=== PATIENT | male | born 1975 | race Caucasian/White ===

== ENCOUNTER 2021-02-16 00:12 | Emergency (ER) | payer MEDICARE, MEDICAID, SELFPAY ==
[2021-02-16 00:14] VITALS: BP 140/89; PULSE 100; RESP 22; TEMP 36.6; O2SAT 96
--- NOTE | 2021-02-16 01:19 | ED.WOUNDLAC ---
HPI - Wound/Laceration General Chief Complaint: Wound/Laceration Stated Complaint: lip sore Time Seen by Provider: 02/16/21 00:21 History of Present Illness HPI narrative: Patient is a 45-year-old male who presents ER with a sore to his left upper lip. Intraoral. Reports it began spontaneously draining pus today. Worsening over the last 2 days. No fevers or chills or sweats. Patient reports she had a near syncopal episode and one of his brothers caught him and he thinks he struck his lip on his tooth. Related Data Allergies Allergy/AdvReac Type Severity Reaction Status Date / Time alprazolam [From Xanax] AdvReac Severe Agitated Verified 02/16/21 00:26 gabapentin AdvReac Severe Agitated Verified 02/16/21 00:26 baclofen AdvReac Unknown Gastrointestinal Verified 02/16/21 00:26 Upset enoxaparin [From Lovenox] AdvReac Unknown Other Verified 02/16/21 00:26 prednisone AdvReac Unknown Other Verified 02/16/21 00:26 warfarin AdvReac Unknown Other Verified 02/16/21 00:26 Review of Systems Constitutional: Constitutional: Denies chills and Denies fever(s) ENT: Denies dysphagia, Denies nasal congestion and Denies sore throat Integumentary/Breasts: Skin/Breast: Denies erythema and Denies rash Comments: Lip swelling and intraoral abscess. [facility] Past Medical History Medical History (Updated 02/16/21 @ 01:25 by Fabiano Rucker MD) Diabetes Hypertension Spinal stenosis Surgical History Surgical History (Updated 02/16/21 @ 01:24 by Fabiano Rucker MD) History of back surgery Social History Social History (Updated 02/16/21 @ 01:24 by Fabiano Rucker MD) Smokeless tobacco user: chewing tobacco Substance use type: marijuana Exam Narrative: GENERAL: Well-appearing, morbidly obese, and in no acute distress. HEAD: Normocephalic, atraumatic. ENT: Mucous membranes moist. Swelling to left upper lip with intraoral area where drainage was noted. No fluctuance. No overt cellulitis. SKIN: Warm, dry, no rash. NEURO: Alert and oriented x3. PSYCH: Normal mood and affect. Course Course Emergency Course: bedside ultrasound used and no pocket of pus could be identified. Suspect infection related to intraoral bacteria. Will start on Augmentin. [place] for pain. We will also give topical mupirocin. Discharge home. Vital Signs Vital signs: Vital Signs Temperature 97.8 F 02/16/21 00:14 Pulse Rate 100 02/16/21 00:14 Respiratory Rate 22 H 02/16/21 00:14 Blood Pressure 140/89 02/16/21 00:14 Pulse Oximetry 96 02/16/21 00:14 Temperature 97.8 F 02/16/21 00:14 Pulse Rate 111 H 02/16/21 01:28 Respiratory Rate 18 02/16/21 01:28 Blood Pressure 135/89 02/16/21 01:28 Pulse Oximetry 97 02/16/21 01:28 Discharge Plan Discharge Clinical Impression: Abscess Patient Disposition: Home, Self-Care Condition: Stable Instructions: Antibiotic Form, Abscess (ED) Additional Instructions: Perform warm salt water rinses to encourage softening of your wound and drainage. Return to the ER if you have fever over 100.4 ?F, you have worsening pain or swelling, or you have difficulty breathing or swallowing. Prescriptions: New amoxicillin-pot clavulanate [Augmentin] 875-125 mg tablet 1 tablet PO Q12H Qty: 20 RF: 0 mupirocin 2 % ointment 1 applic topical BID Qty: 15 RF: 0 Follow-up/Referrals: PHYSICIAN NOT ON STAFF,NONSTAFF [Non-Staff] - Jw Nathan MD [Physician] - 1 Week
[2021-02-16] MEDS: AMOXICILLIN/CLAVULANATE K 875-125 MG TAB 1 TABLET PO (01:27)
[2021-02-16 01:28] VITALS: BP 135/89; PULSE 111; RESP 18; O2SAT 97
[2021-02-16] MEDS: HYDROcodone/acetaminophen (*CRX) 5-325 MG TABLET 2 TAB PO (01:28)
== END 2021-02-16 01:53 | disposition home or self-care (01) ==
PROVIDERS: Emergency Provider Emergency Medicine
DX: K13.0 Diseases of lips (principal); E11.9 Type 2 diabetes mellitus without complications; I10 Essential (primary) hypertension; F17.220 Nicotine dependence, chewing tobacco, uncomplicated
CPT/HCPCS: 99283; A9270

== ENCOUNTER 2021-04-23 14:36 | Emergency (ER) | payer MEDICARE, MEDICAID, SELFPAY ==
--- NOTE | ~2021-04-23 | XR_ITS ---
EXAMINATION: XR chest 1V portable EXAM DATE: 04/23/2021 18:19 INDICATION: Shortness of breath. TECHNIQUE: Portable AP frontal chest x-ray was obtained. There is no prior study for comparison. FINDINGS: The lungs are clear. There are no pleural effusions. The cardiomediastinal silhouette is within normal limits. There is no pneumothorax suspected. The bones and soft tissues are unremarkab le. IMPRESSION: No acute cardiopulmonary findings. Reviewed, dictated and finalized at location A. CHING MACHINE SET UP OPERATOR
[2021-04-23 15:00] VITALS: BP 159/97; PULSE 103; RESP 20; O2SAT 99
--- NOTE | 2021-04-23 15:04 | ECG_ITS ---
Measurements Intervals [facility] Rate: 92 P: 51 NM: 176 QRS: 40 QRSD: 101 T: 40 QT: 340 QTc: 421 Interpretive Statements SINUS RHYTHM INCOMPLETE RIGHT BUNDLE BRANCH BLOCK BASELINE ARTIFACT- I, II, III, AVR, AVL, AVF, V1 BORDERLINE ECG Electronically Signed On 04-23-2021 15:20:16 SUPERVISOR THROWING DEPARTMENT by Kevon Solares D.O.
[2021-04-23 17:34] VITALS: BP 123/83; PULSE 92; RESP 22; O2SAT 97
[2021-04-23 17:39] LABS: Glucose Point of Care 90 mg/dl (65-105)
[2021-04-23 17:45] VITALS: O2SAT 97
[2021-04-23] MEDS: KETOROLAC 15 MG/ML VIAL (*BKC) IV PUSH (18:04)
[2021-04-23 18:16] LABS: Basophils Percent Auto 0.3 % (0.2-1.2); Eosinophils Absolute Auto 0.1 K/mm3 (0-0.3); Eosinophils Percent Auto 1.4 % (0-4.4); Hematocrit 47.1 % (42.0-52.0); Immature Granulocyte Absolute 0.02 K/mm3 (0.00-0.031); Immature Granulocyte Percent A 0.3 % (0-0.5); Lymphocytes Absolute Auto 2.28 K/mm3 (0.9-3.2); Lymphocytes Percent Auto 34.8 % (18.3-44.2); Mean Corpuscular Hemoglobin 30.8 pg (26-34); Mean Corpuscular Volume 90.8 fl (80-100); Mean Platelet Volume 9.9 fl (7.4-10.4); Monocytes Absolute Auto 0.5 K/mm3 (0.1-0.6); Monocytes Percent Auto 7.9 % (2.6-8.5); Neutrophils Absolute Auto 3.6 K/mm3 (1.3-6.7); Neutrophils Percent Auto 55.3 % (45.5-73.1); Platelet Count Result 261 k/mm3 (150-375); Red Blood Count 5.19 M/mm3 (4.6-6.20); Red Cell Distribution Width 13.1 % (11.5-14.5); White Blood Count 6.6 K/mm3 (4.5-10.0)
[2021-04-23 18:32] LABS: Alanine Aminotransferase 39 U/L (4-50); Albumin Level 5.1 g/dL (3.5-5.1); Alkaline Phosphatase 98 U/L (38-126); Anion Gap 13 mmol/L (8-16); Aspartate Amino Transferase 40 U/L (17-59); Bilirubin,Total 0.6 mg/dL (0.2-1.3); Blood Urea Nitrogen 27 mg/dL (9-20); Calcium 9.4 mg/dL (8.4-10.2); Carbon Dioxide 26 mmol/L (22-30); Chloride 99 mmol/L (98-107); Estimated CRCL calculation 122 ml/min; Estimated Glomerular Filt Rate > 60; Glucose 82 mg/dL (65-110); Sodium 138 mmol/L (137-145)
[2021-04-23 18:40] LABS: Troponin I < 0.012 ng/mL (0.000-0.034)
[2021-04-23 19:02] LABS: D Dimer 0.29 ug/mL (<0.48)
[2021-04-23 19:03] VITALS: BP 129/81; PULSE 86; RESP 16; O2SAT 96
[2021-04-23 19:45] VITALS: BP 129/81; PULSE 88; RESP 20; O2SAT 97
--- NOTE | 2021-04-23 20:21 | ED.GENADULT ---
HPI - General Adult General Chief complaint: Upper Respiratory Infection <KIKI Valles Last Filed: 04/23/21 20:27> Stated complaint: COVID S/SX + <Satya Dawson PA-C - Last Filed: 04/23/21 20:27> Time Seen by Provider: 04/23/21 17:41 <Satya Dawson PA-C - Last Filed: 04/23/21 20:27> Source: patient <KIKI Valles Last Filed: 04/23/21 20:27> Mode of arrival: ambulatory <KIKI Valles Last Filed: 04/23/21 20:27> Limitations: no limitations <KIKI Valles Last Filed: 04/23/21 20:27> History of Present Illness HPI narrative: Patient is a 46-year-old male with chief complaint of cough that is sometimes productive, body aches, chest pain that has been occurring for the past week. Patient reports that his tested positive for Covid right after April 12 and he has been quarantining in the house with her. Patient reports that he is unvaccinated. Patient denies syncope, headache, palpitations, weakness, lethargy, fevers. <KIKI Valles Last Filed: 04/23/21 20:27> Related Data Home medications: Home Medications Medication Instructions Recorded Confirmed clonazepam 1 mg PO BID 04/23/21 04/23/21 duloxetine [Cymbalta] 60 mg PO BID 04/23/21 04/23/21 empagliflozin [Jardiance] 10 mg PO DAILY 04/23/21 04/23/21 esomeprazole magnesium 20 mg PO DAILY 04/23/21 04/23/21 glimepiride 4 mg PO BID 04/23/21 04/23/21 hydrochlorothiazide 25 mg PO DAILY 04/23/21 04/23/21 lisinopril [Prinivil] 20 mg PO DAILY 04/23/21 04/23/21 meloxicam 15 mg PO DAILY 04/23/21 04/23/21 metformin 1,000 mg PO BID 04/23/21 04/23/21 pregabalin 100 mg PO BID 04/23/21 04/23/21 tizanidine 4 mg PO TID PRN 04/23/21 04/23/21 <Satya Dawson PA-C - Last Filed: 04/23/21 20:27> Allergies/adverse reactions: Allergies Allergy/AdvReac Type Severity Reaction Status Date / Time alprazolam [From Xanax] AdvReac Severe Agitated Verified 04/23/21 19:05 gabapentin AdvReac Severe Agitated Verified 04/23/21 19:05 baclofen AdvReac Unknown Gastrointestinal Verified 04/23/21 19:05 Upset enoxaparin [From Lovenox] AdvReac Unknown Other Verified 04/23/21 19:05 prednisone AdvReac Unknown Other Verified 04/23/21 19:05 warfarin AdvReac Unknown Other Verified 04/23/21 19:05 <Satya Dawson PA-C - Last Filed: 04/23/21 20:27> Review of Systems Review of Systems: CONSTITUTIONAL: Denies fever, chills, or sweats. EYES: Denies visual changes, redness, or discharge. ENT: Denies rhinorrhea, congestion, sore throat, or otalgia. CARDIOVASCULAR: Reports pleuritic chest pain, palpitations, or edema. RESPIRATORY: Reports cough denies dyspnea. GASTROINTESTINAL: Denies abdominal pain, nausea, vomiting, or diarrhea. GENITOURINARY: Denies dysuria or hematuria. SKIN: Denies rash or itching. MUSCULOSKELETAL: Denies back pain, joint pain, or myalgia. NEUROLOGIC: Denies headache, numbness, dizziness, or weakness. PSYCHIATRIC: Denies anxiety or depression. <Satya Dawson PA-C - Last Filed: 04/23/21 20:27> [facility] Past Medical History Medical History: Medical History (Updated 04/23/21 @ 20:26 by Satya Dawson PA-C) Diabetes Hypertension Spinal stenosis <Satya Dawson PA-C - Last Filed: 04/23/21 20:27> Surgical History Surgical History: Surgical History (Updated 02/16/21 @ 01:24 by Fabiano Rucker MD) History of back surgery <Satya Dawson PA-C - Last Filed: 04/23/21 20:27> Social History Social History: Social History (Updated 02/16/21 @ 01:24 by Fabiano Rucker MD) Smokeless tobacco user: chewing tobacco Substance use type: marijuana <Satya Dawson PA-C - Last Filed: 04/23/21 20:27> Exam Narrative: GENERAL: Well-appearing, well-nourished, and in no acute distress. Not diaphoretic. Nontoxic in appearance. HEAD: Normocephalic, atraumatic. EYES: PERRLA and EOMI. CHEST: Clear to auscultation. No respiratory distress. No wheezes rales or rho
[2021-04-23 20:54] VITALS: BP 124/83; PULSE 86; RESP 18; O2SAT 98
[2021-04-24 14:36] LABS: SARS-CoV-2 RNA PCR Positive
== END 2021-04-23 20:55 | disposition home or self-care (01) ==
PROVIDERS: Physician Assistant; Emergency Provider General Practice
DX: U07.1 COVID-19 (principal); I45.10 Unspecified right bundle-branch block; E11.9 Type 2 diabetes mellitus without complications; Z79.84 Long term (current) use of oral hypoglycemic drugs; I10 Essential (primary) hypertension
CPT/HCPCS: 36415; 71045; 80053; 82948; 84484; 85025; 85380; 93005; 96374; 99284; C9803; J1885; U0003; U0005

== ENCOUNTER 2021-05-18 15:12 | Emergency (ER) | payer MEDICARE, SELFPAY ==
[2021-05-18 15:23] VITALS: BP 147/87; PULSE 100; RESP 20; TEMP 36.9; O2SAT 97
--- NOTE | 2021-05-18 15:45 | ED.GENADULT ---
HPI - General Adult General Chief complaint: Abdominal Pain Stated complaint: Abdominal Bruising Source: patient Mode of arrival: ambulatory Limitations: no limitations History of Present Illness HPI narrative: Patient is a morbidly obese 46-year-old male with history significant for be sure to check your sugars frequently, as antibiotics are known to increase glucose levels. Report any abnormal findings to your primary care provider., Hypertension, and anxiety/depression who presents to the [facility] via POV for evaluation of right upper abdominal pain that began 2 days ago. Patient reports pain began after coughing. He states his pain is constant and sharp/burning in nature. Current pain is 8 out of 10 on a pain scale. Pain is alleviated with applied pressure and worsens with sitting up. Denies taking OTC meds for symptoms. He is accompanied by his neighbor. Patient reports a history of appendectomy otherwise negative abdominal history. Related Data Home Medications Medication Instructions Recorded Confirmed clonazepam 1 mg PO BID 04/23/21 05/18/21 duloxetine [Cymbalta] 60 mg PO BID 04/23/21 05/18/21 empagliflozin [Jardiance] 10 mg PO DAILY 04/23/21 05/18/21 esomeprazole magnesium 20 mg PO DAILY 04/23/21 05/18/21 glimepiride 4 mg PO BID 04/23/21 05/18/21 hydrochlorothiazide 25 mg PO DAILY 04/23/21 05/18/21 lisinopril [Prinivil] 20 mg PO DAILY 04/23/21 05/18/21 meloxicam 15 mg PO DAILY 04/23/21 05/18/21 metformin 1,000 mg PO BID 04/23/21 05/18/21 pregabalin 100 mg PO BID 04/23/21 05/18/21 tizanidine 4 mg PO TID PRN 04/23/21 05/18/21 aspirin [Adult Low Dose Aspirin] 81 mg PO DAILY 05/18/21 05/18/21 Allergies Allergy/AdvReac Type Severity Reaction Status Date / Time alprazolam [From Xanax] AdvReac Severe Agitated Verified 05/18/21 15:35 gabapentin AdvReac Severe Agitated Verified 05/18/21 15:35 baclofen AdvReac Intermediate Gastrointestinal Verified 05/18/21 15:35 Upset enoxaparin [From Lovenox] AdvReac Intermediate Hives Verified 05/18/21 15:35 prednisone AdvReac Intermediate Hives Verified 05/18/21 15:35 warfarin AdvReac Intermediate Hives Verified 05/18/21 15:35 Review of Systems Review of Systems: Pertinent negatives fever, chills, sweats, malaise, poor p.o. intake, change in appetite, headache, dizziness, LOC, urinary sxs, back/flank pain, extremity paresthesias, blood in stool, nausea, vomiting, diarrhea, constipation, belching, bloating, dry mouth, heartburn, jaundice, vomiting blood, and testicular pain. PMFSH Past Medical History Medical History Diabetes Hypertension Spinal stenosis Surgical History Surgical History History of back surgery Social History Social History Smokeless tobacco user: chewing tobacco Substance use type: marijuana Comments I have reviewed and agree with the patient's past medical, surgical, social, and family hx as documented by the RN. There is no relevant family history pertinent to the presenting complaint. Exam Narrative: GENERAL: Well-appearing, well-nourished, and in no acute distress. HEAD: Normocephalic, atraumatic. NECK: Supple. No lymphadenopathy or nuchal rigidity. CHEST: Lung sounds are clear to auscultation in bilateral lung chen. No respiratory distress. HEART: Regular rate and rhythm. No murmur, gallop, or rub heard. ABDOMEN: Soft, obese, non-distended, diminished and distant bowel sounds in all quadrants. Guarding right upper quadrant. No rebound tenderness. Moderate pain palpated in the right upper quad. Swelling noted to right upper quadrant. No pulsatile or palpable abdominal mass(es). No CVAT : Bladder non-distended, non-tender EXTREMITIES: Normal range of motion. No edema. SKIN: Warm, dry, no rash. No skin color changes. Excellent turgor. NEURO: No focal
== END 2021-05-18 15:50 | disposition short-term general hospital (02) ==
PROVIDERS: Emergency Provider Nurse Practitioner Family
DX: R10.811 Right upper quadrant abdominal tenderness (principal); F17.220 Nicotine dependence, chewing tobacco, uncomplicated; E11.9 Type 2 diabetes mellitus without complications; I10 Essential (primary) hypertension; M48.00 Spinal stenosis, site unspecified; F12.90 Cannabis use, unspecified, uncomplicated
CPT/HCPCS: 99212; G0463

== ENCOUNTER 2021-05-18 15:59 | Emergency (ER) | payer MEDICARE, MEDICAID, SELFPAY ==
--- NOTE | ~2021-05-18 | CT_ITS ---
EXAMINATION: CT abdomen pelvis wo con DATE: 05/18/2021 17:36 INDICATION: Right upper quadrant abdominal pain and swelling TECHNIQUE: Computed tomography (CT) of the abdomen and pelvis was performed without intravenous contr ast. Automated exposure control and iterative reconstruction technique were employed. Exam dose: 161 0.32 mGy-cm total exam DLP. COMPARISON: None. FINDINGS: There is minimal bilateral lower lobe dependent atelectasis. Calcified right lower lobe pul monary granuloma and a couple of calcified splenic granulomas, consistent with old granulomatous dise ase. Normal heart size. No pericardial or pleural effusion. There is diffuse hepatic steatosis. No hepatic, splenic, pancreatic, and adrenal or renal space-occup rajan mass lesion is evident on this limited noncontrast examination. The gallbladder is present. No pericholecystic fluid or fat stranding. No bile duct or pancreatic doris t dilatation. No ureteral calculus or hydroureteronephrosis. The urinary bladder is unremarkable. Status post hyste rectomy. Minimal diverticulosis of the colon; no CT evidence of diverticulitis. No appendix is noted. Surgical clips in the right lower quadrant are likely due to appendectomy. No bowel obstruction or intraperitoneal free air. Small fat-containing umbilical hernia. There is moderately prominent right hip osteoarthritis. There is severe secondary osteoarthritis of the left hip associated with avascular necrosis of the le ft femoral head, with prominent deformity and irregularity of the left femoral head and acetabulum. 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 Reviewed, dictated and finalized at location A. VE SETTER IMPRESSION: Diffuse hepatic steatosis Minimal diverticulosis of the colon; no CT evidence of diverticulitis Probable appendectomy Avascular necrosis left femoral head and severe secondary left hip osteoarthrit is Moderately prominent right hip osteoarthritis
[2021-05-18 16:05] VITALS: BP 122/102; PULSE 101; RESP 24; O2SAT 97
[2021-05-18] MEDS: KETOROLAC 30 MG/ML VIAL (*BKC) 60 MG IM (17:48)
[2021-05-18 18:08] LABS: Basophils Absolute Auto 0.1 K/mm3 (0.0-0.1); Basophils Percent Auto 0.5 % (0.2-1.2); Eosinophils Absolute Auto 0.2 K/mm3 (0-0.3); Eosinophils Percent Auto 1.9 % (0-4.4); Hematocrit 41.7 % (42.0-52.0); Hemoglobin 14.2 g/dL (14.0-18.0); Immature Granulocyte Absolute 0.07 K/mm3 (0.00-0.031); Immature Granulocyte Percent A 0.6 % (0-0.5); Lymphocytes Absolute Auto 2.59 K/mm3 (0.9-3.2); Lymphocytes Percent Auto 23.6 % (18.3-44.2); Mean Corpuscular HGB Conc 34.1 g/dl (32-36); Mean Corpuscular Hemoglobin 30.7 pg (26-34); Mean Corpuscular Volume 90.3 fl (80-100); Mean Platelet Volume 9.5 fl (7.4-10.4); Monocytes Absolute Auto 0.8 K/mm3 (0.1-0.6); Monocytes Percent Auto 7.4 % (2.6-8.5); Neutrophils Absolute Auto 7.2 K/mm3 (1.3-6.7); Platelet Count Result 226 k/mm3 (150-375); Red Blood Count 4.62 M/mm3 (4.6-6.20); Red Cell Distribution Width 13.7 % (11.5-14.5)
[2021-05-18 18:20] LABS: Alanine Aminotransferase 39 U/L (4-50); Albumin Level 4.7 g/dL (3.5-5.1); Alkaline Phosphatase 123 U/L (38-126); Anion Gap 7 mmol/L (8-16); Aspartate Amino Transferase 34 U/L (17-59); Bilirubin,Total 0.5 mg/dL (0.2-1.3); Blood Urea Nitrogen 28 mg/dL (9-20); Calcium 9.5 mg/dL (8.4-10.2); Carbon Dioxide 31 mmol/L (22-30); Chloride 99 mmol/L (98-107); Estimated CRCL calculation 147 ml/min; Estimated Glomerular Filt Rate > 60; Glucose 99 mg/dL (65-110); Potassium 4.3 mmol/L (3.4-5.0); Sodium 137 mmol/L (137-145)
--- NOTE | 2021-05-18 18:48 | ED.ABDPAIN ---
HPI - Abdominal Pain General Chief Complaint: Abdominal Pain Stated Complaint: abd swelling after coughing Time Seen by Provider: 05/18/21 16:56 Source: patient Mode of arrival: ambulatory Limitations: no limitations History of Present Illness HPI narrative: 46-year-old male Patient says that 2 days ago he gave a hard cough with ensuing sharp pain in his right lower chest/right upper quadrant Subsequently he felt like he had a bulge in the area, which he does not seem to, and pain which is worse with movements or breathing or coughing and relieved by holding pressure on his lower chest No shortness of breath, no nausea vomiting diarrhea Related Data Home Medications Medication Instructions Recorded Confirmed clonazepam 1 mg PO BID 04/23/21 05/18/21 duloxetine [Cymbalta] 60 mg PO BID 04/23/21 05/18/21 empagliflozin [Jardiance] 10 mg PO DAILY 04/23/21 05/18/21 esomeprazole magnesium 20 mg PO DAILY 04/23/21 05/18/21 glimepiride 4 mg PO BID 04/23/21 05/18/21 hydrochlorothiazide 25 mg PO DAILY 04/23/21 05/18/21 lisinopril [Prinivil] 20 mg PO DAILY 04/23/21 05/18/21 meloxicam 15 mg PO DAILY 04/23/21 05/18/21 metformin 1,000 mg PO BID 04/23/21 05/18/21 pregabalin 100 mg PO BID 04/23/21 05/18/21 tizanidine 4 mg PO TID PRN 04/23/21 05/18/21 aspirin [Adult Low Dose Aspirin] 81 mg PO DAILY 05/18/21 05/18/21 Allergies Allergy/AdvReac Type Severity Reaction Status Date / Time alprazolam [From Xanax] AdvReac Severe Agitated Verified 05/18/21 16:10 gabapentin AdvReac Severe Agitated Verified 05/18/21 16:10 baclofen AdvReac Intermediate Gastrointestinal Verified 05/18/21 16:10 Upset enoxaparin [From Lovenox] AdvReac Intermediate Hives Verified 05/18/21 16:10 prednisone AdvReac Intermediate Hives Verified 05/18/21 16:10 warfarin AdvReac Intermediate Hives Verified 05/18/21 16:10 Review of Systems Review of Systems: All systems reviewed & are unremarkable except as noted in HPI and below Constitutional: Constitutional: Reports no additional constitutional complaints, Denies chills, Denies fever(s) and Denies headache(s) Eyes: Eyes: Reports no additional eye complaints and Denies change in vision ENT: Denies headache(s) and Denies sore throat Cardiovascular: Cardiovascular: Reports chest pain, Denies radiating jaw, neck or arm pain and Denies dyspnea Respiratory: Respiratory: Reports cough and Denies dyspnea Gastrointestinal: Gastrointestinal: Reports abdominal pain, Denies diarrhea and Denies vomiting Genitourinary: Genitourinary: Denies dysuria and Denies urinary frequency Musculoskeletal: Musculoskeletal: Denies deformity, Denies arthralgias, Denies joint swelling and Denies numbness Integumentary/Breasts: Skin/Breast: Denies rash and Denies wounds Neurologic: Denies headache(s), Denies focal weakness and Denies numbness Psychiatric: Psychiatric: Reports no additional psychiatric complaints Endocrine: Endocrine: Reports no additional endocrine complaints Hematologic/Lymphatic: Hematologic/Lymphatic: Reports no additional hematologic/lymphatic complaints Allergic/Immunologic: Allergic/Immunologic: Reports no additional allergic/immunologic complaints [facility] Past Medical History Medical History Diabetes Hypertension Spinal stenosis Surgical History Surgical History History of back surgery Social History Social History Smokeless tobacco user: chewing tobacco Substance use type: marijuana Exam Const: General: cooperative, no acute distress and alert Nutritional Appearance: obese Orientation/consciousness: patient oriented x3 (alert) HENMT: Head: normal to inspection, normocephalic and atraumatic Ears: external ears normal General nose exam: no epistaxis Eyes: Conjunctivae: conjunctivae normal EOM: EOMs intact bilaterally Neck: Neck: normal
== END 2021-05-18 19:15 | disposition home or self-care (01) ==
PROVIDERS: Emergency Provider Emergency Medicine
DX: S29.011A Strain of muscle and tendon of front wall of thorax, initial encounter (principal); E11.9 Type 2 diabetes mellitus without complications; I10 Essential (primary) hypertension; F17.220 Nicotine dependence, chewing tobacco, uncomplicated; K57.90 Diverticulosis of intestine, part unspecified, without perforation or abscess without bleeding; M87.9 Osteonecrosis, unspecified; M16.0 Bilateral primary osteoarthritis of hip; Z79.82 Long term (current) use of aspirin; Z79.84 Long term (current) use of oral hypoglycemic drugs; X50.9XXA Other and unspecified overexertion or strenuous movements or postures, initial encounter
CPT/HCPCS: 36415; 74176; 80053; 85025; 96372; 99284; J1885

== ENCOUNTER 2023-03-07 10:35 | Emergency (ER) | payer MEDICARE, MEDICAID, SELFPAY ==
--- NOTE | ~2023-03-07 | CT_ITS ---
EXAMINATION: CT brain wo con DATE: 03/07/2023 11:54 INDICATION: Hallucinations, new onset. TECHNIQUE: Computed tomography (CT) of the head was performed without intravenous contrast. The mA wa s adjusted according to patient size. Iterative reconstruction technique was employed. The dose-lengt h product was 681.00 mGy-cm. COMPARISON: None FINDINGS: There is no intracranial hemorrhage, acute infarction, or abnormal intracranial mass lesion . The ventricles are normal in size. There is mucosal thickening in the paranasal sinuses. There are old blowout fractures of the medial wall and floor of right orbit. The mastoid air cells are normal. IMPRESSION: 1. Normal brain. Reviewed, dictated and finalized at location A. KER OPERATOR IMPRESSION: 1. Normal brain.
[2023-03-07 10:38] VITALS: BP 131/93; PULSE 100; RESP 20; TEMP 36.6; O2SAT 95
--- NOTE | 2023-03-07 11:01 | ECG_ITS ---
Measurements Intervals [facility] Rate: 91 P: 0 MN: 182 QRS: 61 QRSD: 102 T: 47 QT: 340 QTc: 420 Interpretive Statements SINUS RHYTHM INCOMPLETE RIGHT BUNDLE BRANCH BLOCK BASELINE ARTIFACT- I, III ABNORMAL ECG COMPARED TO ECG 04/23/2021 15:07:45 NO SIGNIFICANT CHANGES Electronically Signed On 03-07-2023 14:29:00 CENTRIFUGAL OPERATOR by Kevon Solares D.O.
--- NOTE | 2023-03-07 11:10 | ED.GENADULT ---
HPI - General Adult General Chief complaint: Psychiatric Symptoms Stated complaint: invol psych Time Seen by Provider: 03/07/23 11:08 History of Present Illness HPI narrative: Patient is a 47-year-old male who presents to the emergency department this morning via EMS due to suicidal behavior. EMS states that they were called by the patient's as the patient tried to take a large number of his tizanidine pills. states that he stated that he was going to take a large number of pills and went into the bathroom but when he came out he had all the pills in his pocket. is unsure how many pills he went into the bathroom with, patient initially stated that he took 20 pills, however, he then changed his story and states that he took 10 or less pills. states that ever since he was started on testosterone injections the beginning of January, 3-4 weeks in 2 his treatments he started to experience what she describes as a sundowning. Every night, he would become a very altered and informed her that he is having some auditory and visual hallucinations. states that he will tell her that he can see things and then when she tries to see where he is pointing at event he states that whatever he saw is no longer there. states that he is diagnosed with depression but denies any additional psychiatric illness including bipolar or schizophrenia. She does admit that in the past he has had a history of a suicidal attempt which he ended up admitted to a hospital on a mechanical ventilator. Other than this incident and another incident that occurred before they were when he was young, she denies any suicidal or homicidal ideations or attempt. believes that is the hallucinations that she attributes to his testosterone that is causing his symptoms rather than suicidal ideations. She does not believe that this was suicide attempt to end his life. Patient is currently A&Ox4 and is denying any homicidal ideations but does admit to having suicidal thoughts recently and admits that he has attempted to hurt himself in the past which is what caused him to end up in the hospital on a ventilator in the past. Patient denies any chest pain, shortness of breath, nausea, vomiting, abdominal pain, dysuria, hematuria, constipation, diarrhea, melena, hematochezia, fevers or chills. Patient also denies any headaches, dizziness, lightheadedness, blurry visions, focal weakness, numbness and or tingling. There are no other modifying, alleviating, or precipitating factors at this time. Related Data Home Medications Medication Instructions Recorded Confirmed clonazepam 1 mg tablet 1 mg PO BID 04/23/21 05/18/21 duloxetine 60 mg capsule,delayed 60 mg PO BID 04/23/21 05/18/21 release (Cymbalta) empagliflozin 10 mg tablet 10 mg PO DAILY 04/23/21 05/18/21 (Jardiance) esomeprazole magnesium 20 mg 20 mg PO DAILY 04/23/21 05/18/21 granules delayed release for susp glimepiride 4 mg tablet 4 mg PO BID 04/23/21 05/18/21 hydrochlorothiazide 25 mg tablet 25 mg PO DAILY 04/23/21 05/18/21 lisinopril 20 mg tablet 20 mg PO DAILY 04/23/21 05/18/21 meloxicam 15 mg tablet 15 mg PO DAILY 04/23/21 05/18/21 metformin 500 mg tablet 1,000 mg PO BID 04/23/21 05/18/21 pregabalin 100 mg capsule 100 mg PO BID 04/23/21 05/18/21 tizanidine 4 mg tablet 4 mg PO TID PRN Pain 04/23/21 05/18/21 aspirin 81 mg tablet 81 mg PO DAILY 05/18/21 05/18/21 Allergies Allergy/AdvReac Type Severity Reaction Status Date / Time alprazolam [From Xanax] AdvReac Severe Agitated Verified 05/18/21 16:10 gabapentin AdvReac Severe Agitated Verified 05/18/21 16:10 baclofen AdvReac Intermediate Gastrointestinal Verified 05/18/21 16:10 Upset enoxaparin [From Lovenox] AdvReac Intermediate Hives Verified 05/18/21 16:10 prednisone AdvReac Intermediate Hives Verified 05/18/21 16:10 warfarin AdvReac Intermediate Hives Verified 05/18/21 16:10 Review of Systems Review of Systems: All systems are r
[2023-03-07 11:13] LABS: Glucose Point of Care 105 mg/dl (65-105)
[2023-03-07 11:15] VITALS: BP 124/71; PULSE 97; RESP 16; O2SAT 98
[2023-03-07 11:16] VITALS: PULSE 94; RESP 15
[2023-03-07 11:17] VITALS: BP 111/78; PULSE 90; RESP 19; O2SAT 99
[2023-03-07 11:30] VITALS: PULSE 99; RESP 20
[2023-03-07 11:32] VITALS: BP 100/71; PULSE 100; RESP 20; O2SAT 100
--- NOTE | 2023-03-07 11:39 | PC.NURSE ---
Pt is very sleepy and drowsy, not able to obtain much information from the pt at this time. Pt's here at bedside, she said that he has hx of Meth use, overdose, and psych hospitalizations in the past, last hospitalized 3 years ago with same thing psychosis. Today Pt said he took about 10 4mg Tizanidine tills in intention to kill himself. Pt is also having hallucinations that started after he started testosterone shots last month. Pt also said I can not take this anymore this, these things are bad .
[2023-03-07 11:53] LABS: Basophils Absolute Auto 0.1 K/mm3 (0.0-0.1); Basophils Percent Auto 0.6 % (0.2-1.2); Eosinophils Absolute Auto 0.2 K/mm3 (0-0.3); Eosinophils Percent Auto 1.5 % (0-4.4); Hemoglobin 16.6 g/dL (14.0-18.0); Immature Granulocyte Absolute 0.03 K/mm3 (0.00-0.031); Immature Granulocyte Percent A 0.3 % (0-0.5); Lymphocytes Absolute Auto 2.09 K/mm3 (0.9-3.2); Lymphocytes Percent Auto 19.6 % (18.3-44.2); Mean Corpuscular HGB Conc 31.9 g/dl (32-36); Mean Corpuscular Hemoglobin 29.6 pg (26-34); Mean Corpuscular Volume 92.9 fl (80-100); Mean Platelet Volume 9.9 fl (7.4-10.4); Monocytes Absolute Auto 0.8 K/mm3 (0.1-0.6); Monocytes Percent Auto 7.2 % (2.6-8.5); Neutrophils Absolute Auto 7.6 K/mm3 (1.3-6.7); Neutrophils Percent Auto 70.8 % (45.5-73.1); Platelet Count Result 291 k/mm3 (150-375); Red Cell Distribution Width 14.3 % (11.5-14.5); White Blood Count 10.7 K/mm3 (4.5-10.0)
[2023-03-07 11:54] LABS: Appearance Urine Clear (Clear); Bilirubin Urine Negative (Negative); Blood Urine Negative (Negative); Color Urine Yellow (Yellow); Glucose Urine UA 3+ mg/dL (Negative); Ketones Urine 1+ mg/dL (Negative); Leukocyte Esterase Ur Negative LEU/UL (Negative); Nitrate Urine Negative (Negative); Protein Urine Negative (Negative); Specific Grav Ur 1.016 (1.001-1.035); pH Urine 5.5 (5.0-9.0)
[2023-03-07 11:57] LABS: Add Urine Microscopic? NO
[2023-03-07 12:05] LABS: Acetaminophen < 10 ug/mL (10-30); Salicylate < 1.0 mg/dL (2-20)
[2023-03-07 12:10] LABS: Alanine Aminotransferase 46 U/L (6-50); Albumin Level 4.5 g/dL (3.5-5.1); Alkaline Phosphatase 79 U/L (38-126); Anion Gap 10 mmol/L (8-16); Aspartate Amino Transferase 54 U/L (17-59); Bilirubin,Total 1.1 mg/dL (0.2-1.3); Blood Urea Nitrogen 22 mg/dL (9-20); Calcium 9.1 mg/dL (8.4-10.2); Carbon Dioxide 26 mmol/L (22-30); Chloride 102 mmol/L (98-107); Estimated CRCL calculation 127 ml/min; Estimated Glomerular Filt Rate > 60; Glucose 92 mg/dL (65-110); Potassium 4.6 mmol/L (3.4-5.0); Sodium 138 mmol/L (137-145)
[2023-03-07 12:12] LABS: Barbiturate Screen Urine Negative (Negative); Benzodiazepines Screen Urine Negative (Negative)
[2023-03-07 12:16] LABS: Ethanol < 10 mg/dL (<10)
[2023-03-07] MEDS: SODIUM CHLORIDE 0.9% IV 1,000 ML 999 ML IV CONT (12:17)
[2023-03-07 12:27] LABS: Cannabinoid Screen Urine Positive (Negative); Cocaine Screen Urine Negative (Negative); Methadone Screen Urine Negative (Negative); Opiate Screen Urine Negative (Negative); Phencyclidine Screen Urine Negative (Negative)
[2023-03-07 12:30] LABS: Influenza A QL RT-PCR Negative (Negative); Influenza B QL RT-PCR Negative (Negative); SARS-CoV-2 RNA PCR Negative (Negative)
[2023-03-07 12:43] LABS: Amphetamine Screen Urine Positive (Negative)
--- NOTE | 2023-03-07 15:34 | PC.NURSE ---
Crisis here to Eval pt. Pt started to yell out and ask to go smoke. Pt walked out through EMS doors, pull his IV out, security called and pt taken back to the room. Pt is very impulsive and aggressive.
[2023-03-07] MEDS: LORazepam INJ (*CRX) 2 MG/ML VIAL (15:35)
[2023-03-07] MEDS: HALOPERIDOL LACTATE 5 MG/ML VIAL 10 MG (15:35)
[2023-03-07] MEDS: NICOTINE (*PBKC) 21 MG PATCH 1 PATCH TRANSDERM (15:35)
--- NOTE | 2023-03-07 15:35 | PC.NURSE ---
pt agitated, asked if he would take medication to help remain calm. pt agreeable VORB Haldol 10 mg and Ativan 2 mg IM x1 from Dr Mendez pt received IM, without issue. pt educted on meds given pt also offered food and drink
--- NOTE | 2023-03-07 15:58 | PC.NURSE ---
pt walked out back exit door. pt wanting to smoke. educated on policy. Security are watching pt, Minoo MUNOZ called to assist. pt asked for more medication, tried to help pt understand safety, and inability to jut give medications without MD orders.
--- NOTE | 2023-03-07 20:49 | PC.NURSE ---
1944 patient accepted to [facility] 5533. [facility] states to wait for transport set up until the RN calls for report.
== END 2023-03-07 21:58 ==
PROVIDERS: Emergency Provider Emergency Medicine; PCP Family Medicine Sports Medicine
DX: T42.8X2A Poisoning by antiparkinsonism drugs and other central muscle-tone depressants, intentional self-harm, initial encounter (principal); Z11.52 Encounter for screening for COVID-19; F32.A Depression, unspecified; E11.9 Type 2 diabetes mellitus without complications; I10 Essential (primary) hypertension; F17.220 Nicotine dependence, chewing tobacco, uncomplicated; Z79.82 Long term (current) use of aspirin; Z79.84 Long term (current) use of oral hypoglycemic drugs; Z79.899 Other long term (current) drug therapy; I45.10 Unspecified right bundle-branch block
CPT/HCPCS: 36415; 70450; 80053; 80307; 81003; 82948; 85025; 87636; 93005; 96361; 96372; 96374; 99285; A9270; J1630; J2060; J7030

== ENCOUNTER 2025-01-18 13:00 | Outpatient (CLI) | payer MEDICARE, SELFPAY ==
--- OUTSIDE RECORDS SUMMARY | 2021-08-28 10:30 | XMS_ITS | Continuity of Care Document ---
[facility] Organization [facility] Address [address] [place] [address] Phone Care Team Providers Care Dental Internship Name Role Phone Bud Degroot MD Unavailable Unavailable Procedures Procedure Date LOWER EXTREM CAT W/O CONTRAST Advance Directives Directive Yes / No Effective Date File Name No Information Encounters Encounter Description Practice Location Reason(s) For Visit Diagnoses Date Provider Providers Copied on Encounter [facility], [address], [place], [place], [id number], [place] tel:[phone] [facility] No Information Mikayla Farrell. [address] , [place], [place], [id number], [place]. tel:[phone] Referring Provider: Adalid Thompson, [address], [place], [address]. tel:[phone] Family History Family Member Type Diagnosis Age At Onset No Information Payers Payer name Insurance type Covered constitution party ID Authoriza tion(s) MEDICARE [id number] [place] MEDICAID [facility] [id number] Social History Type Description Quantity Date Captured Comments Sex Male Smoking Status No Information Chief Complaint And Reason For Visit No Information Reason For Referral Reason For Referral No Information History Of Present Illness Encounter Date Complaint History Of Prese nt Illness No Information Functional Status Date Functional Assessmen t No Information Instructions Date Instruction Additional Infor mation No Information Assessments Type Assessment Date No Information Patient Care Teams Name Effective Dates (start - stop) Status Members No Information
--- OUTSIDE RECORDS SUMMARY | 2025-01-18 13:08 | XMS_ITS | Patient Health Record ---
Author Organization [facility] Address [address] [place] [address] [place] [address] Care Team Providers Care Enamel Finisher Name Role Phone Linden iGbbs Unavailable [phone] ALLERGIES Allergen (clinical drug ingredient) Drug/Non Drug Allergy documented on EMR Reaction Allergy Type Onset Date Status alprazolam Alprazolam Unknown Drug Allergy Activ e gabapentin Gabapentin nausea and vomiting Drug Allergy Active Tape Unknown Allergy Active warfarin Warfarin Unknown Drug Allergy Active REASON FOR REFERRAL No Information MEDICATIONS Medication SIG (Take, Route, Frequency, Duration) Notes Start Date End Date Status Atorvastatin Calcium 20 MG 1 tablet Oral ly Once a day for 30 day(s) Active metFORMIN HCl ER 500 MG 1 tablet with ev ening meal Orally 2x/day Active Meloxicam 15 MG 1 tablet Orally Once a day for 30 day(s) Active Lisinopril 20 MG 1 tablet Orally Once a day for 30 day(s) Active clonazePAM 1 MG 1 tablet Orally Once a day Active Omeprazole 20 MG 1 capsule 30 minutes before morning meal Orally Once a day for 30 day(s) Active Pregabalin 100 MG 1 capsule Orally Onc e a day Active Jardiance 25 MG 1 tablet Orally Once a day for 30 day(s) Active Glimepiride 4 MG 1 tablet with breakf ast or the first main meal of the day Orally 2x/day Active hydroCHLOROthiazide 25 MG 1 tablet in th e morning Orally Once a day for 30 day(s) Active DULoxetine HCl 60 MG 1 capsule Orally Tw ice a day Active Aspirin 81 MG 1 tablet Orally Once a day for 30 day(s) Active PROBLEMS Problem Type ICD Code Onset Dates Problem Status W/U Status Risk SNOMED Code Notes Problem Morbid (severe) obesity due to excess calories (E66.01) Active confirmed Morbid obesity (disorder) (987348251) Problem Fear of injections and transfusions (F40.231) Active confirmed Fear of medical treatment (566220791) Problem Bilateral primary osteoarthritis of hip (M16.0) Active confirmed Localized, primary osteoarthritis of the pelvic region and thigh (421412567) Problem Unilateral primary osteoarthritis, right hip (M16.11) Active confirmed Localized , primary osteoarthritis of the pelvic region and thigh (102338947) Problem Pain in unspecified hip (M25.559) Active confirmed Arthralgia of t he pelvic region and thigh (120636898) Problem Sacroiliitis, not elsewhere classified (M46.1) Active confirmed Solitary sacroiliitis (640534727) Problem Spondylosis without myelopathy or radiculopathy, lumbar region (M47.816) Active confirmed Lumbosacral spondylosis without myelopathy (67668563) Problem Spondylosis without myelopathy or radiculopathy, lumbosacral region (M47.817) Active confirmed Lumbosacral spondylosis without myelopathy (disorder) (93307349) Problem Intervertebral disc disorders with radiculopathy, lumbar region (M51.16) Active confirmed Radiculopathy d ue to lumbar intervertebral disc disorder (882028431738387) Problem Other intervertebral disc degeneration, lumbar region (M51.36) Active confirmed Degeneration of lumbar intervertebral disc (15591511) Problem Radiculopathy, lumbar region (M54.16) Active confirmed Lumbar radiculopathy (120436966) Problem Radiculopathy, lumbosacral region (M54.17) Active confirmed Lumbosacral radiculopathy (5481544) Problem Postlaminectomy syndrome, not elsewhere classified (M96.1) Active confirmed Post-lami nectomy syndrome (84421726) Problem Osseous stenosis of neural canal of lumbar region (M99.33) Active confirmed Spinal stenosis of lumbar region (17600417) Problem 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) Active confirmed High risk drug monitoring status (633951834) PLAN OF TREATMENT Pending Test Test Name Order Date MRI : Lumbar Spine with and without Cont rast (60840) 09/11/2021 Insurance Providers Payer Name Payer Address Payer Phone Subscriber Number Group Number Insured Name Patient Relationship to Insured Coverage Start Date Coverage End Date Medicare [place] [address] [address] [place] [address] [id number] BENJY BRENNER Self - patient is the insured Medicaid [place] [address] [address] [place] [address] [id number] BENJY BRENNER Self - patient is the insured MEDICAL (GENERAL) HISTORY Medical History History ICD Code Acid reflux Asthma Depression Diabetes Hypertension Osteoarthritis Sleep apnea Drug abuse Surgical History Surgery Date(Month/Year) Lumbar laminectomy/discectomy L3-L5 2018
--- OUTSIDE RECORDS SUMMARY | 2025-01-18 13:08 | XMS_ITS | Clinical Summary ---
Author Organization [facility] Address [address] [place] [address] Phone Care Team Providers Care Drama Professor Name Role Phone Jim Dykes MD Primary Care Provider [phone] Allergies Active Allergy Reactions Criticality Noted Date Comments Alprazolam Unknown High 03/11/2018 Baclofen Unknown 03/17/2018 Enoxaparin Unknown 03/17/2018 Patient states he had a reaction to lovenox, (redness and swelling in leg, may not be a true allergy) But that he has used heparin since then without any problems Gabapentin (Bulk) Other (See Comments) Medium 07/20/19 19 Makes him very angry Prednisone Unknown High 03/11/2018 Warfarin Unknown 03/17/2018 Medications lisinopriL (PRINIVIL) 10 mg tablet Take 1 Tablet (10 mg) by mouth daily. 30 Tablet 1 9 Active Additional Information Patient taking differently: 20 mgOral DAILY, Reported on 11/21/2020 TURMERIC ORAL Take 1 Capsule by mouth daily inspector and hand packager. 9 Active KRILL OIL ORAL Take 1 Tablet by mouth 3 times daily. 9 Active albuterol HFA 90 mcg inhaler Take 2 Puffs by inhalation every 6 hours as needed for Shortness of Breath. 9 Active cholecalciferol, Vitamin D3, 125 mcg (5,000 unit) Capsule Take 5,000 Units by mouth daily at bedtime. 9 Active vit calc,iron,folic ( VITAMIN ORAL) Take 1 Each by mouth 2 times daily Gummies . 9 Active glimepiride (AMARYL) 4 mg tablet 3 9 Active hydroCHLOROthiazi de 25 mg tablet Take 1 Tablet by mouth daily. 1 9 Active orphenadrine (NORFLEX) 100 mg Extended Release tablet TAKE 1 TABLET BY MOUTH TWICE DAILY NEEDED SPASM 180 Tablet 0 0 Active pregabalin (LYRICA) 100 mg Capsule 0 Active DULoxetine (CYMBALTA) 60 mg Capsule, Delayed Release(E.C.) Take 60 mg by mouth 2 times daily. Active metFORMIN (GLUCOPHAGE) 500 mg tablet Take 500 mg by mouth 2 times daily with meals. Active meloxicam (MOBIC) 15 mg tablet Take 15 mg by mouth daily. Active esomeprazole (NexIUM) 20 mg Capsule, Delayed Release(E.C.) Take 20 mg by mouth daily before breakfast. Active loratadine (CLARITIN) 10 mg tablet Take 10 mg by mouth daily. Active medical marijuana, for documentation purposes, Take by inhalation. Active DULoxetine (CYMBALTA) 60 mg Capsule, Delayed Release(E.C.) Take 60 mg by mouth 2 times daily. 8 Active metFORMIN (GLUCOPHAGE) 500 mg tablet Take 500 mg by mouth 2 times daily with meals. 8 Active ipratropium-albut Pat (DUONEB) 0.5 mg-3 mg(2.5 mg base)/3 mL Solution for Nebulization Take 3 mL by inhalation every 4 hours as needed for Shortness of Breath or Wheezing. 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 04/24/2020 R/O PTSD (post-traumatic stress disorder) 2020 Post-traumatic osteoarthritis of multiple joints 04/24/2020 Type 2 diabetes mellitus wit h hyperglycemia, without long-term current use of insulin 04/24/2020 Lumbar post-laminectomy syndrome 01/18/2019 Chronic, continuous use of opioids 01/18/2019 Encounter for long-term (current) use of medicat ions 01/18/2019 Chronic pain syndrome 12/20/2018 Primary osteoarthritis of left hip 12/20/2018 History of lumbar surgery 12/20/2018 S/P lumbar laminectomy 12/20/2018 DDD (degenerative disc disease), lumbar 08/31/19 Neurogenic claudication due to lumbar spinal beti nosis 08/09/2018 Personal history of DVT (deep vein thrombosis) - LLE 06/201708/03/2018 Hyperkalemia 08/03/2018 Preoperative general physical examination 2018 Epidural lipomatosis 07/27/2018 History of drug overdose 07/27/2018 Mild intermittent asthma 06/29/2018 HARJINDER (obstructive sleep apnea) 04/05/2018 Personal history of tobacco use, presenting hazards to health 04/05/2018 Morbid obesity with body mass index of 40.0-49.9 04/05/2018 Depressive disorder 03/18/2018 Substance induced mood disorder Anxiety Psychosis Diabetes mellitus Resolved Problems Problem Noted Date Diagnosed Date Resolved Date Elevated serum creatinine 04/24/2020 Intentional drug overdose 03/11/2018 Aspiration pneumonia 03/11/2018 019 Acute respiratory failure 03/11/2018 Shock circulatory 03/15/2018 Drug overdose, intentional s elf-harm, initial encounter 07/27/2018 Immunizations Immunization Administration Dates Next Due Influenza Seasonal Unspecified Formulation IM PREVNAR (PCV13) pneumococcal 13-valent conjugate Vaccine 03/08/2018 Family History Medical History Relation Name Comments Unknown Brother Healthy Daughter 1 Healthy Daughter 2 Cancer Father Alfredo Hypertension Father Alfredo Broken Bones Mother Tasia Cancer Mother Tasia Hypertension Mother Tasia Healthy Son Relation Name Status Comments Brother Alive Daughter 1 Alive Daughter 2 Alive Father Alfredo Mother Tasia Alive Son Alive Social History Tobacco Use Types Packs/Day Years Used Date Smoking Tobacco: Every Day Cigarettes 1 30 Smokeless Tobacco: Current Alcohol Use Standard Drinks/Week Comments Yes 27 (1 standard drink = 0.6 oz pu re alcohol) Sex and Gender Information Value Date Recorded Sex Assigned at Not on file Legal Sex Male 6:09 AM EQUALIZER OPERATOR Gender Identity Not on file Sexual Orientation Not on file Last Filed Vital Signs Vital Sign Reading Time Taken Comments Blood Pressure 126/78 11/21/2020 2:36 PM CDT Pulse 91 11/21/2020 2:36 PM CDT Temperature 36.8 C (98.3 F) 04/26/2020 7:20 PM EQUALIZER OPERATOR Respiratory Rate 18 11/21/2020 2:36 PM CDT Oxygen Saturation 93% 11/21/2020 2:36 PM CDT Inhaled Oxygen Concentration - - Weight 154.2 kg (340 lb) 11/21/2020 2:36 PM CDT Height 188 cm (6' 2) 11/21/2020 2:36 PM CDT Body Mass Index 43.65 11/21/2020 2:36 PM CDT Plan of Treatment Health Maintenance Due Date Last Done Comments DIABETES ANNUAL FOOT EXAM 1994 DIABETES MICROALBUMIN ANNUAL SCREEN 1994 LDL CHOLESTEROL ANNUAL 1994 DTAP/TDAP/TD VACCINES (1 - Tdap) 1995 HEPATITIS B VACCINES (1 of 3 - 19+ 3-dose series) 1995 DIABETES ANNUAL RETINAL EXAM 02/15/2020 02/14/2019 COLORECTAL SCREENING 2021 Colorectal Cancer Screening 2021 FIT-DNA Q 3 years 2021 FIT/FOBT Q 1 year 2021 Flex Sig/CT Colonography Q 5 years 2021 DIABETES HBA1C Q 6 MONTHS 08/19/20222021, 09/11/2021, 07/30/2021, Additional history exists INFLUENZA VACCINE (#1) 2024 02/22/2018 Medical Devices Implanted Type Area Night Clerk Auditor Device Identifier Shelf Expiration Date Model / Serial / Lot Hemostatic Surgiflo 8ml W/Thrombin 2994 - [id number] Implanted:Qty: 1 on 08/08/2018 by Alka Leong MD Hemostatic N/A: Spine Lumbar [employer] 09/17/2019 2994 / / [id number] Hemostatic Surgifoam Sz12-7 1971 - [id number] Implanted:Qty: 1 on 08/08/2018 by Alka Leong MD Hemostatic N/A: Spine Lumbar [employer]- [employer] 05/12/20221971 / / [id number] Hemostatic Surgiflo 8ml W/Thrombin 2994 - Sna Implanted:Qty: 1 on 08/29/2018 by Alka Leong MD Hemostatic N/A: Spine Lumbar [employer] 10/17/2019 2994 / NA / [id number] Hemostatic Surgiflo 8ml W/Thrombin 2994 - Sna Implanted:Qty: 1 on 08/29/2018 by Alka Leong MD Hemostatic N/A: Spine Lumbar [employer] 10/17/2019 2994 / NA / [id number] Hemostatic Surgifoam Sz12-7 1971 - Sna Implanted:Qty: 1 on 08/29/2018 by Alka Leong MD Hemostatic N/A: Spine Lumbar [employer]- [employer] 06/29/20221971 / NA / [id number] Duragen Plus [id number]-[id number] - Sna Implanted:Qty: 1 on 08/29/2018 by Alka Leong MD Tissue N/A: Spine Lumbar [employer] 12/17/2020 [id number] / NA / [id number] Procedures Procedure Name Priority Date/Time Associated Diagnosis Comments HEMOGLOBIN A1C Routine 07/27/2018 2:17 PM CDT from Last 3 Months or Most Recently Relevant to Health Maintenance Results * (ABNORMAL) HEMOGLOBIN A1C (07/27/2018 2:17 PM CDT) HEMOGLOBIN A1C 7.8(H) 4.0 - 6.0 % 07/27/2018 2:36 PM CDT [facility] EST. AVG GLUCOSE, A1C 177 mg/dL 07/27/2018 2:36 PM CDT [facility] Blood Venipuncture / Unknown 07/27/2018 2:17 PM CDT 07/27/2018 2:22 PM CDT Narrative [facility] - 07/27/2018 2:36 PM CDT HGB A1C INTERPRETATION NORMAL: <5.7% PRE-DIABETES: 5.7 - 6.4% DIABETES: 6.5% OR GREATER Rhett Green MD CHEMISTRY ORDERABLES Final Resu lt [facility] #[id number] [address] [place] [address] [facility] CLIA #[id number] [address] [place] [address] from Last 3 Months or Most Recently Relevant to Health Maintenance Insurance MEDICAID [place] MEDICARE PART A AND B [place]ICAID [place] Care Teams Drama Professor Relationship Specialty Start Date End Date Jim Dykes MD [address] [facility] [address] [place] [address] PCP - General 07/31/20
--- OUTSIDE RECORDS SUMMARY | 2025-01-18 13:08 | XMS_ITS | Clinical Summary ---
Author Organization [facility] Address [address] [place] [address] Care Team Providers Care Manager Combination Name Role Phone Avtar Castillo MD Primary Care Provider [phone] Allergies Active Allergy Reactions Criticality Noted Date Comments Gabapentin Other (see comment) 04/20/2023 violence Enoxaparin Rash Low 04/20/2023 Tape Rash Low 04/20/2023 Warfarin Rash Low 04/20/2023 Alprazolam Other (see comment) 04/20/2023 Violence Medications VENTOLIN HFA 108 (90 Base) MCG/ACT inhaler Inhale 2 puffs into the lungs 3 (three) times daily as needed for Wheezing or Shortness of breath. 3 Active DULoxetine (CYMBALTA) 60 MG capsule Take 1 capsule (60 mg total) by mouth 2 (two) times a day. 3 Active JARDIANCE 25 MG tablet Take 1 tablet (25 mg total) by mouth daily. 3 Active TRULICITY 1.5 MG/0.5ML injection Inject 1.5 mg into the skin once a week. 3 Active metFORMIN ER (GLUCOPHAGE-XR ) 500 MG 24 hr tablet Take 2 tablets (1,000 mg total) by mouth 2 (two) times a day. 3 Active lisinopril (PRINIVIL) 20 MG tablet Take 1 tablet (20 mg total) by mouth daily. 3 Active meloxicam (MOBIC) 15 MG tablet Take 1 tablet (15 mg total) by mouth daily. 3 Active hydroCHLOROthi azide (HYDRODIURIL) 25 MG tablet Take 1 tablet (25 mg total) by mouth daily. 3 Active tiZANidine (ZANAFLEX) 4 MG tablet Take 1 tablet (4 mg total) by mouth 2 (two) times a day. 3 Active pregabalin (LYRICA) 100 MG capsule Take 1 capsule (100 mg total) by mouth 2 (two) times daily. 3 Active Testosterone Cypionate Powder Inject 0.75 mLs into the muscle once a week. Unsure of concentration 3 Active atorvastatin (LIPITOR) 40 MG tablet Take 1 tablet (40 mg total) by mouth nightly at bedtime. 30 tablet 4 Active naLOXone (NARCAN) 0.4 MG/ML injection Inject 1 mL (0.4 mg total) into the vein as needed. 1 mL 4 Active Active Problems Problem Noted Date Diagnosed Date Perirectal abscess 04/22/2023 Sepsis ([facility]) 04/20/2023 Family History Relation Status Comments Father Mother Social History Tobacco Use Types Packs/Day Years Used Date Smoking Tobacco: Every Day Cigarettes 1 30 Smokeless Tobacco: Never Alcohol Use Standard Drinks/Week Comments Yes 0 (1 standard drink = 0.6 oz pur e alcohol) 6 pack a week [facility] Utilities Answer Date Recorded In the past 12 months has e [employer], gas, oil, or water [email or web address] threatened to shut off services in your home? No 04/21/2023 Humiliation, Afraid, Rape, and Kick questionnair e Answer Date Recorded Within the last year, have y ou been afraid of your partner or ex-partner? No 04/21/2023 Within the last year, have y ou been humiliated or emotionally abused in other ways by your partner or ex-partner? No Within the last year, have y ou been kicked, hit, slapped, or otherwise physically hurt by your partner or ex-partner? No 04/21/2023 Within the last year, have y ou been raped or forced to have any kind of sexual activity by your partner or ex-partner? No 04/21/2023 Overall Financial Resource Strain (CARDIA) Answe r Date Recorded How hard is it for you to pa y for the very basics like food, housing, medical care, and heating? Not hard at all 04/21/2023 [facility] - Occupational Stress Questionnaire Answer Date Recorded Do you feel stress - tense, restless, nervous, or anxious, or unable to sleep at night because your mind is troubled all the time - these days? Not at all 04/21/2023 Exercise Vital Sign Answer Date Recorde d On average, how many days pe r week do you engage in moderate to strenuous exercise (like a brisk walk)? 0 days 04/21/2023 On average, how many minutes do you engage in exercise at this level? 0 min 04/21/2023 Hunger Vital Sign Answer Date Recorded Within the past 12 months, y ou worried that your food would run out before you got the money to buy more. Never true 04/21/19 24 Within the past 12 months, t he food you bought just didn't last and you didn't have money to get more. Never true 04/21/2023 PRAPARE - Transportation Answer Date Re corded In the past 12 months, has l ack of transportation kept you from medical appointments or from getting medications? No 06/2023 In the past 12 months, has l ack of transportation kept you from meetings, work, or from getting things needed for daily living? No 04/21/2023 Housing Stability Vital Sign Answer Harshad e Recorded In the last 12 months, was t here a time when you were not able to pay the mortgage or rent on time? No 04/21/2023 In the last 12 months, how many places have you lived? 1 04/21/2023 In the last 12 months, was t here a time when you did not have a steady place to sleep or slept in a detention (including now)? No 04/21/2023 Sex and Gender Information Value Date Recorded Sex Assigned at Not on file Legal Sex Male 2:55 PM SCREWDOWN OPERATOR Gender Identity Not on file Sexual Orientation Not on file Last Filed Vital Signs Vital Sign Reading Time Taken Comments Blood Pressure 130/59 04/24/2023 7:48 AM SCREWDOWN OPERATOR Pulse 62 04/24/2023 7:48 AM SCREWDOWN OPERATOR Temperature 36.5 C (97.7 F) 04/24/2023 7:48 AM SCREWDOWN OPERATOR Respiratory Rate 17 04/24/2023 7:48 AM SCREWDOWN OPERATOR Oxygen Saturation 97% 04/24/2023 7:48 AM SCREWDOWN OPERATOR Inhaled Oxygen Concentration - - Weight 150.1 kg (330 lb 14.6 oz) 04/23/2023 4:20 AM SCREWDOWN OPERATOR Height 188 cm (6' 2) 04/20/2023 3:28 PM SCREWDOWN OPERATOR Body Mass Index 42.49 04/20/2023 3:28 PM SCREWDOWN OPERATOR Plan of Treatment Health Maintenance Due Date Last Done Comments Colorectal Cancer Screening Colonoscopy (10 Years) 1976 Annual Physical 1979 Hepatitis C 1994 DTaP, Tdap and Td Vaccines ( 1 - Tdap) 1995 Hepatitis B Vaccines (1 of 3 - 19+ 3-dose series) 1995 Pneumococcal Vaccine: Pediatrics (0 to 5 Years) and At-Risk Patients (6 to 49 Years) (2 of 2 - PPSV23) 05/03/2018 03/08/2018 COVID-19 Vaccine ( - 2023-2 5 season) 2024 Influenza Adult (#1) 2025 02/19/2022, 02/22/2018 Meningococcal B Vaccine Aged Out No l onger eligible based on patient's age to complete this topic Meningococcal Vaccine Aged Out No tova kim eligible based on patient's age to complete this topic RSV Immunizations Under 20 Months Aged Out No longer eligible b ased on patient's age to complete this topic Insurance MEDICARE [facility] Advance Directives * Full Code (Latest Code Status on File) Date Activated Date Inactivated Comments 04/20/2023 8:34 PM 04/24/2023 4:42 PM Care Teams Manager Combination Relationship Specialty Start Date End Date Avtar Castillo MD [address] [place] [address] PCP - General FAMILY PRACTICE 04/21/23
--- OUTSIDE RECORDS SUMMARY | 2025-01-18 13:08 | XMS_ITS | Clinical Summary ---
Author Organization [facility] [employer] Address [address] [facility] [place] [address] Care Team Providers Care Needle Loom Tender Name Role Phone Mann Viramontes MD Primary Care Provider Source Comments [facility]- [facility] and Associated Physician Practices is amultiple site organization consisting of ambulatory clinics and hospital sitesin [place], [place], [place] and [place]. This disclosure is being madepursuant to the Care Everywhere program and may not contain all information available regarding this patient. Last updated 18.[facility] [employer] Allergies Active Allergy Reactions Criticality Noted Date Comments Warfarin Swelling 09/08/2021 Gabapentin Other 09/08/2021 voilent Lovenox Bleeding 09/08/2021 Bleeding thru legs Prednisone Other 09/08/2021 Hot feeling/ flushed Alprazolam Vomiting 09/08/2021 Medications * Be aware that medications may not be up to date on this document. Alwaysverify current medications with the patient. DULoxetine (CYMBALTA) 60 MG capsule Take 60 mg by mouth 2 times daily Active glimepiride (AMARYL) 4 MG tablet Take 4 mg by mouth 2 times daily 2 Active metFORMIN (GLUCOPHAGE) 500 MG tablet Take 1,000 mg by mouth 2 times daily with morning and evening meal Active atorvastatin (LIPITOR) 20 MG tablet Take 20 mg by mouth once daily 2 Active hydroCHLOROthi azide (HYDRODIURIL) 25 MG tablet Take 25 mg by mouth once daily Active lisinopril (PRINIVIL; ZESTRIL) 20 MG tablet Take 20 mg by mouth once daily Active meloxicam (MOBIC) 15 MG tablet Take 15 mg by mouth once daily Active empagliflozin (JARDIANCE) 25 MG tablet Take 25 mg by mouth once daily Active pregabalin (LYRICA) 100 MG capsule Take 100 mg by mouth 2 times daily Active omeprazole (PRILOSEC) 20 MG capsule Take 20 mg by mouth daily before breakfast Active loratadine (CLARITIN) 10 MG tablet Take 10 mg by mouth once daily Active aspirin (ASPIRIN) 81 MG chew tablet Take 81 mg by mouth once daily Active rivaroxaban (XARELTO) 10 MG tabletIndicati ons:Arthritis of left hip Take 1 (one) tablet by mouth once daily 35 tablet 2 Active oxyCODONE-acet aminophen (PERCOCET) 10-325 MG tabletIndicati ons:Arthritis of left hip Take 1 (one) tablet by mouth every 4 hours as needed 20 tablet 2 Active acetaminophen (TYLENOL) 325 MG tabletIndicati ons:Arthritis of left hip Take 2 (two) tablets by mouth every 4 hours as needed for Fever (For temperature GREATER than 101 ) Maximum allowable Acetaminophen amount = 4 Grams (4000 mg) / 24 hours. 2 Active Active Problems Problem Noted Date Diagnosed Date Arthritis of left hip 09/30/2021 Family History Medical History Relation Name Comments Hypertension Father Cancer Mother Hypertension Mother Relation Name Status Comments Father Mother Social History Tobacco Use Types Packs/Day Years Used Date Smoking Tobacco: Some Days Cigarettes Smokeless Tobacco: Current Chew Tobacco Cessation:Ready to Q uit: No Comments:30 years smoked 1 2020 smokes an occasional cigarette every now and then Alcohol Use Standard Drinks/Week Comments Yes 7 (1 standard drink = 0.6 oz pur e alcohol) Hunger Vital Sign Answer Date Recorded Within the past 12 months, y ou worried that your food would run out before you got the money to buy more. Never true 10/01/19 22 Within the past 12 months, t he food you bought just didn't last and you didn't have money to get more. Never true 09/30/2021 Sex and Gender Information Value Date Recorded Sex Assigned at Not on file Legal Sex Male 2:53 PM CDT Gender Identity Not on file Sexual Orientation Not on file Last Filed Vital Signs Vital Sign Reading Time Taken Comments Blood Pressure 141/93 10/02/2021 7:40 AM CDT Pulse 95 10/02/2021 7:40 AM CDT Temperature 36.8 C (98.3 F) 10/02/2021 7:40 AM CDT Respiratory Rate 16 10/02/2021 7:40 AM CDT Oxygen Saturation 99% 10/02/2021 7:40 AM CDT Inhaled Oxygen Concentration 40% 09/30/2021 1 1:26 AM CDT Weight 174.2 kg (384 lb) 09/30/2021 6:50 AM CDT Height 188 cm (6' 2) 09/30/2021 6:50 AM CDT Body Mass Index 49.3 09/30/2021 6:50 AM CDT Plan of Treatment Health Maintenance Due Date Last Done Comments COLOGUARD (AGES 45-75) - COL ON CA SCREENING 1976 COLON MONITORING 1976 COLONOSCOPY - COLON CA SCREENING 1976 CT COLONOGRAPHY - COLON CA SCREENING 1976 Colorectal Cancer Screening 1976 FIT - COLON CA SCREENING 1976 FLEX SIG - COLON CA SCREENING 1976 HIV SCREENING 1991 HEPATITIS C SCREENING 04/11/1994 DTAP/TDAP/TD VACCINES (1 - Tdap) 1995 HEPATITIS B VACCINE (1 of 3 - 19+ 3-dose series) 1995 DEPRESSION SCREENING 04/19/2024 COVID-19 VACCINE (1 - 2023-2 5 season) 2024 INFLUENZA VACCINE (#1) 2024 02/22/2018 ZOSTER VACCINE (1 of 2) 2026 HIB VACCINE Aged Out No longer eligi ble based on patient's age to complete this topic HPV VACCINE Aged Out No longer eligi ble based on patient's age to complete this topic MENINGOCOCCAL (Group B) VACC INE SHARED DECISION-MAKING Aged Out No longer eligibl e based on patient's age to complete this topic MENINGOCOCCAL GROUPS A/C/Y/W VACCINE Aged Out No longer eligible b ased on patient's age to complete this topic PNEUMOCOCCAL VACCINE Aged Out No long er eligible based on patient's age to complete this topic Medical Devices Implanted Type Area Pickle Solution Maker Device Identifier Shelf Expiration Date Model / Serial / Lot Shell Actb 62mm Hip 5 Screw Hl Clstr Implanted:Qty: 1 on 09/30/2021 by Adalid Thompson MD at [facility] Left: Hip [employer] 01/29/2026 702-04- 62G / / [id number] Liner Actb Mdm G 48mm Cocr Hip 28mm Fem Implanted:Qty: 1 on 09/30/2021 by Adalid Thompson MD at [facility] Left: Hip [employer] 12/17/2025 626-00- 48G / / [id number] Stem Fem 111mm Hip 132d 6 41mm Std Ofst Implanted:Qty: 1 on 09/30/2021 by Adalid Thompson MD at [facility] Left: Hip [employer] 06/29/2026 6720-06 35 / / [id number] Ins Actb 54mm Hip Rstr X3 Adm Mdm Mbl Br Implanted:Qty: 1 on 09/30/2021 by Adalid Thompson MD at [facility] Left: Hip [employer] 09/07/2025 1236-2- 854 / / [id number] [employer] Delta Ceramic V40 Femoral Head Implanted:Qty: 1 on 09/30/2021 by Adalid Thompson MD at [facility] Left: Hip [employer] 06/18/2026 6570-0-32 8 / / [id number] Insurance MEDICARE MEDICAID [facility] Advance Directives * Full Code (Latest Code Status on File) Date Activated Date Inactivated Comments 09/30/2021 12:59 PM 10/02/2021 12:23 PM Care Teams Needle Loom Tender Relationship Specialty Start Date End Date Mann Viramontes MD [address] [place] [address] PCP - General Family Medicine 09/08/21
--- OUTSIDE RECORDS SUMMARY | 2025-01-18 13:08 | XMS_ITS | Clinical Summary ---
Author Organization [facility] Address [address] [place] [id number] Care Team Providers Care Child Support Case Officer Name Role Phone Mann Viramontes MD Primary Care Provider [phone] Allergies Active Allergy Reactions Criticality Noted Date Comments Baclofen Other (See comments) Low 05/26/2021 Rectal bleeding Enoxaparin Other (See comments) Low 05/26/2021 Petichiae Gabapentin Agitation Low 05/26/2021 Prednisone Flushing (skin) Low 05/26/2021 Warfarin Other (See comments) Low 05/26/2021 patichiea Alprazolam Agitation Low 05/26/2021 Social History Tobacco Use Types Packs/Day Years Used Date Smoking Tobacco: Never Assessed Personal Safety Answer Date Recorded Getting School Help Needed Not on file 06/19 Sex and Gender Information Value Date Recorded Sex Assigned at Not on file Legal Sex Male 7:07 PM STALLION KEEPER Gender Identity Not on file Sexual Orientation Not on file Last Filed Vital Signs Vital Sign Reading Time Taken Comments Blood Pressure 128/78 05/26/2021 7:29 PM STALLION KEEPER Pulse 108 05/26/2021 7:29 PM STALLION KEEPER Temperature 37.2 C (99 F) 05/26/2021 7:29 PM STALLION KEEPER Respiratory Rate 16 05/26/2021 7:29 PM STALLION KEEPER Oxygen Saturation 94% 05/26/2021 7:29 PM STALLION KEEPER Inhaled Oxygen Concentration - - Weight 176.8 kg (389 lb 12.4 oz) 05/26/2021 7:29 PM STALLION KEEPER Height 188 cm (6' 2) 05/26/2021 7:29 PM STALLION KEEPER Body Mass Index 50.04 05/26/2021 7:29 PM STALLION KEEPER Plan of Treatment Not on file Insurance [place]ARE [place] [facility] [place] [place] [facility] Care Teams Child Support Case Officer Relationship Specialty Start Date End Date Mann Viramontes MD [address] [place] [address] PCP - General Family Medicine 02/19/22
--- NOTE | 2025-01-18 13:11 | ECG_ITS ---
Test Date: 2025-01-18 13:29:02 Measurements Intervals [place] Rate: 76 P: -9 CA: 180 QRS: 56 QRSD: 97 T: 32 QT: 349 QTc: 395 Interpretive Statements SINUS RHYTHM INCOMPLETE RIGHT BUNDLE BRANCH BLOCK BASELINE ARTIFACT- III BORDERLINE ECG No previous ECG available for comparison Electronically Signed On 01-18-2025 13:39:14 CDT by Kevon Solares D.O.
== END 2025-01-18 13:01 | disposition home or self-care (01) ==
LOC: ANHLAB 13:04 → ANHCARD 13:06
PROVIDERS: PCP Family Medicine; Visit Provider Nurse Practitioner
DX: R94.31 Abnormal electrocardiogram [ECG] [EKG] (principal); M25.552 Pain in left hip; I10 Essential (primary) hypertension
CPT/HCPCS: 93005

== ENCOUNTER 2025-02-25 09:52 | Observation (INO) | payer MEDICARE, SELFPAY ==
--- OUTSIDE RECORDS SUMMARY | 2025-02-23 23:59 | XMS_ITS | Continuity of Care Document ---
Author Organization [facility] Address [address] [place] [id number] Care Team Providers Care Financing Analyst Name Role Phone DL TAYLOR Primary Care Physician Encounter [facility] Financial Number [id number] Date(s): 02/23/25 - 02/23/[address] [id number] Discharge Disposition: Home or Self Care Attending Physician: Lele Ball MD Admitting Physician: Lele Ball MD Referring Physician: Lele Ball MD Encounter Type: Outpatient Allergies, Adverse Reactions, Alerts Substance Criticality Severity Reaction Reaction Severity Status baclofen Active enoxaparin Active gabapentin Active Xanax Active Coumadin Active predniSONE Active Adhesive Tape Active Assessment and Plan Future Appointments Appointment Date:08/21/2025 03:30:00 PM Scheduled Provider:Lele Ball MD Location:[facility] Appointment Type:[facility] Established Patient Immunizations Given and Recorded Vaccine Date Status Refusal Reason influenza virus vaccine, inactivated 02/19/22 Give n Medications atorvastatin 20 mg oral tablet TAKE 1 TABLET BY MOUTH EVERY DAY Start Date: 08/21/21 Status: Ordered Repeat number: 1 DULoxetine 60 mg oral delayed release capsule 60 mg, 1 capsule(s), Oral, bid, 90 capsule(s), Capsule(s), 0 Start Date: 08/21/21 Status: Ordered Quantity: 90.0 Unit: Repeat number: 1 folic acid 1 mg oral tablet 1 mg, 1 tablet(s), Oral, daily, 30 tablet(s), Tablet(s), 0, 0, Route to Pharmacy Electronically, [id number], [id number], 188, cm, 02/18/2022 0201, Height, 170, kg, 02/18/2022 1254, Weight Start Date: 02/19/22 Status: Ordered Quantity: 30.0 Unit: Repeat number: 1 glimepiride 4 mg oral tablet TAKE 1 TABLET BY MOUTH EVERY DAY Start Date: 08/21/21 Status: Ordered Repeat number: 1 Jardiance 25 mg oral tablet 25 mg, 1 tablet(s), Oral, daily, 90 tablet(s), Tablet(s), 0 Start Date: 08/21/21 Status: Ordered Quantity: 90.0 Unit: Repeat number: 1 Lidoderm 5% topical film 1 patch(es), TransDermal, daily, Patch, PRN, 30 patch(es), 0, 0, pain, Place on right upper quadrant of abdomen; remove patches after 12 hours Start Date: 08/21/21 Stop Date: 09/20/21 Status: Ordered Quantity: 30.0 Unit: Repeat number: 1 lisinopril 20 mg oral tablet 20 mg, 1 tablet(s), Oral, daily, 90 tablet(s), Tablet(s), 0 Start Date: 08/21/21 Status: Ordered Quantity: 90.0 Unit: Repeat number: 1 loratadine 10 mg oral tablet 10 mg, 1 tablet(s), Oral, daily, 30 tablet(s), Tablet(s), 0 Start Date: 09/10/21 Status: Ordered Quantity: 30.0 Unit: Repeat number: 1 meloxicam 15 mg oral tablet Oral, daily, 0 Start Date: 08/21/21 Status: Ordered Repeat number: 1 MetFORMIN (Eqv-Glucophage XR) 500 mg oral tablet, extended release TAKE 2 TABLETS BY MOUTH TWICE DAILY Start Date: 08/21/21 Status: Ordered Repeat number: 1 Mounjaro 0 Start Date: 02/19/25 Status: Ordered Repeat number: 1 omeprazole 20 mg oral delayed release capsule 20 mg, 1 capsule(s), Oral, daily before breakfast, 30 capsule(s), Capsule(s), 0 Start Date: 09/10/21 Status: Ordered Quantity: 30.0 Unit: Repeat number: 1 oxyCODONE 5 mg oral tablet 5 mg, 1 tablet(s), Oral, o9nceag, PRN, 60 tablet(s), Tablet(s), 0, 0, pain Start Date: 02/19/25 Status: Ordered Quantity: 60.0 Unit: Repeat number: 1 pregabalin 100 mg oral capsule 100 mg, 1 capsule(s), bid, 0 Start Date: 08/21/21 Status: Ordered Repeat number: 1 testosterone 0 Start Date: 02/19/25 Status: Ordered Repeat number: 1 tiZANidine 4 mg oral tablet 8 mg, 2 tablet(s), Oral, bid, 0 Start Date: 09/10/21 Status: Ordered Repeat number: 1 Problem List Condition Confirmation Course Effective Dates Status H ealth Status Informant Asthma Confirmed Active Chest pain Confirmed Active Polysubstance dependence, non-opioid, in remission Confirmed Active Depression Confirmed Active GERD (gastroesophageal reflux disease) Confirmed Active History of DVT of lower extremity Confirmed Active History of syncope Confirmed Active HLD (hyperlipidemia) Confirmed Active HTN (hypertension) Confirmed Active Marijuana use Confirmed Active Obesity Confirmed Active Obstructive sleep apnea Confirmed Active HARJINDER (obstructive sleep apnea) Confirmed Active Preoperative cardiovascular examination Confirmed Active Hospital discharge follow-up Confirmed Active Tobacco use Confirmed Active Type 2 diabetes mellitus Confirmed Active Procedures Procedure Date Related Diagnosis Body Site Status Appendectomy Completed Discectomy Completed Hip replacement Completed Laminectomy Completed Results Radiology Reports * Exam Date Time Procedure Performing Provider Status 02/23/25 3:[address] NON-CARDIAC CTA C ORONARY FINDINGS Auth (Verified) Notes: (CT NON-CARDIAC CTA CORONARY FINDINGS) Reason For Exam: chest pain, CT NON-CARDIAC CTA CORONARY FINDINGS EXAM: CT CARDIAC CORONARY CT ANGIOGRAPHY- RADIOLOGY INTERPRETATION OF NON-CARDIAC PORTION HISTORY: Chest pain. TECHNIQUE / FINDINGS: Limited postcontrast axial CT imaging was performed through the chest for the purposes of evaluation of the coronary arteries. This is the radiology dictation non-cardiac portion of the exam. The cardiac CT will be dictated by cardiology separately. In the limited views of the chest, there is no acute cardiopulmonary process. No suspicious pulmonary nodules or focal infiltrates are identified. There is no evidence of pleural or pericardial effusion. There is mild right base atelectasis. Healed rib fracture seen on the right as well. Please refer to the cardiology report for full details of the coronary CTA. The radiation exposure as measured by the dose length product (DLP) is 2193 mGy-cm. CT dose lowering technique was utilized. (CPT:04549) . Dictating Provider: Darcie Buckley MD Releasing Physician: Darcie Buckley MD Signature Electronically Authorized Authorized Date/Time: 23-FEB-2025 04:14 pm Vital Signs Most recent to oldest [Reference Range]: 1 2 3 Peripheral Pulse Rate [60-100 bpm] 70 bpm (02/23/25 2:10 PM) 68 bpm (02/23/25 2:00 PM) 75 bpm (02/23/25 1:55 PM) Respiratory Rate [14-22 br/min] 16 br/min (02/23/25 2:10 PM) 14 br/min (02/23/25 2:00 PM) 14 br/min (02/23/25 1:55 PM) Blood Pressure [90-139/60-90 mm Hg] 121/97mm Hg (02/23/25 2:10 PM) 120/73mm Hg (02/23/25 2:00 PM) 131/87mm Hg (02/23/25 1:55 PM) Social History Social History Type Response Alcohol Current some day alc ohol user Employment/School Disabled Home/Environment Lives with Children, Spouse. Substance Abuse Current every day dr ug user, Marijuana Smoking Status Current some day smo ker;Smokeless tobacco user within last 30 days; Tobacco Cessation Counseling Requested No; Type: Cigarettes; Type: Oral entered on: 07/16/23 Sex Sex Representation Male (finding) Note * Rachel Cordova Patient Security Operations Center Analyst: PERFORM Event Display: Authorization to Treat Authored Date: [id number] * Rachel Cordova Patient Security Operations Center Analyst: PERFORM Event Display: Authorization to Treat Authored Date: [id number] * Trev Al[facility] Stenographic Court Reporter: PERFORM Event Display: ROI_Correspondence Authored Date: [id number] Patient Care team information Care Team Personnel Name: DL TAYLOR KASSANDRA [facility] Position: AGUSTÍN FAX ONLY - MD NOT ON STAFF Member Role: Primary Care Physician Address: [address] [place] [phone] Telecom: Name: Lele Ball MD Position: Physician - Cardiology Med Service: Taxation Accountant Financing Analyst Role: Referring Physician Address: [facility] [address] [place] [address] [place] Telecom: Care Team Related Persons Name: JULEE BRENNER Insurance Providers Guarantor name: BENJY BRENNER Health Plan Information #: 1 Payer: Medicare Payer Identifier: [id number] Member Number: [id number] Group Number: [id number] Subscriber Identifier: [id number] Relationship to Subscriber: self Coverage Type: MEDICARE Coverage Verification Date: NA Telecom: NA Address: [facility] [address] [place], [place] [id number]
[2025-02-25] VITALS (18 sets, daily range): BP systolic 117–150; BP diastolic 73–100; PULSE 86–111; RESP 12–24; TEMP 35.9–37.6; O2SAT 94–100; BMI 39.5
--- NOTE | ~2025-02-25 | US_ITS ---
EXAMINATION: US venous doppler [facility] DATE: 02/26/2025 11:18 INDICATION: Pain and swelling TECHNIQUE: Grayscale ultrasound images without and with compression and Doppler ultrasound images of the bilateral lower extremity veins were obtained. COMPARISON: None. FINDINGS: The visualized portions of right common femoral vein, profunda (deep) femoral vein, femoral vein, popliteal vein, peroneal veins, posterior tibial veins, and greater saphenous vein outflow are patent. The visualized portions of left common femoral vein, profunda femoral vein, femoral vein, popliteal vein, peroneal veins, posterior tibial veins, and greater saphenous vein outflow are patent. The soleus veins are not seen on either left or right. Lesser saphenous veins are not seen. Greater saphenous veins are not seen. IMPRESSION: 1. No deep venous thrombosis identified. 2. Limited visualization of several of the venous structures as above. Reviewed, dictated and finalized at location A. 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
--- NOTE | ~2025-02-25 | XR_ITS ---
Examination: XR chest 1V portable Clinical History: chest pain Comparison: 04/23/2021 Technique: Portable AP Findings: Heart size normal. Right midlung lateral opacity not excluded. No acute bony abnormality. IMPRESSION: 1. Recommend CT chest. Right midlung lateral opacity not excluded. 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 OR LVN
--- NOTE | ~2025-02-25 | CT_ITS ---
CTA CHEST CLINICAL HISTORY: dyspnea . COMPARISON: Chest x-ray today TECHNIQUE: Helical CTA performed from thoracic inlet to upper abdomen IV contrast information not listed in PACS Coronal, sagittal reformats. Multiplanar MIPS CT images acquired with automatic exposure control for dose reduction DLP: 1158 mGy-cm FINDINGS: Significant respiratory motion artifact could obscure PE. Pulmonary arteries: No PE identified. Thoracic Aorta: No dissection or aneurysm. Heart/pericardium: Unremarkable. RV/LV ratio: Normal. Lungs/Pleura: Clear. Tracheobronchial tree: Patent. Nodes: No enlarged nodes. Bones: No acute bony abnormality. 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 Soft tissues: Unremarkable. Visualized upper abdomen: Hepatomegaly, with steatosis. IMPRESSION: 1. No PE identified, nor other acute cardiopulmonary findings. 2. X-ray finding right lung due to chronic rib fracture. 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
--- NOTE | 2025-02-25 09:53 | ECG_ITS ---
Test Date: 2025-02-25 09:59:14 Measurements Intervals [place] Rate: 100 P: 44 IN: 164 QRS: 43 QRSD: 104 T: 46 QT: 327 QTc: 423 Interpretive Statements SINUS TACHYCARDIA POSSIBLE LEFT ATRIAL ENLARGEMENT [-0.1mV P-WAVE IN V1/V2] INCOMPLETE RIGHT BUNDLE BRANCH BLOCK [90+ ms QRS DURATION, TERMINAL R IN V1/V2, 40+ ms S IN I/aVL/V4/V5/V6] BASELINE ARTIFACT LIMITS INTERPRETATION ABNORMAL ECG Compared to ECG 01/18/2025 13:29:02 Sinus rhythm no longer present Electronically Signed On 02-25-2025 13:08:31 DERRICK BOAT LEVERMAN by Adalid Schwab M.D.
--- OUTSIDE RECORDS SUMMARY | 2025-02-25 09:54 | XMS_ITS | Encounter Summary ---
Author Organization [employer] Address [address] [place] [address] Care Team Providers Care Frontend Engineer Name Role Phone Jim Dykes MD Primary Care Provider [phone] Encounter Details Date Type Department Care Team (Latest Contact Info) Description 10/03/1998 Outpatient Historical [facility] Paul Blum M [address] [place] [address] Other specified aftercare following surgery (Primary Dx) Social History Tobacco Use Types Packs/Day Years Used Date Smoking Tobacco: Never Assessed Sex and Gender Information Value Date Recorded Sex Assigned at Not on file 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
--- OUTSIDE RECORDS SUMMARY | 2025-02-25 09:54 | XMS_ITS | Encounter Summary ---
Author Organization [facility] Address [address] [place] [address] Care Team Providers Care Coagulation Operator Name Role Phone Jim Dykes MD Primary Care Provider [phone] Encounter Details Date Type Department Care Team (Latest Contact Info) Description 11/14/1998 Outpatient Historical HIS [facility] Paul Blum M [address] [place] [address] Other specified aftercare following surgery (Primary Dx) Social History Tobacco Use Types Packs/Day Years Used Date Smoking Tobacco: Never Assessed Sex and Gender Information Value Date Recorded Sex Assigned at Not on file Legal Sex Male 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
--- OUTSIDE RECORDS SUMMARY | 2025-02-25 09:54 | XMS_ITS | Encounter Summary ---
Author Organization [facility] Address [address] [place] [address] Care Team Providers Care Thinner Sprayer Name Role Phone Jim Dykes MD Primary Care Provider [phone] Reason for Referral * Radiology Services (Routine) - Closed Specialty Diagnoses / Procedures Referred By Contac t Referred To Contact Diagnoses Pain Procedures US GUIDE NEEDLE PLACEMENT Abel Steel MD Phone: tel: fax: Referral ID Status Reason Start Date Expiration Date Visits Re quested Visits Authorized [id number] Closed 12/22/2018 01/22/2020 1 1 Encounter Details Date Type Department Care Team (Late st Contact Info) Description 12/22/2018 Ancillary Orders [facility] - [facility] [address] [place] [address] Abel Steel MD [address] [place] [phone] Pain Social History Tobacco Use Types Packs/Day Years Used Date Smoking Tobacco: Former Cigarettes 0.5 27 0 12/19/1991 - 12/18/2018 Smokeless Tobacco: Current Snuff, Chew Alcohol Use Standard Drinks/Week Comments Yes 0 (1 standard drink = 0.6 oz pur e alcohol) seldom Sex and Gender Information Value Date Recorded Sex Assigned at Not on file Legal Sex Male 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 The area was then cleaned with Betadine in a sterile fashion and a 3.5 inch, 20-gauge needle was then inserted and 5 cc of lidocaine was injected as the needle was advanced under ultrasound guidance to the femoral neck/head. The syringe was then switched out and 0.5 mL of Depo-Medrol 80 mg and 6 cc of 1% lidocaine was injected into the space with good distention of the joint capsule visualized. The needle was withdrawn and an adhesive bandage was placed. The patient tolerated the procedure well and hemostasis was achieved. us Abel Steel MD ORDERABLES Final Result documented in this encounter Visit Diagnoses Diagnosis Pain Generalized pain Pain Generalized pain documented in this encounter Care Teams Thinner Sprayer Relationship Specialty Start Date End Date Jim Dykes MD [address] [place] [id number] PCP - General Family Practice 04/14/18 documented as of this encounter
--- OUTSIDE RECORDS SUMMARY | 2025-02-25 09:54 | XMS_ITS | Encounter Summary ---
Author Organization [facility] Address [address] [place] [address] Care Team Providers Care Slip Cover Seamstress Name Role Phone Jim Dykes MD Primary Care Provider [phone] Encounter Details Date Type Department Care Team (Latest Contact Info) Description 01/23/2000 Outpatient Historical [facility] Psychiatry- [place] [address] [facility] [address] [place] [address] Robert Eastman Jr., MD [address] [place] [address] Major depressive disorder, single episode, mild (Primary Dx) Social History Tobacco Use Types Packs/Day Years Used Date Smoking Tobacco: Never Assessed Sex and Gender Information Value Date Recorded Sex Assigned at Not on file 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
--- OUTSIDE RECORDS SUMMARY | 2025-02-25 09:54 | XMS_ITS | Encounter Summary ---
Author Organization [facility] Address [address] [place] [address] Care Team Providers Care Rollway Man Name Role Phone Jim Dykes MD Primary Care Provider [phone] Encounter Details Date Type Department Care Team (Latest Contact Info) Description 04/03/1999 Outpatient Historical [facility] Medicine-[facility] [address] [place] [address] Abel Dye MD [address] [place] [address] Acute upper respiratory infections of unspecified site (Primary Dx) Social History Tobacco Use Types Packs/Day Years Used Date Smoking Tobacco: Never Assessed Sex and Gender Information Value Date Recorded Sex Assigned at Not on file 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
--- OUTSIDE RECORDS SUMMARY | 2025-02-25 09:54 | XMS_ITS | Encounter Summary ---
Author Organization [facility] Address [address] [place] [address] Care Team Providers Care Assistant Infant Toddler Teacher Name Role Phone Jim Dykes MD Primary Care Provider [phone] Encounter Details Date Type Department Care Team (Latest Contact Info) Description 06/04/1999 Outpatient Historical [facility] Medicine-[facility] [address] [place] [address] Abel Dye MD [address] [place] [address] Unspecified acute reaction to stress (Primary Dx) Social History Tobacco Use Types Packs/Day Years Used Date Smoking Tobacco: Never Assessed Sex and Gender Information Value Date Recorded Sex Assigned at Not on file 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 [place] [phone] PCP - General Family Practice 04/14/18 documented as of this encounter
--- OUTSIDE RECORDS SUMMARY | 2025-02-25 09:54 | XMS_ITS | Encounter Summary ---
Author Organization [facility] Address [address] [place] [address] Care Team Providers Care Casting Trucker Name Role Phone Jim Dykes MD Primary Care Provider [phone] Encounter Details Date Type Department Care Team (Latest Contact Info) Description 12/08/[address] 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 [facility] [place] [facility] [place] [address] PCP - General Family Practice 04/14/18 documented as of this encounter
--- OUTSIDE RECORDS SUMMARY | 2025-02-25 09:54 | XMS_ITS | Encounter Summary ---
Author Organization [facility] Address [address] [place] [address] Care Team Providers Care Older Adult Social Work Specialist Name Role Phone Jim Dykes MD Primary Care Provider [phone] Encounter Details Date Type Department Care Team (Latest Contact Info) Description 07/10/1999 Outpatient Historical [facility] Medicine-[facility] [address] [place] [address] Abel Dye MD [address] [place] [address] Anxiety state, unspecified (Primary Dx) Social History Tobacco Use Types Packs/Day Years Used Date Smoking Tobacco: Never Assessed Sex and Gender Information Value Date Recorded Sex Assigned at Not on file 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
--- OUTSIDE RECORDS SUMMARY | 2025-02-25 09:54 | XMS_ITS | Encounter Summary ---
Author Organization [facility] Address [address] [place] [address] Care Team Providers Care Senior Software Development Manager Name Role Phone Jim Dykes MD Primary Care Provider [phone] Encounter Details Date Type Department Care Team (Latest Contact Info) Description 07/28/1999 Outpatient Historical [facility] Imaging Services-Alejandra [place] [address] [place] [address] Varinder Cuadra, DO [address] [place] [phone] Pain in limb (Primary Dx); Other and unspecified accidental fall Social History Tobacco Use Types Packs/Day Years Used Date Smoking Tobacco: Never Assessed Sex and Gender Information Value Date Recorded Sex Assigned at Not on file 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
--- OUTSIDE RECORDS SUMMARY | 2025-02-25 09:54 | XMS_ITS | Encounter Summary ---
Author Organization [facility] Address [address] [place] [address] Care Team Providers Care Tool Machine Setup Operator Name Role Phone iJm Dykes MD Primary Care Provider [phone] Encounter Details Date Type Department Care Team (Late st Contact Info) Description 09/24/1997 Outpatient [facility] [address] [place] [address] Social History Tobacco Use Types Packs/Day Years Used Date Smoking Tobacco: Never Assessed Sex and Gender Information Value Date Recorded Sex Assigned at Not on file 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
--- OUTSIDE RECORDS SUMMARY | 2025-02-25 09:54 | XMS_ITS | Encounter Summary ---
Author Organization [facility] Address [address] [place] [address] Care Team Providers Care Patient Safety Coordinator Name Role Phone Jim Dykes MD Primary Care Provider [phone] Encounter Details Date Type Department Care Team (Latest Contact Info) Description 05/05/1999 Outpatient [facility] Dermatology- [facility] [place] [address] [place] [address] Jesse Barnes MD NO ADDRESS ON FILE Condyloma acuminatum (Primary Dx) Social History Tobacco Use Types Packs/Day Years Used Date Smoking Tobacco: Never Assessed Sex and Gender Information Value Date Recorded Sex Assigned at Not on file Legal Sex Male 5:[address] Gender Identity Not on file Sexual Orientation Not on file documented as of this encounter Plan of Treatment Not on file documented as of this encounter Visit Diagnoses Diagnosis Condyloma acuminatum- Primary documented in this encounter Care Teams Patient Safety Coordinator Relationship Specialty Start Date End Date Jim Dykes MD [address] [facility] & [place] [address] PCP - General Family Practice 04/14/18 documented as of this encounter
--- OUTSIDE RECORDS SUMMARY | 2025-02-25 09:54 | XMS_ITS | Encounter Summary ---
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
--- OUTSIDE RECORDS SUMMARY | 2025-02-25 09:54 | XMS_ITS | Encounter Summary ---
Author Organization [facility] Address [address] [place] [address] Care Team Providers Care Deputy Director Of Finance Name Role Phone Jim Dykes MD Primary Care Provider [phone] Encounter Details Date Type Department Care Team (Late st Contact Info) Description 12/10/1998 Outpatient [facility] [address] [place] [address] Social History Tobacco Use Types Packs/Day Years Used Date Smoking Tobacco: Never Assessed Sex and Gender Information Value Date Recorded Sex Assigned at Not on file 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
--- OUTSIDE RECORDS SUMMARY | 2025-02-25 09:54 | XMS_ITS | Encounter Summary ---
Author Organization [facility] Address [address] [place] [address] Care Team Providers Care Amusement Machine Mechanic Name Role Phone Jim Dykes MD Primary Care Provider [phone] Encounter Details Date Type Department Care Team (Late st Contact Info) Description 12/12/[address] [facility] Orthopedics - Orthopedic [facility] [address] [place] [address] [facility], External Provider [address] [place], [place] [id number] Pain Social History Tobacco Use Types Packs/Day Years Used Date Smoking Tobacco: Every Day Cigarettes 0.5 27 Smokeless Tobacco: Current Snuff, Chew Alcohol Use Standard Drinks/Week Comments Yes 14 (1 standard drink = 0.6 oz pu re alcohol) 2 beers nightly Sex and Gender Information Value Date Recorded Sex Assigned at Not on file Legal Sex Male 5:24 AM ALLERGY AND IMMUNOLOGY SPECIALIST Gender Identity Not on file Sexual Orientation Not on file documented as of this encounter Plan of Treatment Not on file documented as of this encounter Results * MRI PRIOR STUDY (01/09/2015 12:00 PM CDT) Narrative 12/12/2018 3:39 PM CDT This exam was auto finalized to allow images to be scanned to PACS. us External Provider [facility] MR ORDERABLES Final Resu lt * XR PRIOR STUDY (12/26/2014 12:00 PM CDT) Narrative 12/12/2018 3:39 PM CDT This exam was auto finalized to allow images to be scanned to PACS. us External Provider [facility] DIAGNOSTIC IMAGING ORDERAB LES Final Result * MRI PRIOR STUDY (05/02/2014 12:00 PM ALLERGY AND IMMUNOLOGY SPECIALIST) Narrative 12/12/2018 3:40 PM CDT This exam was auto finalized to allow images to be scanned to PACS. us External Provider [facility] MR ORDERABLES Final Resu lt * XR PRIOR STUDY (03/25/2014 12:00 PM ALLERGY AND IMMUNOLOGY SPECIALIST) Narrative 12/12/2018 3:40 PM CDT This exam was auto finalized to allow images to be scanned to PACS. us External Provider [facility] DIAGNOSTIC IMAGING ORDERAB LES Final Result documented in this encounter Visit Diagnoses Diagnosis Pain Generalized pain Pain Generalized pain Pain Generalized pain Pain Generalized pain Pain Generalized pain documented in this encounter Care Teams Amusement Machine Mechanic Relationship Specialty Start Date End Date Jim Dykes MD [address] [place] [address] PCP - General Family Practice 04/14/18 documented as of this encounter
--- OUTSIDE RECORDS SUMMARY | 2025-02-25 09:54 | XMS_ITS | Encounter Summary ---
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
--- OUTSIDE RECORDS SUMMARY | 2025-02-25 09:54 | XMS_ITS | Encounter Summary ---
Author Organization [facility] Address [address] [place] [address] Care Team Providers Care Welding Equipment Repairer Name Role Phone Jim Dykes MD Primary Care Provider [phone] Encounter Details Date Type Department Care Team (Latest Contact Info) Description 11/07/1998 Outpatient Historical [facility] Paul Blum M [address] [place] [address] Other specified aftercare following surgery (Primary Dx) Social History Tobacco Use Types Packs/Day Years Used Date Smoking Tobacco: Never Assessed Sex and Gender Information Value Date Recorded Sex Assigned at Not on file 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 [facility] [place] [facility] [place] [address] PCP - General Family Practice 04/14/18 documented as of this encounter
--- OUTSIDE RECORDS SUMMARY | 2025-02-25 09:54 | XMS_ITS | Encounter Summary ---
Author Organization [facility] Address [address] [place] [address] Care Team Providers Care Protective Signal Operations Supervisor Name Role Phone Jim Dykes MD Primary Care Provider [phone] Encounter Details Date Type Department Care Team (Late st Contact Info) Description 09/17/1997 Outpatient 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
--- OUTSIDE RECORDS SUMMARY | 2025-02-25 09:54 | XMS_ITS | Encounter Summary ---
Author Organization [facility] Address [address] [place] [address] Care Team Providers Care Manager Advanced Name Role Phone Jim Dykes MD Primary Care Provider [phone] Encounter Details Date Type Department Care Team (Latest Contact Info) Description 09/19/1998 Outpatient Historical [facility] Paul Blum M [address] [place] [address] Other specified aftercare following surgery (Primary Dx) Social History Tobacco Use Types Packs/Day Years Used Date Smoking Tobacco: Never Assessed Sex and Gender Information Value Date Recorded Sex Assigned at Not on file 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
--- OUTSIDE RECORDS SUMMARY | 2025-02-25 09:54 | XMS_ITS | Encounter Summary ---
Author Organization [facility] Address [address] [place] [address] Care Team Providers Care Catalytic Case Operator Name Role Phone Jim Dykes MD Primary Care Provider [phone] Encounter Details Date Type Department Care Team (Latest Contact Info) Description 02/27/1999 Outpatient [facility] Dermatology- [facility] [address] [place] [address] Jesse Barnes MD NO ADDRESS ON FILE Condyloma acuminatum (Primary Dx) Social History Tobacco Use Types Packs/Day Years Used Date Smoking Tobacco: Never Assessed Sex and Gender Information Value Date Recorded Sex Assigned at Not on file 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 [place] & [place] [address] PCP - General Family Practice 04/14/18 documented as of this encounter
--- OUTSIDE RECORDS SUMMARY | 2025-02-25 09:54 | XMS_ITS | Encounter Summary ---
Author Organization [facility] Address [address] [place] [address] Care Team Providers Care Broadcast Traffic Coordinator Name Role Phone Jim Dykes MD Primary Care Provider [phone] Encounter Details Date Type Department Care Team (Latest Contact Info) Description 10/31/[address] 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
--- OUTSIDE RECORDS SUMMARY | 2025-02-25 09:54 | XMS_ITS | Encounter Summary ---
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
--- OUTSIDE RECORDS SUMMARY | 2025-02-25 09:54 | XMS_ITS | Encounter Summary ---
Author Organization [facility] Address [address] [place] [address] Care Team Providers Care Spanish Speaking Nanny Name Role Phone Jim Dykes MD Primary Care Provider [phone] Encounter Details Date Type Department Care Team (Latest Contact Info) Description 01/28/1999 Outpatient Historical [facility] [address] [place] [address] Abel Dye MD [address] [place] [address] Secondary syph skin (Primary Dx) Social History Tobacco Use Types Packs/Day Years Used Date Smoking Tobacco: Never Assessed Sex and Gender Information Value Date Recorded Sex Assigned at Not on file 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
--- OUTSIDE RECORDS SUMMARY | 2025-02-25 09:54 | XMS_ITS | Encounter Summary ---
Author Organization [facility] Address [address] [place] [address] Care Team Providers Care Steel Pickler Name Role Phone Jim Dykes MD Primary Care Provider [phone] Encounter Details Date Type Department Care Team (Latest Contact Info) Description 10/10/1998 Outpatient Historical HIS [facility] Paul Blum M [address] [place] [address] Other specified aftercare following surgery (Primary Dx) Social History Tobacco Use Types Packs/Day Years Used Date Smoking Tobacco: Never Assessed Sex and Gender Information Value Date Recorded Sex Assigned at Not on file 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
--- OUTSIDE RECORDS SUMMARY | 2025-02-25 09:54 | XMS_ITS | Encounter Summary ---
Author Organization [facility] Address [address] [place] [address] Care Team Providers Care Automobile Body Worker Name Role Phone Jim Dykes MD Primary Care Provider [phone] Encounter Details Date Type Department Care Team (Latest Contact Info) Description 12/09/1998 Outpatient Historical HIS [facility] Paul Blum M [address] [place] [address] Other specified aftercare following surgery (Primary Dx) Social History Tobacco Use Types Packs/Day Years Used Date Smoking Tobacco: Never Assessed Sex and Gender Information Value Date Recorded Sex Assigned at Not on file 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
--- OUTSIDE RECORDS SUMMARY | 2025-02-25 09:54 | XMS_ITS | Encounter Summary ---
Author Organization [facility] Address [address] [place] [address] Care Team Providers Care Materials Planner Name Role Phone Jim Dykes MD Primary Care Provider [phone] Encounter Details Date Type Department Care Team (Latest Contact Info) Description 02/05/1999 Outpatient Historical [facility] [address] [place] [address] Abel Dye MD [address] [place] [address] Sprain lumbar region (Primary Dx) Social History Tobacco Use Types Packs/Day Years Used Date Smoking Tobacco: Never Assessed Sex and Gender Information Value Date Recorded Sex Assigned at Not on file 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
--- OUTSIDE RECORDS SUMMARY | 2025-02-25 09:54 | XMS_ITS | Encounter Summary ---
Author Organization [facility] Address [address] [place] [address] Care Team Providers Care Correctional Security Officer Name Role Phone Jim Dykes MD Primary Care Provider [phone] Encounter Details Date Type Department Care Team (Late st Contact Info) Description 10/03/1997 Outpatient Historical [facility] Elizabeth [address] [place] [address] Lucie Prince, DO NO ADDRESS ON FILE Acute conjunctivitis, unspecified (Primary Dx); Headache(784.0) Social History Tobacco Use Types Packs/Day Years Used Date Smoking Tobacco: Never Assessed Sex and Gender Information Value Date Recorded Sex Assigned at Not on file 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
--- OUTSIDE RECORDS SUMMARY | 2025-02-25 09:54 | XMS_ITS | Encounter Summary ---
Author Organization [facility] Address [address] [place] [address] Care Team Providers Care Geospatial Systems Integrator Name Role Phone Jim Dykes MD Primary Care Provider [phone] Encounter Details Date Type Department Care Team (Latest Contact Info) Description 06/25/1999 Outpatient Historical [facility] [address] [place] [address] Abel Dye MD [address] [place] [address] Anxiety state, unspecified (Primary Dx); Dysthymic disorder; Insomnia, unspecified Social History Tobacco Use Types Packs/Day Years Used Date Smoking Tobacco: Never Assessed Sex and Gender Information Value Date Recorded Sex Assigned at Not on file 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
--- OUTSIDE RECORDS SUMMARY | 2025-02-25 09:54 | XMS_ITS | Encounter Summary ---
Author Organization [facility] Address [address] [place] [address] Care Team Providers Care Design And Sales Consultant Name Role Phone Jim Dykes MD Primary Care Provider [phone] Encounter Details Date Type Department Care Team (Latest Contact Info) Description 08/01/1999 Outpatient Historical [facility] Med Services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
--- OUTSIDE RECORDS SUMMARY | 2025-02-25 09:54 | XMS_ITS | Encounter Summary ---
Author Organization [facility] Address [address] 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
--- OUTSIDE RECORDS SUMMARY | 2025-02-25 09:54 | XMS_ITS | Encounter Summary ---
Author Organization [facility] Address [address] [place] [address] Care Team Providers Care Inspector Exhaust Emissions Name Role Phone Jim Dykes MD Primary Care Provider [phone] Encounter Details Date Type Department Care Team (Latest Contact Info) Description 05/21/1998 Outpatient Historical [facility] Paul Blum M [address] [place] [address] Condyloma acuminatum (Primary Dx) Social History Tobacco Use Types Packs/Day Years Used Date Smoking Tobacco: Never Assessed Sex and Gender Information Value Date Recorded Sex Assigned at Not on file 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
--- OUTSIDE RECORDS SUMMARY | 2025-02-25 09:54 | XMS_ITS | Encounter Summary ---
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
--- OUTSIDE RECORDS SUMMARY | 2025-02-25 09:54 | XMS_ITS | Encounter Summary ---
Author Organization [facility] Address [address] [place] [address] Care Team Providers Care Cane Burner Name Role Phone Jim Dykes MD Primary Care Provider [phone] Encounter Details Date Type Department Care Team (Latest Contact Info) Description 12/02/1998 Outpatient Historical HIS [facility] Paul Blum M [address] [place] [address] Other specified aftercare following surgery (Primary Dx) Social History Tobacco Use Types Packs/Day Years Used Date Smoking Tobacco: Never Assessed Sex and Gender Information Value Date Recorded Sex Assigned at Not on file 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
--- OUTSIDE RECORDS SUMMARY | 2025-02-25 09:54 | XMS_ITS | Encounter Summary ---
Author Organization [facility] Address [address] [place] [address] Care Team Providers Care Lead Python Developer Name Role Phone Jim Dykes MD Primary Care Provider [phone] Encounter Details Date Type Department Care Team (Latest Contact Info) Description 11/21/1998 Outpatient Historical HIS [facility] Paul Blum M [address] [place] [address] Other specified aftercare following surgery (Primary Dx) Social History Tobacco Use Types Packs/Day Years Used Date Smoking Tobacco: Never Assessed Sex and Gender Information Value Date Recorded Sex Assigned at Not on file 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 [place] [facility] [place] [address] PCP - General Family Practice 04/14/18 documented as of this encounter
--- OUTSIDE RECORDS SUMMARY | 2025-02-25 09:55 | XMS_ITS | Encounter Summary ---
Author Organization [facility] Address [address] [place] [address] Care Team Providers Care Pipe Washer Name Role Phone Jim Dykes MD Primary Care Provider [phone] Encounter Details Date Type Department Care Team (Latest Contact Info) Description 11/11/2000 Outpatient Historical [facility] 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
--- OUTSIDE RECORDS SUMMARY | 2025-02-25 09:55 | XMS_ITS | Encounter Summary ---
Author Organization [facility] Address [address] [place] [address] Care Team Providers Care Web Mobile Designer Name Role Phone Jim Dykes MD Primary Care Provider [phone] Encounter Details Date Type Department Care Team (Late st Contact Info) Description 08/12/2020 Ancillary Orders [facility] [place] [address] [place] [address] Dr YAÑEZ [address] [place] [address] Irma Romero, IMPROVEMENT ADVISOR NO ADDRESS ON FILE Pain Social History Tobacco Use Types Packs/Day Years Used Date Smoking Tobacco: Former Cigarettes 2 27 0 12/19/1991 - 12/18/2018 Smokeless Tobacco: Current Snuff, Chew Alcohol Use Standard Drinks/Week Comments Yes 27 (1 standard drink = 0.6 oz pu re alcohol) seldom Sex and Gender Information Value Date Recorded Sex Assigned at Not on file 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 No / Unsure 08/13/2020 12:42 PM CDT documented as of this encounter Plan of Treatment Not on file documented as of this encounter Results * XR FLUORO NEEDLE PLACEMENT (08/13/2020 1:22 PM CDT) Narrative [facility] [place] [facility] [place] - 08/13/2020 1:23 PM CDT Order information only. Exam was auto-finalized. us Irma Romero IMPROVEMENT ADVISOR DIAGNOSTIC IMAGING ORDERABLES Final Result [facility] [place] JAMIAL #[id number] [address] [place] [address] [place] [address] documented in this encounter Visit Diagnoses Diagnosis Pain Generalized pain Pain Generalized pain documented in this encounter Care Teams Web Mobile Designer Relationship Specialty Start Date End Date Jim Dykes MD [address] [place] [phone] PCP - General Family Practice 04/14/18 documented as of this encounter
--- OUTSIDE RECORDS SUMMARY | 2025-02-25 09:55 | XMS_ITS | Encounter Summary ---
Author Organization [facility] Address [address] [place] [address] Care Team Providers Care Roving Hauler Name Role Phone Jim Dykes MD Primary Care Provider [phone] Encounter Details Date Type Department Care Team (Latest Contact Info) Description 10/28/1999 Outpatient Historical HIS [facility] Paul Blum M [address] [place] [address] Other specified aftercare following surgery (Primary Dx) Social History Tobacco Use Types Packs/Day Years Used Date Smoking Tobacco: Never Assessed Sex and Gender Information Value Date Recorded Sex Assigned at Not on file 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
--- OUTSIDE RECORDS SUMMARY | 2025-02-25 09:55 | XMS_ITS | Encounter Summary ---
Author Organization [facility] Address [address] [place] [address] Care Team Providers Care Bursar Name Role Phone Jim Dykes MD Primary Care Provider [phone] Encounter Details Date Type Department Care Team (Latest Contact Info) Description 09/04/1999 Outpatient Historical HIS [facility] Paul Blum M [address] [place] [address] Condyloma acuminatum (Primary Dx) Social History Tobacco Use Types Packs/Day Years Used Date Smoking Tobacco: Never Assessed Sex and Gender Information Value Date Recorded Sex Assigned at Not on file 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
--- OUTSIDE RECORDS SUMMARY | 2025-02-25 09:55 | XMS_ITS | Clinical Summary ---
Author Organization [facility] Address [address] [place] [id number] Care Team Providers Care Rn Oncology Clinical Name Role Phone Avtar Castillo MD Primary Care Provider [phone] Allergies Active Allergy Reactions Criticality Noted Date Comments Baclofen Other (See comments) Low 05/26/2021 Rectal bleeding Enoxaparin Other (See comments) Low 05/26/2021 Petichiae Gabapentin Agitation Low 05/26/2021 Prednisone Flushing (skin) Low 05/26/2021 Warfarin Other (See comments) Low 05/26/2021 patichiea Alprazolam Agitation Low 05/26/2021 Encounters Date Type Department Care Team Description 02/05/2025 [facility] Post Discharge Follow up phone call [facility] Emergency Department [id number] [place] [id number] Morenita Cifuentes RN 02/01/2025 2:05 PM CDT - 02/01/2025 10:37 PM CDT Emergency [facility] Emergency Department [address] [place] [phone] Lumbar strain, initial encounter (Primary Dx) Discharge Disposition: Discharge to home or self care from Last 3 Months Medical History Medical History Date Comments Diabetes mellitus Hypertension Social History Tobacco Use Types Packs/Day Years Used Date Smoking Tobacco: Never Assessed Personal Safety Answer Date Recorded Have you ever been in or are you currently in a harmful physical or emotional relationship or is someone making you feel afraid or unsafe? 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 Height 188 cm (6' 2) 05/26/2021 7:29 PM [employer]S SALES MANAGER Body Mass Index 50.04 05/26/2021 7:29 PM [employer]S SALES MANAGER Plan of Treatment Health Maintenance Due Date Last Done Comments Albumin Creatinine Ratio, Urine 1976 Colon Cancer Screening-Colonoscopy 1976 Depression Screening 1976 Hemoglobin A1C 1976 Hepatitis C Screening 1976 Dilated Eye Exam 1976 Foot Exam 1976 Lipid Panel 1976 DTaP/Tdap/Td Vaccine (1 - Tdap) 1987 Hepatitis B Screening 1994 Regular Well Visit/Exam 18-64 1994 Pneumococcal vaccine <65 (2 of 2 - PPSV23, PCV20, or PCV21) 05/03/2018 03/08/2018 Influenza Vaccine (#1) 2024 02/19/2022, 2017 eGFR 02/01/2026 02/01/2025 Procedures Procedure Name Priority Date/Time Associated Diagnosis Comments DRUGS OF ABUSE SCREEN, URINE WITHOUT CONFIRMATION STAT 02/01/2025 8:27 PM CDT URINALYSIS AND REFLEX TO MICROSCOPIC AND CULTURE STAT 02/01/2025 8:27 PM CDT TROPONIN T HIGH-SENSITIVITY 2-HOUR Timed 02/01/2025 7:[address] LUMBAR SPINE WO CONTRAST ED 02/01/2025 6:36 PM CDT ECG 12-LEAD STAT 02/01/2025 6:12 PM CDT CREATINE KINASE (CK), TOTAL Add-On 02/01/2025 5:50 PM CDT EGFR STAT 02/01/2025 5:50 PM CDT DIFFERENTIAL AUTO STAT 02/01/2025 5:5 0 PM CDT ERYTHROCYTE SEDIMENTATION RATE Add-On 02/01/2025 5:50 PM CDT CRP (ACUTE PHASE) STAT 02/01/2025 5:5 0 PM CDT TROPONIN T HIGH-SENSITIVITY SERIES (BASELINE, 2HR, 4HR, 6HR) STAT 02/01/2025 5:50 PM CDT COMPREHENSIVE METABOLIC PANEL STAT 02/01/2025 5:50 PM CDT CBC WITH AUTO DIFFERENTIAL STAT 02/01/2025 5:50 PM CDT from Last 3 Months Results * (ABNORMAL) Urinalysis reflex to microscopic and culture Urine (02/01/2025 8:27 PM CDT) Color, ur Yellow Yellow Clarity, ur Clear Clear [facility] Specific gravity, ur 1.026 1.003 - 1.030 [facility] pH, urine 5.5 [facility] Comment: Interpretive Data U rine pH is affected by diet, medications, systemic acid-base disturbances, and renal tubular function. pH may affect urinary stone formation. For example, urine pH below 6.0 may help reduce the tendency for calcium phosphate stones and pH greater than 6.0 may reduce the tendency for uric acid stone formation. Source: Incentive Targeting Current Interpretive Data was last revised on 2017 Protein, ur ql Negative Negative [facility] Glucose, ur ql 4+(A) Negative [facility] Ketones, ur Negative Negative [facility] Bilirubin, ur Negative Negative [facility] Blood, ur Negative Negative [facility] Urobilinogen, ur <2.0 <2.0 mg/dL [facility] Nitrite, ur Negative Negative [facility] Leukocyte esterase, ur Negative Negative [facility] UA reflex comment Reflex conditions for microscopic UA and culture not met. [facility] Urine 02/01/2025 8:27 PM CDT 02/01/2025 8:33 PM CDT Kamla Goode Claudette [facility] - [facility] ORDERABLES Final Result [facility] [id number] Department [place] [address] * (ABNORMAL) Drugs of Abuse Screen, Urine without Confirmation (02/01/2025 8:27 PM CDT) Amphetamine, ur Not Detected CutOff 500ng/mL Comment: Interpretive Data - Amphetamines: Samples containing greater than 500 ng/mL d-methamphetamine or other cross-reacting amphetamine compounds are reported as positive. Amphetamine immunoassays are subject to significant false positive rates due to cross-reactivity of non-amphetamine drugs. Confirmatory testing required for definitive results. Current Interpretive Data was last reviewed 2022. Barbiturates, ur Not Detected CutOff 200ng/mL [facility] Comment: Interpretive Data - Barbiturates: Samples containing greater than 200 ng/mL secobarbital or other cross-reacting barbiturate compounds are reported as positive. False positive and false negative results are possible. Confirmatory testing required for definitive results. Current Interpretive Data was last reviewed 2022. Benzodiazepines, ur Not Detected CutOff 100ng/mL [facility] Comment: Interpretive Data - Benzodiazepines: Samples containing greater than 100 ng/mL nordiazepam or other cross-reacting compounds are reported as positive. False positive and false negative results are possible. Confirmatory testing required for definitive results. Current Interpretive Data was last reviewed 2022. Cannabinoids, ur Screen Positive, presumptive (A) CutOff 50 ng/mL [facility] Comment: Interpretive Data - Cannabinoids: Samples containing greater than 50 ng/mL delta-9 THC -COOH or other cross- reacting compounds are reported as positive. False positive and false negative results are possible. Confirmatory testing required for definitive results. Current Interpretive Data was last reviewed 2022. Cocaine, ur Not Detected CutOff 150ng/mL [facility] Comment: Interpretive Data - Cocaine: Samples containing greater than 150 ng/mL benzoylecgonine or other cross- reacting compounds are reported as positive. False positive and false negative results are possible. Confirmatory testing required for definitive results. Current Interpretive Data was last reviewed 2022. Fentanyl, Ur Not Detected CutOff 5 ng/mL [facility] Comment: Interpretive Data - Fentanyl: Samples containing greater than 5 ng/mL norfentanyl, fentanyl, or other cross-reacting fentanyl compounds are reported as positive. False positive and false negative results are possible. Confirmatory testing required for definitive results. Current Interpretive Data was last reviewed 2023. Methadone, ur Not Detected CutOff 300ng/mL [facility] Comment: Interpretive Data - Methadone: Samples containing greater than 300 ng/mL d,l-methadone or other cross-reacting compounds are reported as positive. False positive and false negative results are possible. Confirmatory testing required for definitive results. Current Interpretive Data was last reviewed 2022. Opiates, ur Not Detected CutOff 300ng/mL [facility] Comment: Interpretive Data - Opiates: Samples containing greater than 300 ng/mL morphine or other cross-reacting compounds are reported as positive. False positive and false negative results are possible. Confirmatory testing required for definitive results. Current Interpretive Data was last reviewed 2022. Oxycodone, ur Not Detected CutOff 100ng/mL [facility] Comment: Interpretive Data - Oxycodone: Samples containing greater than 100 ng/mL oxycodone or other cross-reacting compounds are reported as positive. False positive and false negative results are possible. Confirmatory testing required for definitive results. Current Interpretive Data was last reviewed 2022. Phencyclidine, ur Not Detected CutOff 25 ng/mL [facility] Comment: Interpretive Data - Phencyclidine: Samples containing greater than 25 ng/mL phencyclidine or other cross-reacting compounds are reported as positive. False positive and false negative results are possible. Confirmatory testing required for definitive results. Current Interpretive Data was last reviewed 2022. Urine Creatinine 86 mg/dL [facility] Comment: Interpretive Data Urine Creatinine: < 10 mg/dL is extremely dilute = or > 10 but < 20 mg/dL is dilute = or > 20 mg/dL is normal Current Interpretive Data was last revised on 2017. Urine 02/01/2025 8:27 PM CDT 02/01/2025 8:33 PM CDT Narrative [facility] - 02/01/2025 9:25 PM CDT Drug of Abuse screening is performed by immunoassay for medical purposes only. This is not to be used for Pain Management purposes. Kamla Wilkins PLUG ASSEMBLER LAB URINE ORDERABLES Final Result Performing Organization Address City/[facility] Co de Phone Number [facility] [address] [address] [place] [address] * Troponin T high-sensitivity 2-hour (02/01/2025 7:40 PM CDT) Trop T hs <6 <=22 ng/L Comment: Interpretive Data For further hscTnT resources including the diagnostic algorithm and an aid in interpretation, copy and paste this link: https://nrl.testcatalog.org/show/hsTrop Current Interpretive Data last revised 2020. Trop T hs delta 0 ng/L [facility] Trop T hs interp Insignificant [facility] Blood 02/01/2025 7:40 PM CDT 02/01/2025 7:43 PM CDT Coral Ramos PLUG ASSEMBLER LAB BLOOD ORDERABLES Final Result Performing Organization Address [facility] Co de Phone Number [facility] [id number] [address] Department [place] [address] * CT Lumbar Spine WO Contrast (02/01/2025 6:36 PM CDT) Anatomical Region Laterality Modality Spine N/A Computed Tomogra phy 02/01/2025 7:04 PM CDT Impressions 02/01/2025 7:04 PM CDT L2-3 and L3-4 disc bulging, facet arthropathy, and mild central stenosis. L4-5 disc bulge, facet arthropathy and laminectomy with mild central and lateral recess stenosis. Electronically signed by: Grace Archuleta M.D. Narrative 02/01/2025 7:04 PM CDT EXAM: CT LUMBAR SPINE WO CONTRAST: DATE: 02/01/2025 6:30 PM CLINICAL HISTORY: pain TECHNIQUE: Computed tomographic images of the lumbar spine were obtained in the axial plane in both bone and soft tissue windows. Coronal and sagittal reformatted images were performed. COMPARISON: None FINDINGS: There are 5 nxs-gxh-kjfgzgd lumbar vertebral bodies. Bony alignment is normal. The vertebral body heights are normal without evidence of fracture. The intervertebral disc spaces are well-maintained. L1-L2: Bulging disc and mild facets arthropathy is seen.. There is no central, lateral recess or foraminal stenosis. L2-L3: Bulging disc, moderate facet arthropathy and epidural lipomatosis is seen with mild central stenosis. L3-L4: Bulging disc, short pedicles, moderate facet arthropathy, and laminectomy defect is seen with mild central and lateral recess stenosis. L4-L5: Disc bulge and, short pedicles, moderate facet arthropathy and laminectomy is seen. There is mild foraminal stenosis bilateral central and lateral recess stenosis. L5-S1: Disc bulging and fpgm-bb-dnlocjqx facet arthropathy is seen. There is mild right foraminal stenosis but no central or recess stenosis. Dorsal midline lower lumbar surgical scar is seen. Procedure Note Grace Archuleta MD - 02/01/2025 EXAM: CT LUMBAR SPINE WO CONTRAST: DATE: 02/01/2025 6:30 PM CLINICAL HISTORY: pain TECHNIQUE: Computed tomographic images of the lumbar spine were obtained in the axial plane in both bone and soft tissue windows. Coronal and sagittal reformatted images were performed. COMPARISON: None FINDINGS: There are 5 cas-fbq-nznyubu lumbar vertebral bodies. Bony alignment is normal. The vertebral body heights are normal without evidence of fracture. The intervertebral disc spaces are well-maintained. L1-L2: Bulging disc and mild facets arthropathy is seen.. There is no central, lateral recess or foraminal stenosis. L2-L3: Bulging disc, moderate facet arthropathy and epidural lipomatosis is seen with mild central stenosis. L3-L4: Bulging disc, short pedicles, moderate facet arthropathy, and laminectomy defect is seen with mild central and lateral recess stenosis. L4-L5: Disc bulge and, short pedicles, moderate facet arthropathy and laminectomy is seen. There is mild foraminal stenosis bilateral central and lateral recess stenosis. L5-S1: Disc bulging and exin-tf-ubgdrymr facet arthropathy is seen. There is mild right foraminal stenosis but no central or recess stenosis. Dorsal midline lower lumbar surgical scar is seen. IMPRESSION: L2-3 and L3-4 disc bulging, facet arthropathy, and mild central stenosis. L4-5 disc bulge, facet arthropathy and laminectomy with mild central and lateral recess stenosis. Electronically signed by: Grace Archuleta M.D. Coral Ramos NP IMG CT PROCEDURES Fi nal Result * ECG 12 lead (02/01/2025 6:12 PM CDT) 02/01/2025 6:12 PM CDT Narrative [facility] - 02/01/2025 9:13 PM CDT Vent Rate: 79 bpm RR Interval: 758 msec AK Interval: 175 msec QRS Duration: 100 msec QT Interval: 366 msec QTC Interval: 400 msec P-R-T [place]: 66 - 53 - 69 degrees IMPRESSION: SINUS RHYTHM RIGHT VENTRICULAR CONDUCTION DELAY EARLY REPOLARIZATION Electronically Signed By: Luis F Maravilla MD, [facility] Coral Ramos NP ECG ORDERABLES Ina l Result [facility] * Troponin T high-sensitivity series (baseline, 2hr, 4hr, 6hr) (02/01/2025 5:50 PM CDT) Trop T hs <6 <=22 ng/L Comment: Interpretive Data For further hscTnT resources including the diagnostic algorithm and an aid in interpretation, copy and paste this link: https://nrl.testcatalog.org/show/hsTrop Current Interpretive Data last revised 2020. Blood 02/01/2025 5:50 PM CDT 02/01/2025 5:53 PM CDT us Coral Ramos PLUG ASSEMBLER LAB BLOOD ORDERABLES Final Result Performing Organization Address City/[facility] Co de Phone Number [facility] MARQUEZ [address] [address] Department [place] [address] * eGFR (02/01/2025 5:50 PM CDT) eGFR 87 >=60 mL/min/1. 73 m2 Comment: Interpretive Data Reference Interval Normal >/= 90 mL/min/1.73m2 Mildly decreased* 60 - 89 mL/min/1.73m2 Mildly to moderately decreased 45 - 59 mL/min/1.73m2 Moderately to severely decreased 30 - 44 mL/min/1.73m2 Severely decreased 15 - 29 mL/min/1.73m2 Kidney Failure < 15 mL/min/1.73m2 *Relative to young adult level Estimated glomerular filtration rate is determined by the 2020 CKD-EPI equation recommended by the National Kidney Foundation (A Unifying Approach to GFR Estimation: Recommendations of the NKF-ASK Task Force on Reassessing the Inclusion of Race in Diagnosing Kidney Disease, JASN 2020). The CKD-EPI equation should not be used for patients with unstable renal function and has not been validated in children and those over 70. Current interpretive data was last reviewed 2021. Blood 02/01/2025 5:50 PM CDT 02/01/2025 5:53 PM CDT us Coral Ramos PLUG ASSEMBLER LAB BLOOD ORDERABLES Final Result Performing Organization Address City/[facility]/ZIP Co de Phone Number ARNULFO MARQUEZ [address] Department of Laboratories [place], [place] [id number] * (ABNORMAL) Differential, auto (02/01/2025 5:50 PM CDT) Neutrophil abs 9.14(H) 1.50 - 6.50 K/cumm Imm gran abs 0.07 0.00 - 0.10 K/cumm [facility] Lymphocyte abs 2.12 0.80 - 3.30 K/cumm [facility] Monocyte abs 0.82(H) 0.20 - 0.80 K/cumm [facility] Eosinophil abs 0.23 0.00 - 0.50 K/cumm [facility] Basophil abs 0.10 0.00 - 0.10 K/cumm [facility] Neutrophil pct 73.2 % [facility] Comment: Interpretive Data Percent cell count reference ranges are not reported, since discordance with absolute values may lead to misinterpretation of CBC data. Current Interpretive Data was last revised on 2017. Imm gran pct 0.6 % [facility] Comment: Interpretive Data Percent cell count reference ranges are not reported, since discordance with absolute values may lead to misinterpretation of CBC data. Current Interpretive Data was last revised on 2017. Lymphocyte pct 17.0 % [facility] Comment: Interpretive Data Percent cell count reference ranges are not reported, since discordance with absolute values may lead to misinterpretation of CBC data. Current Interpretive Data was last revised on 2017. Monocyte pct 6.6 % [facility] Comment: Interpretive Data Percent cell count reference ranges are not reported, since discordance with absolute values may lead to misinterpretation of CBC data. Current Interpretive Data was last revised on 2017. Eosinophil pct 1.8 % [facility] Comment: Interpretive Data Percent cell count reference ranges are not reported, since discordance with absolute values may lead to misinterpretation of CBC data. Current Interpretive Data was last revised on 2017. Basophil pct 0.8 % [facility] Comment: Interpretive Data Percent cell count reference ranges are not reported, since discordance with absolute values may lead to misinterpretation of CBC data. Current Interpretive Data was last revised on 2017. Blood 02/01/2025 5:50 PM CDT 02/01/2025 5:53 PM CDT us Coral Ramos NP LAB BLOOD ORDERABLES Final Result [facility] [address] Department [place] [address] * (ABNORMAL) CBC with auto differential (02/01/2025 5:50 PM CDT) WBC 12.48(H) 3.80 - 9.90 K/cumm Hgb 21.6(C) 13.0 - 17.5 g/dL [facility] Comment:This result has been called to Foster Douglass by [id number] on 02/01/2025 18:23:53, and has been read back. Hct 62.9(H) 38.9 - 50.3 % [facility] Plt 188 150 - 400 K/cumm [facility] MPV 9.9 9.1 - 12.3 fL [facility] RBC 6.87(H) 4.30 - 5.80 M/cumm [facility] MCV 91.6 81.3 - 96.4 fL [facility] MCH 31.7 27.1 - 33.3 pg [facility] MCHC 34.7 32.3 - 35.7 g/dL [facility] RDW CV 15.1(H) 11.1 - 14.9 % [facility] RDW SD 46.4 35.7 - 48.1 fL [facility] NRBC abs 0.00 0.00 - 0.01 K/cumm [facility] CH Blood 02/01/2025 5:50 PM CDT 02/01/2025 5:53 PM CDT Coral Ramos NP LAB BLOOD ORDERABLES Final Result Performing Organization Address [facility] Co de Phone Number [facility] [address] [address] [facility] [place] [address] * Erythrocyte sedimentation rate (02/01/2025 5:50 PM CDT) Pathologist [facility] Erythrocyte sedimentation rate 10 1 - 15 mm/hr Blood 02/01/2025 5:50 PM CDT 02/01/2025 5:53 PM CDT Coral Ramos NP LAB BLOOD ORDERABLES Final Result Performing Organization Address City/[facility] Co de Phone Number [facility] [address] [address] Department [place] [employer] [address] * CRP (acute phase) (02/01/2025 5:50 PM CDT) [facility] CRP <3.0 <=10.0 mg/L Blood 02/01/2025 5:50 PM CDT 02/01/2025 5:53 PM CDT Coral Ramos PLUG ASSEMBLER LAB BLOOD ORDERABLES Final Result [facility] [address] [address] [place] [address] * (ABNORMAL) Creatine kinase (CK), total (02/01/2025 5:50 PM CDT) [facility] CK 330(H) 40 - 300 Units/L Blood 02/01/2025 5:50 PM CDT 02/01/2025 7:29 PM CDT Kamla Wilkins PLUG ASSEMBLER LAB BLOOD ORDERABLES Final Result Performing Organization Address City/[facility] Co de Phone Number [facility] [address] [address] Department [place] [address] * (ABNORMAL) Comprehensive metabolic panel (02/01/2025 5:50 PM CDT) [facility] Sodium 137 135 - 145 mmol/L Potassium, pl 4.3 3.3 - 4.9 mmol/L [facility] Chloride 99 97 - 110 mmol/L [facility] CO2 19(L) 22 - 32 mmol/L [facility] Anion gap 19(H) 2 - 15 mmol/L [facility] BUN 31(H) 6 - 25 mg/dL [facility] Creatinine 1.06 0.80 - 1.30 mg/dL [facility] Comment:Icteric sample, test results may be affected. Glucose 121 70 - 199 mg/dL [facility] Comment: Interpretive Data Fasting glucose >/= 126 mg/dl is diagnostic for diabetes. Fasting is defined as no caloric intake for at least 8 hours. Fasting glucose between 100 mg/dl to 125 mg/dl is diagnostic of prediabetes. In a patient with classic symptoms of hyperglycemia or hyperglycemic crisis, a random glucose >/= 200 mg/dl is diagnostic for diabetes. In the absence of unequivocal hyperglycemia, results should be confirmed by repeat testing. The classification and Diagnosis of Diabetes Diabetes Care 202; 46: S19-S40. Current interpretive data was last revised 2022. Calcium 9.7 8.5 - 10.3 mg/dL [facility] Bilirubin, total 1.4(H) 0.1 - 1.2 mg/dL [facility] Protein, pl 7.3 6.5 - 8.5 g/dL [facility] Albumin 4.6 3.5 - 5.0 g/dL [facility] Alk phos 87 40 - 130 Units/L [facility] ALT 47 7 - 55 Units/L [facility] AST 34 10 - 50 Units/L [facility] Blood 02/01/2025 5:50 PM CDT 02/01/2025 5:53 PM CDT Coral Ramos NP LAB BLOOD ORDERABLES Final Result [address] [address] [address] [place] [address] from Last 3 Months Insurance MEDICARE MEDICARE [facility] MEDICARE Care Teams Rn Oncology Clinical Relationship Specialty Start Date End Date Avtar Castillo MD [facility] [place] [address] PCP - General Family Medicine 02/01/25
--- OUTSIDE RECORDS SUMMARY | 2025-02-25 09:55 | XMS_ITS | Encounter Summary ---
Author Organization [facility] Address [address] [place] [address] Care Team Providers Care Certified Welder Name Role Phone Jim Dykes MD Primary Care Provider [phone] Encounter Details Date Type Department Care Team (Latest Contact Info) Description 10/26/2000 Outpatient Historical [facility] Th[facility] 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 Gender Identity Not on file Sexual Orientation Not on file documented as of this encounter Plan of Treatment Not on file documented as of this encounter Visit Diagnoses Diagnosis Unspecified sleep apnea- Primary Deviated nasal septum Hypertrophy tonsils Hypertrophy of tonsils alone Hypertrph nasal turbinat Hypertrophy of nasal turbinates documented in this encounter Care Teams Certified Welder Relationship Specialty Start Date End Date Jim Dykes MD [address] [facility] [place] [address] PCP - General Family Practice 04/14/18 documented as of this encounter
--- OUTSIDE RECORDS SUMMARY | 2025-02-25 09:55 | XMS_ITS | Encounter Summary ---
Author Organization [facility] Address [address] [place] [address] Care Team Providers Care Sfdc Technical Architect Name Role Phone Jim Dykes MD Primary Care Provider [phone] Encounter Details Date Type Department Care Team (Latest Contact Info) Description 09/01/1999 Outpatient [facility] Dermatology- [facility] Elizabeth [address] [place] [address] Jesse Barnes MD NO ADDRESS ON FILE Condyloma acuminatum (Primary Dx); Impetigo Social History Tobacco Use Types Packs/Day Years Used Date Smoking Tobacco: Never Assessed Sex and Gender Information Value Date Recorded Sex Assigned at Not on file 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
--- OUTSIDE RECORDS SUMMARY | 2025-02-25 09:55 | XMS_ITS | Encounter Summary ---
Author Organization [facility] Address 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
--- OUTSIDE RECORDS SUMMARY | 2025-02-25 09:55 | XMS_ITS | Encounter Summary ---
Author Organization [facility] Address [address] [place] [address] Care Team Providers Care Navy Fighter Pilot Name Role Phone Jim Dykes MD Primary Care Provider [phone] Encounter Details Date Type Department Care Team (Latest Contact Info) Description 12/18/1999 Outpatient Historical [facility] Psychiatry- [place] [address] [facility] [address] [place] [address] Robert Eastman Jr., MD [address] [facility] [place] [address] Major depressive disorder, single episode, mild (Primary Dx) Social History Tobacco Use Types Packs/Day Years Used Date Smoking Tobacco: Never Assessed Sex and Gender Information Value Date Recorded Sex Assigned at Not on file 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 [place] [address] PCP - General Family Practice 04/14/18 documented as of this encounter
--- OUTSIDE RECORDS SUMMARY | 2025-02-25 09:55 | XMS_ITS | Encounter Summary ---
Author Organization [facility] Address [address] [place] [address] Care Team Providers Care Solar Design Engineer Name Role Phone Jim Dykes MD Primary Care Provider [phone] Encounter Details Date Type Department Care Team (Latest Contact Info) Description 10/09/1999 Outpatient Historical [facility] Medicine-[facility] [address] [place] [address] Abel Dye MD [address] [place] [address] Anxiety state, unspecified (Primary Dx) Social History Tobacco Use Types Packs/Day Years Used Date Smoking Tobacco: Never Assessed Sex and Gender Information Value Date Recorded Sex Assigned at Not on file 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
--- OUTSIDE RECORDS SUMMARY | 2025-02-25 09:55 | XMS_ITS | Encounter Summary ---
Author Organization [facility] Address [address] [place] [address] Care Team Providers Care Polishing Wheel Repairer Name Role Phone Jim Dykes MD Primary Care Provider [phone] Encounter Details Date Type Department Care Team (Latest Contact Info) Description 08/14/1998 Outpatient Historical [facility] Paul Blum M [address] [place] [address] Other specified aftercare following surgery (Primary Dx) Social History Tobacco Use Types Packs/Day Years Used Date Smoking Tobacco: Never Assessed Sex and Gender Information Value Date Recorded Sex Assigned at Not on file 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
--- OUTSIDE RECORDS SUMMARY | 2025-02-25 09:55 | XMS_ITS | Encounter Summary ---
Author Organization [facility] Address [address] [place] [address] Care Team Providers Care Technical Internship Name Role Phone Jim Dykes MD Primary Care Provider [phone] Encounter Details Date Type Department Care Team (Latest Contact Info) Description 07/02/1998 Outpatient Historical [facility] Paul Blum M [address] [place] [address] Other specified aftercare following surgery (Primary Dx) Social History Tobacco Use Types Packs/Day Years Used Date Smoking Tobacco: Never Assessed Sex and Gender Information Value Date Recorded Sex Assigned at Not on file 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
--- OUTSIDE RECORDS SUMMARY | 2025-02-25 09:55 | XMS_ITS | Encounter Summary ---
Author Organization [facility] Address [address] [place] [address] Care Team Providers Care Critical Care Specialist Name Role Phone Jim Dykes MD Primary Care Provider [phone] Encounter Details Date Type Department Care Team (Latest Contact Info) Description 08/21/1998 Outpatient Historical [facility] [place] [facility] Paul Blum M [address] [place] [address] Other specified aftercare following surgery (Primary Dx) Social History Tobacco Use Types Packs/Day Years Used Date Smoking Tobacco: Never Assessed Sex and Gender Information Value Date Recorded Sex Assigned at Not on file 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
--- OUTSIDE RECORDS SUMMARY | 2025-02-25 09:55 | XMS_ITS | Encounter Summary ---
Author Organization [facility] Address 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
--- OUTSIDE RECORDS SUMMARY | 2025-02-25 09:55 | XMS_ITS | Clinical Summary ---
Author Organization [facility] Address [address] [place] [address] Phone Care Team Providers Care Transport Engineer Name Role Phone Jim Dykes MD Primary Care Provider [phone] Allergies Active Allergy Reactions Criticality Noted Date [...] ORAL Take 1 Capsule by mouth daily grape cutter. 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 [...] on file Legal Sex Male 6:09 AM GLAZING DEPARTMENT SUPERVISOR Gender Identity Not on file Sexual Orientation Not on file Last Filed Vital Signs Vital Sign Reading Time Taken Comments Blood Pressure 126/78 11/21/2020 2:36 PM CDT Pulse 91 11/21/2020 2:36 PM CDT Temperature 36.8 C (98.3 F) 04/26/2020 7:20 PM GLAZING DEPARTMENT SUPERVISOR Respiratory Rate 18 11/21/2020 2:36 PM CDT [...] 2024 02/22/2018 Medical Devices Implanted Type Area Delivery And Installation Subcontractor Device Identifier Shelf Expiration Date Model / Serial / Lot Hemostatic Surgiflo 8ml W/Thrombin 2994 - [id number] Implanted:Qty: 1 on 08/08/2018 by Alka Leong MD Hemostatic N/A: Spine Lumbar [employer] 09/17/2019 2994 / / [id number] Hemostatic Surgifoam Sz12-7 1971 - [id number] Implanted:Qty: 1 on 08/08/2018 by Alka Leong MD Hemostatic N/A: Spine Lumbar [employer] 05/12/20221971 / / [id number] Hemostatic Surgiflo 8ml W/Thrombin 2994 - Sna Implanted:Qty: 1 on 08/29/2018 by Alka Leong MD Hemostatic N/A: Spine Lumbar [employer] 10/17/2019 2994 / NA / [id number] Hemostatic Surgiflo 8ml W/Thrombin 2994 - Sna Implanted:Qty: 1 on 08/29/2018 by Alka Leong MD Hemostatic N/A: Spine Lumbar [employer] 10/17/2019 2994 / NA / [id number] Hemostatic Surgifoam Sz12-7 1971 - Sna Implanted:Qty: 1 on 08/29/2018 by Alka Leong MD Hemostatic N/A: Spine Lumbar [employer]- [employer] 06/29/20221971 / NA / [id number] Duragen Plus [id number] Dp-[id number] - Sna Implanted:Qty: 1 on 08/29/2018 by Alka Leong MD Tissue N/A: Spine Lumbar [employer] 12/17/2020 [id number] / NA / [id number] Procedures Procedure Name Priority Date/Time Associated Diagnosis Comments HEMOGLOBIN A1C Routine 07/27/2018 2:17 PM CDT from Last 3 Months or Most Recently Relevant to Health Maintenance Results * (ABNORMAL) HEMOGLOBIN A1C (07/27/2018 2:17 PM CDT) HEMOGLOBIN A1C 7.8(H) 4.0 - 6.0 % 07/27/2018 2:36 PM CDT [facility] EST. AVG GLUCOSE, A1C 177 mg/dL 07/27/2018 2:36 PM CDT [facility] Blood Venipuncture / Unknown 07/27/2018 2:17 PM CDT 07/27/2018 2:22 PM CDT Narrative [facility] - 07/27/2018 2:36 PM CDT HGB A1C INTERPRETATION NORMAL: <5.7% PRE-DIABETES: 5.7 - 6.4% DIABETES: 6.5% OR GREATER Rhett Green MD CHEMISTRY ORDERABLES Final Resu lt [facility] #[id number] [address] [place] [address] [facility] CLIA #[id number] [address] [place] [address] from Last 3 Months or Most Recently Relevant to Health Maintenance Insurance MEDICAID [place] MEDICARE PART A AND B [place]ICA[place] Care Teams Transport Engineer Relationship Specialty Start Date End Date Jim Dykes MD [address] [facility] [place] & [place] [address] PCP - General 07/31/20
--- OUTSIDE RECORDS SUMMARY | 2025-02-25 09:55 | XMS_ITS | Encounter Summary ---
Author Organization [facility] Address [address] [place] [address] Care Team Providers Care Plywood Patcher Name Role Phone Jim Dykes MD Primary Care Provider [phone] Encounter Details Date Type Department Care Team (Late st Contact Info) Description 05/14/2020 Ancillary Orders [facility] [place] [address] [place] [address] Dr YAÑEZ [address] [place] [address] Irma Romero, PHARMACY CLINICAL SPECIALIST NO ADDRESS ON FILE Pain Social History [...] on file Legal Sex Male 5:24 AM MALTED MILK SUPERVISOR Gender Identity Not on file Sexual Orientation Not on file COVID-19 Exposure Response Date Recorded In the last month, have you been in contact with someone who was confirmed or suspected to have Coronavirus / COVID-19? Unable to assess 05/14/2020 8:55 AM MALTED MILK SUPERVISOR documented as of this encounter Plan of Treatment Not on file documented as of this encounter Results * XR FLUORO NEEDLE PLACEMENT (05/14/2020 9:10 AM MALTED MILK SUPERVISOR) Narrative [facility] - 05/14/2020 9:10 AM MALTED MILK SUPERVISOR Order information only. Exam was auto-finalized. Irma Romero PHARMACY CLINICAL SPECIALIST DIAGNOSTIC IMAGING ORDERABLES Final Result [facility] #[id number] [address] [place] [address] [place] [address] documented in this encounter Visit Diagnoses Diagnosis Pain Generalized pain Pain Generalized pain documented in this encounter Care Teams Plywood Patcher Relationship Specialty Start Date End Date Jim Dykes MD [address] [place] [address] PCP - General Family Practice 04/14/18 documented as of this encounter
--- OUTSIDE RECORDS SUMMARY | 2025-02-25 09:55 | XMS_ITS | Encounter Summary ---
Author Organization [facility] Address [address] [place] [address] Care Team Providers Care Bull Riveter Name Role Phone Jim Dykes MD Primary Care Provider [phone] Encounter Details Date Type Department Care Team (Latest Contact Info) Description 09/17/1999 Outpatient Historical [facility] Paul Blum M [address] [place] [address] Other specified aftercare following surgery (Primary Dx) Social History Tobacco Use Types Packs/Day Years Used Date Smoking Tobacco: Never Assessed Sex and Gender Information Value Date Recorded Sex Assigned at Not on file 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
--- OUTSIDE RECORDS SUMMARY | 2025-02-25 09:55 | XMS_ITS | Encounter Summary ---
Author Organization [facility] Address [address] [place] [address] Care Team Providers Care Channel Marketing Specialist Name Role Phone Jim Dykes MD Primary Care Provider [phone] Encounter Details Date Type Department Care Team (Latest Contact Info) Description 03/23/2000 Outpatient Historical [facility]- [place] [address] [facility] [address] [place] [address] Robert Eastman Jr., MD [address] [facility] [place] [address] Major depressive disorder, single episode, mild (Primary Dx) Social History Tobacco Use Types Packs/Day Years Used Date Smoking Tobacco: Never Assessed Sex and Gender Information Value Date Recorded Sex Assigned at Not on file 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
--- OUTSIDE RECORDS SUMMARY | 2025-02-25 09:55 | XMS_ITS | Encounter Summary ---
Author Organization [facility] Address [address] [place] [address] Care Team Providers Care Rush Seater Name Role Phone Jim Dykes MD Primary Care Provider [phone] Encounter Details Date Type Department Care Team (Latest Contact Info) Description 07/22/[address] 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
--- OUTSIDE RECORDS SUMMARY | 2025-02-25 09:55 | XMS_ITS | Encounter Summary ---
Author Organization [facility] Address 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
--- OUTSIDE RECORDS SUMMARY | 2025-02-25 09:55 | XMS_ITS | Encounter Summary ---
Author Organization [facility] Address [address] [place] [address] Care Team Providers Care Clod Puller Name Role Phone Jim Dykes MD Primary Care Provider [phone] Reason for Referral * Radiology Services (Routine) - Closed Specialty Diagnoses / Procedures Referred By Contac t Referred To Contact Orthopedic Surgery Diagnoses Pain Procedures US GUIDE NEEDLE PLACEMENT Abel Steel MD Phone: tel: fax: [facility] [place] [place] [address] Phone: tel: fax: Referral ID Status Reason Start Date Expiration Date Visits Requested Visits Authorized [id number] Closed Ordering Department To Schedule 06/23/2019 07/23/2020 1 1 S SMOOTHER Encounter Details Date Type Department Care Team (Late st Contact Info) Description 06/23/2019 Ancillary Orders [place] [address] [place] [address] Abel Steel MD [address] [place] [phone] Pain Social History Tobacco Use Types Packs/Day Years Used Date Smoking Tobacco: Former Cigarettes 0.5 27 0 12/19/1991 - 12/18/2018 Smokeless Tobacco: Current Snuff, Chew Alcohol Use Standard Drinks/Week Comments Yes 0 (1 standard drink = 0.6 oz pur e alcohol) seldom Sex and Gender Information Value Date Recorded Sex Assigned at Not on file Legal Sex Male 5:24 AM GLASS SMOOTHER Gender Identity Not on file Sexual Orientation Not on file documented as of this encounter Plan of Treatment Not on file documented as of this encounter Results * US GUIDE NEEDLE PLACEMENT (09/20/2019 2:54 PM CDT) Anatomical Region Laterality Modality Ultrasound Narrative 09/25/2019 12:12 PM CDT The anatomy was visualized under ultrasound. [...] hemostasis was achieved. us Abel Steel MD US ORDERABLES Final Result documented in this encounter Visit Diagnoses Diagnosis Pain Generalized pain Pain Generalized pain documented in this encounter Care Teams Clod Puller Relationship Specialty Start Date End Date Jim Dkyes MD [address] [place] [address] PCP - General Family Practice 04/14/18 documented as of this encounter
--- OUTSIDE RECORDS SUMMARY | 2025-02-25 09:55 | XMS_ITS | Encounter Summary ---
Author Organization [facility] Address [address] [place] [address] Care Team Providers Care Group Worker Name Role Phone Jim Dykes MD Primary Care Provider [phone] Encounter Details Date Type Department Care Team (Latest Contact Info) Description 06/03/1998 Outpatient Historical [facility] Paul Blum M [address] [place] [address] Condyloma acuminatum (Primary Dx) Social History Tobacco Use Types Packs/Day Years Used Date Smoking Tobacco: Never Assessed Sex and Gender Information Value Date Recorded Sex Assigned at Not on file 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
--- OUTSIDE RECORDS SUMMARY | 2025-02-25 09:55 | XMS_ITS | Encounter Summary ---
Author Organization [facility] Address [address] 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 & [place] [address] PCP - General Family Practice 04/14/18 documented as of this encounter
--- OUTSIDE RECORDS SUMMARY | 2025-02-25 09:55 | XMS_ITS | Encounter Summary ---
Author Organization [facility] Address [address] 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
--- OUTSIDE RECORDS SUMMARY | 2025-02-25 09:55 | XMS_ITS | Encounter Summary ---
Author Organization [facility] Address [address] [place] [address] Care Team Providers Care Emergency Planner Name Role Phone Jim Dykes MD Primary Care Provider [phone] Encounter Details Date Type Department Care Team (Latest Contact Info) Description 06/12/1998 Outpatient Historical [facility] Paul Blum M [address] [place] [address] Other specified aftercare following surgery (Primary Dx) Social History Tobacco Use Types Packs/Day Years Used Date Smoking Tobacco: Never Assessed Sex and Gender Information Value Date Recorded Sex Assigned at Not on file 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
--- OUTSIDE RECORDS SUMMARY | 2025-02-25 09:55 | XMS_ITS | Encounter Summary ---
Author Organization [facility] Address [address] 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
--- OUTSIDE RECORDS SUMMARY | 2025-02-25 09:55 | XMS_ITS | Encounter Summary ---
Author Organization [facility] Address [address] 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
--- OUTSIDE RECORDS SUMMARY | 2025-02-25 09:55 | XMS_ITS | Encounter Summary ---
Author Organization [facility] Address [address] [place] [address] Care Team Providers Care Turn Operator Name Role Phone Jim Dykes MD Primary Care Provider [phone] Encounter Details Date Type Department Care Team (Latest Contact Info) Description 08/01/1998 Outpatient Historical [facility] Paul Blum M [address] [place] [address] Other specified aftercare following surgery (Primary Dx) Social History Tobacco Use Types Packs/Day Years Used Date Smoking Tobacco: Never Assessed Sex and Gender Information Value Date Recorded Sex Assigned at Not on file 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
--- OUTSIDE RECORDS SUMMARY | 2025-02-25 09:55 | XMS_ITS | Encounter Summary ---
Author Organization [facility] Address [address] Wheeler: [place] [address] Care Team Providers Care Page Technician Name Role Phone Jim Dykes MD Primary Care Provider [phone] Encounter Details Date Type Department Care Team (Late st Contact Info) Description 09/04/1999 Outpatient Historical Paul Blum [address] [place] [address] Social History Tobacco Use Types Packs/Day Years Used Date Smoking Tobacco: Never Assessed Sex and Gender Information Value Date Recorded Sex Assigned at Not on file Legal Sex Male 5:24 AM SUPPORT SERVICES SPECIALIST Gender Identity Not on file Sexual Orientation Not on file documented as of this encounter Plan of Treatment Not on file documented as of this encounter Visit Diagnoses Not on filedocumented in this encounter Care Teams Page Technician Relationship Specialty Start Date End Date Jim Dykes MD [address] [facility] & [place] [address] PCP - General Family Practice 04/14/18 documented as of this encounter
--- OUTSIDE RECORDS SUMMARY | 2025-02-25 09:55 | XMS_ITS | Encounter Summary ---
Author Organization [facility] Address [address] [place] [address] Care Team Providers Care Fishing Vessel Mate Name Role Phone Jim Dykes MD Primary Care Provider [phone] Encounter Details Date Type Department Care Team (Latest Contact Info) Description 09/24/1999 Outpatient Historical [facility] Paul Blum M [address] [place] [address] Other specified aftercare following surgery (Primary Dx) Social History Tobacco Use Types Packs/Day Years Used Date Smoking Tobacco: Never Assessed Sex and Gender Information Value Date Recorded Sex Assigned at Not on file 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
--- OUTSIDE RECORDS SUMMARY | 2025-02-25 09:55 | XMS_ITS | Encounter Summary ---
Author Organization [facility] Address [address] [place] [address] Care Team Providers Care Stitching Department Supervisor Name Role Phone Jim Dykes MD Primary Care Provider [phone] Reason for Referral * Radiology Services (Routine) - Closed Specialty Diagnoses / Procedures Referred By Contac t Referred To Contact Orthopedic Surgery Diagnoses Pain Procedures US GUIDE NEEDLE PLACEMENT Abel Steel MD Phone: tel: fax: [facility] [address] [place] [address] Phone: tel: fax: Referral ID Status Reason Start Date Expiration Date Visits Requested Visits Authorized [id number] Closed Ordering Department To Schedule 03/24/2019 04/23/2020 1 1 NOL OPERATOR Encounter Details Date Type Department Care Team (Late st Contact Info) Description 03/24/2019 Ancillary Orders [place] [place] [address] Abel Steel MD [address] [place] [phone] Pain Social History Tobacco Use Types Packs/Day Years Used Date Smoking Tobacco: Former Cigarettes 0.5 27 0 12/19/1991 - 12/18/2018 Smokeless Tobacco: Current Snuff, Chew Alcohol Use Standard Drinks/Week Comments Yes 0 (1 standard drink = 0.6 oz pur e alcohol) seldom Sex and Gender Information Value Date Recorded Sex Assigned at Not on file Legal Sex Male 5:24 AM ETHANOL OPERATOR Gender Identity Not on file Sexual Orientation Not on file documented as of this encounter Plan of Treatment Not on file documented as of this encounter Results * US GUIDE NEEDLE PLACEMENT (03/27/2019 1:58 PM ETHANOL OPERATOR) Anatomical Region Laterality Modality Ultrasound Narrative 03/27/2019 4:09 PM ETHANOL OPERATOR The anatomy was visualized under ultrasound. The [...] pain documented in this encounter Care Teams Stitching Department Supervisor Relationship Specialty Start Date End Date Jim Dykes MD [address] [place] [address] PCP - General Family Practice 04/14/18 documented as of this encounter
--- OUTSIDE RECORDS SUMMARY | 2025-02-25 09:55 | XMS_ITS | Encounter Summary ---
Author Organization [facility] Address [address] [place] [address] Care Team Providers Care Wrapper Cashier Name Role Phone Jim Dykes MD Primary Care Provider [phone] Encounter Details Date Type Department Care Team (Latest Contact Info) Description 01/15/2000 Outpatient Historical [facility] [address] [place] [address] Valdez Ochoa NO ADDRESS ON FILE Meralgia paresthetica (Primary Dx); Postconcussion syndrome; Migraine without aura, without mention of intractable migraine without mention of status migrainosus Social History Tobacco Use Types Packs/Day Years Used Date Smoking Tobacco: Never Assessed Sex and Gender Information Value Date Recorded Sex Assigned at Not on file 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
--- OUTSIDE RECORDS SUMMARY | 2025-02-25 09:55 | XMS_ITS | Encounter Summary ---
Author Organization [facility] Address [address] [place] [address] Care Team Providers Care Box Spinner Name Role Phone Jim Dykes MD Primary Care Provider [phone] Encounter Details Date Type Department Care Team (Latest Contact Info) Description 09/05/1998 Outpatient Historical [facility] Paul Blum M [address] [place] [address] Other specified aftercare following surgery (Primary Dx) Social History Tobacco Use Types Packs/Day Years Used Date Smoking Tobacco: Never Assessed Sex and Gender Information Value Date Recorded Sex Assigned at Not on file Legal Sex Male 5:24 AM PREFABRICATOR Gender Identity Not on file Sexual Orientation Not on file documented as of this encounter Plan of Treatment Not on file documented as of this encounter Visit Diagnoses Diagnosis Other specified aftercare following surgery- Primary documented in this encounter Care Teams Box Spinner Relationship Specialty Start Date End Date Jim Dykes MD [address] [facility] [place] [facility] [place] [address] PCP - General Family Practice 04/14/18 documented as of this encounter
--- OUTSIDE RECORDS SUMMARY | 2025-02-25 09:55 | XMS_ITS | Encounter Summary ---
Author Organization [facility] Address [address] [place] [address] Care Team Providers Care Historic Clothing And Costume Maker Name Role Phone Jim Dykes MD Primary Care Provider [phone] Encounter Details Date Type Department Care Team (Latest Contact Info) Description 06/18/1998 Outpatient Historical [facility] Paul Blum M [address] [place] [address] Other specified aftercare following surgery (Primary Dx) Social History Tobacco Use Types Packs/Day Years Used Date Smoking Tobacco: Never Assessed Sex and Gender Information Value Date Recorded Sex Assigned at Not on file Legal Sex Male 5:24 AM NUT FEEDER Gender Identity Not on file Sexual Orientation Not on file documented as of this encounter Plan of Treatment Not on file documented as of this encounter Visit Diagnoses Diagnosis Other specified aftercare following surgery- Primary documented in this encounter Care Teams Historic Clothing And Costume Maker Relationship Specialty Start Date End Date Jim Dykes MD [address] [facility] [place] [facility] [place] [address] PCP - General Family Practice 04/14/18 documented as of this encounter
--- OUTSIDE RECORDS SUMMARY | 2025-02-25 09:55 | XMS_ITS | Encounter Summary ---
Author Organization [facility] Address [address] [place] [address] Care Team Providers Care Diversified Crops Supervisor Name Role Phone Jim Dykes MD Primary Care Provider Encounter Details Date Type Department Care Team (Latest Contact Info) Description 11/16/2000 Outpatient Historical [facility]- [place] [address] [facility] [address] [place] [address] Robert Eastman Jr., MD [address] [facility] [place] [address] Major depressive disorder, recurrent episode, severe, without mention of psychotic behavior (CMS/HCC) (Primary Dx) Social History Tobacco Use Types Packs/Day Years Used Date Smoking Tobacco: Never Assessed Sex and Gender Information Value Date Recorded Sex Assigned at Not on file Legal Sex Male 5:24 AM ETL INFORMATICA ARCHITECT Gender Identity Not on file Sexual Orientation Not on file documented as of this encounter Plan of Treatment Not on file documented as of this encounter Visit Diagnoses Diagnosis Major depressive disorder, recurrent episode, severe, without mention of psychotic behavior (CMS/HCC)- Primary Major depressive disorder, recurrent episode, severe, without mention of psychotic behavior documented in this encounter Care Teams Diversified Crops Supervisor Relationship Specialty Start Date End Date Jim Dykes MD [place] [phone] PCP - General Family Practice 04/14/18 documented as of this encounter
--- OUTSIDE RECORDS SUMMARY | 2025-02-25 09:55 | XMS_ITS | Encounter Summary ---
Author Organization [facility] Address [address] Wheeler: [place] [address] Care Team Providers Care Project Associate Name Role Phone Jim Dykes MD Primary Care Provider [phone] Encounter Details Date Type Department Care Team (Late st Contact Info) Description 09/08/1999 Outpatient Historical Paul Blum [address] [place] [address] Social History Tobacco Use Types Packs/Day Years Used Date Smoking Tobacco: Never Assessed Sex and Gender Information Value Date Recorded Sex Assigned at Not on file Legal Sex Male 5:24 AM CRM SOLUTION ARCHITECT Gender Identity Not on file Sexual Orientation Not on file documented as of this encounter Plan of Treatment Not on file documented as of this encounter Visit Diagnoses Not on filedocumented in this encounter Care Teams Project Associate Relationship Specialty Start Date End Date Jim Dykes MD [address] [facility] & [place] [address] PCP - General Family Practice 04/14/18 documented as of this encounter
--- OUTSIDE RECORDS SUMMARY | 2025-02-25 09:55 | XMS_ITS | Clinical Summary ---
Author Organization [facility] Address [address] [place] [address] Care Team Providers Care Strand Galvanizer Name Role Phone Avtar Castillo MD Primary Care Provider [phone] Allergies Active Allergy Reactions Criticality Noted Date [...] Date Diagnosed Date Perirectal abscess 04/22/2023 Sepsis 04/20/2023 Family History Relation Status Comments Father Mother Social History Tobacco Use Types Packs/Day Years Used Date Smoking Tobacco: Every Day Cigarettes 1 30 Smokeless Tobacco: Never Alcohol Use Standard Drinks/Week Comments Yes 0 (1 standard drink = 0.6 oz pur e alcohol) 6 pack a week [facility] Utilities Answer Date Recorded In the past 12 months has [facility] [employer], gas, oil, or water [employer] threatened to shut off services in your [...] and heating? Not hard at all 04/21/2023 [facility] - Occupational Stress Questionnaire Answer Date [...] place to sleep or slept in a [place] health care facility (including now)? No 04/21/2023 Sex and Gender Information Value Date Recorded Sex Assigned at Not on file Legal Sex Male 2:55 PM MEAT PROCESSING CENTER MANAGER Gender Identity Not on file Sexual Orientation Not on file Last Filed Vital Signs Vital Sign Reading Time Taken Comments Blood Pressure 130/59 04/24/2023 7:48 AM MEAT PROCESSING CENTER MANAGER Pulse 62 04/24/2023 7:48 AM MEAT PROCESSING CENTER MANAGER Temperature 36.5 C (97.7 F) 04/24/2023 7:48 AM MEAT PROCESSING CENTER MANAGER Respiratory Rate 17 04/24/2023 7:48 AM MEAT PROCESSING CENTER MANAGER Oxygen Saturation 97% 04/24/2023 7:48 AM MEAT PROCESSING CENTER MANAGER Inhaled Oxygen Concentration - - Weight 150.1 kg (330 lb 14.6 oz) 04/23/2023 4:20 AM MEAT PROCESSING CENTER MANAGER Height 188 cm (6' 2) 04/20/2023 3:28 PM MEAT PROCESSING CENTER MANAGER Body Mass Index 42.49 04/20/2023 3:28 PM MEAT PROCESSING CENTER MANAGER Plan of Treatment Health Maintenance Due Date Last Done Comments Colorectal Cancer Screening Colonoscopy (10 Years) 1976 Annual Physical 1979 Hepatitis C 1994 DTaP, Tdap and Td Vaccines ( 1 - Tdap) 1995 Hepatitis B Vaccines (1 of 3 - 19+ 3-dose series) 1995 Pneumococcal Vaccine: Pediatrics (0 to 5 Years) and At-Risk Patients (6 to 49 Years) (2 of 2 - PPSV23, PCV20, or PCV21) 05/03/2018 03/08/2018 COVID-19 Vaccine ( - 2024-2 6 season) 2024 Influenza Adult (#1) 2025 02/19/2022, 02/22/2018 Hepatitis A Vaccines Aged Out No long er eligible based on patient's age to complete this topic Meningococcal B Vaccine Aged Out No l onger eligible based on patient's age to complete this topic Meningococcal Vaccine Aged Out No tova kim eligible based on patient's age to complete this topic RSV Immunizations Under 20 Months Aged Out No longer eligible b ased on patient's age to complete this topic Insurance MEDICARE [facility] Advance Directives * Full Code (Latest Code Status on File) Date Activated Date Inactivated Comments 04/20/2023 8:34 PM 04/24/2023 4:42 PM Care Teams Strand Galvanizer Relationship Specialty Start Date End Date Avtar Castillo MD [address] [place] [address] PCP - General FAMILY PRACTICE 04/21/23
--- OUTSIDE RECORDS SUMMARY | 2025-02-25 09:55 | XMS_ITS | Encounter Summary ---
Author Organization [facility] Address [address] [place] [address] Care Team Providers Care Weight Inspector Name Role Phone Jim Dykes MD Primary Care Provider [phone] Encounter Details Date Type Department Care Team (Latest Contact Info) Description 11/03/2000 Outpatient Historical [facility] Ear, Nose and Throat [address] [place] [address] Lauri Camacho MD NO ADDRESS ON FILE Follow-up examination, following unspecified surgery (Primary Dx) Social History Tobacco Use Types Packs/Day Years Used Date Smoking Tobacco: Never Assessed Sex and Gender Information Value Date Recorded Sex Assigned at Not on file Legal Sex Male 5:24 AM RESPIRATORY CLINICIAN Gender Identity Not on file Sexual Orientation Not on file documented as of this encounter Plan of Treatment Not on file documented as of this encounter Visit Diagnoses Diagnosis Follow-up examination, following unspecified surgery- Primary documented in this encounter Care Teams Weight Inspector Relationship Specialty Start Date End Date Jim Dykes MD [address] [facility] [place] & [place] [phone] PCP - General Family Practice 04/14/18 documented as of this encounter
--- OUTSIDE RECORDS SUMMARY | 2025-02-25 09:55 | XMS_ITS | Encounter Summary ---
Author Organization [facility] Address [address] [place] [address] Care Team Providers Care Corporation Secretary Name Role Phone Jim Dykes MD Primary Care Provider [phone] Encounter Details Date Type Department Care Team (Latest Contact Info) Description 05/25/2000 Outpatient [facility] Psychiatry- [place] [address] [place] [address] Robert Eastman Jr., MD [address] [place] [address] Major depressive disorder, recurrent episode, unspecified (CMS/HCC) (Primary Dx) Social History Tobacco Use Types Packs/Day Years Used Date Smoking Tobacco: Never Assessed Sex and Gender Information Value Date Recorded Sex Assigned at Not on file Legal Sex Male 5:24 AM SPECIAL EDUCATION PARAEDUCATOR Gender Identity Not on file Sexual Orientation Not on file documented as of this encounter Plan of Treatment Not on file documented as of this encounter Visit Diagnoses Diagnosis Major depressive disorder, recurrent episode, unspecified (CMS/HCC)- Primary Major depressive disorder, recurrent episode, unspecified documented in this encounter Care Teams Corporation Secretary Relationship Specialty Start Date End Date Jim Dykes MD [address] [facility] [facility] [place] & [place] [address] PCP - General Family Practice 04/14/18 documented as of this encounter
--- OUTSIDE RECORDS SUMMARY | 2025-02-25 09:55 | XMS_ITS | Encounter Summary ---
Author Organization [facility] Address [address] [place] [address] Care Team Providers Care I&C Tech Name Role Phone Jim Dykes MD Primary Care Provider [phone] Encounter Details Date Type Department Care Team (Latest Contact Info) Description 08/05/1999 Outpatient Historical [facility] [address] [place] [address] Abel Dye MD [address] [place] [phone] Pain in joint, upper arm (Primary Dx) Social History Tobacco Use Types Packs/Day Years Used Date Smoking Tobacco: Never Assessed Sex and Gender Information Value Date Recorded Sex Assigned at Not on file Legal Sex Male 5:24 AM NAUTICAL INSTRUMENT MECHANIC Gender Identity Not on file Sexual Orientation Not on file documented as of this encounter Plan of Treatment Not on file documented as of this encounter Visit Diagnoses Diagnosis Pain in joint, upper arm- Primary documented in this encounter Care Teams I&C Tech Relationship Specialty Start Date End Date Jim Dykes MD [address] [facility] & [place] [phone] PCP - General Family Practice 04/14/18 documented as of this encounter
--- OUTSIDE RECORDS SUMMARY | 2025-02-25 09:55 | XMS_ITS | Clinical Summary ---
Author Organization [facility] Address [address] [place] [address] Phone Care Team Providers Care Urban Designer Name Role Phone Jim Dykes MD Primary Care Provider [phone] Allergies Active Allergy Reactions Criticality Noted Date [...] Unknown High 03/11/2018 Warfarin Unknown 03/17/2018 Medications DULoxetine (CYMBALTA) 60 mg Capsule, Delayed Release(E.C.) Take 60 mg by mouth 2 times daily. Active ipratropium-albu terol (DUONEB) 0.5 mg-3 mg(2.5 mg base)/3 mL Solution for Nebulization Take 3 mL by inhalation every 4 hours as needed for Shortness of Breath or Wheezing. 8 Active metFORMIN (GLUCOPHAGE) 500 mg tablet Take 500 mg by mouth 2 times daily with meals. Active lisinopril (PRINIVIL) 10 mg tablet Take 1 Tablet (10 mg) by mouth daily. 30 Tablet 1 9 Active fexofenadine (SANTIAGO) 180 mg tablet Take 180 mg by mouth daily. Active albuterol HFA 90 mcg inhaler Take 2 Puffs by inhalation every 6 hours as needed for Shortness of Breath. Active TURMERIC ORAL Take 1 Capsule by mouth daily small engine mechanic. Active cholecalciferol, Vitamin D3, 5,000 unit Capsule Take 5,000 Units by mouth daily at bedtime. Active KRILL OIL ORAL Take 1 Tablet by mouth 3 times daily. Active vit calc,iron,folic ( VITAMIN ORAL) Take 1 Each by mouth 2 times daily Gummies . Active hydroCHLOROthiaz nicolas 25 mg tablet Take 1 Tablet by mouth daily. 1 9 Active glimepiride (AMARYL) 4 mg tablet 3 9 Active LYRICA 75 mg Capsule 2 times daily. 2 9 Active Lidocaine 4 % Adhesive Patch, Medicated Apply daily as needed 30 Patch 2 9 Active naloxone (NARCAN) 4 mg/spray [place], Non-Aerosol EMERGENCY USE ONLY: Administer 1 spray (4 mg) in one nostril one time. May repeat in alternating nostrils every 2-3 min until responsive or EMS arrives. 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 04/24/2020 Methamphetamine use disorder, severe 04/24/2020 R/O PTSD (post-traumatic stress disorder) 2020 Chronic prescription benzodiazepine use 04/24/19 21 Chronic prescription opiate use 04/24/2020 Post-traumatic osteoarthritis of multiple joints 04/24/2020 Cannabis abuse, continuous use 04/24/2020 Benign hypertension 04/24/2020 Type 2 diabetes mellitus wit h hyperglycemia, without long-term current use of insulin 04/24/2020 Alcohol use disorder, moderate, dependence 04/24 Lumbar post-laminectomy syndrome 01/18/2019 Encounter for long-term (current) use of medicat ions 01/18/2019 Chronic, continuous use of opioids 01/18/2019 History of lumbar surgery 12/20/2018 Chronic pain syndrome 12/20/2018 Primary osteoarthritis of left hip 12/20/2018 S/P lumbar laminectomy 12/20/2018 DDD (degenerative [...] Depressive disorder 03/18/2018 Substance induced mood disorder Psychosis Anxiety Diabetes mellitus Resolved Problems Problem Noted Date Diagnosed Date Resolved Date Elevated serum creatinine 04/24/2020 Acute respiratory failure 03/11/2018 Intentional drug overdose 03/11/2018 Aspiration pneumonia 03/11/2018 019 Drug overdose, intentional s elf-harm, initial encounter 07/27/2018 Shock circulatory 03/15/2018 Immunizations Immunization Administration Dates Next Due Influenza [...] - 12/18/2018 Smokeless Tobacco: Current Snuff, Chew Tobacco Cessation:Ready to Q uit: No Alcohol Use Standard Drinks/Week Comments Yes 27 (1 standard drink = 0.6 oz pu re alcohol) seldom Sex and Gender Information Value Date Recorded Sex Assigned at Not on file Legal Sex Male 5:24 AM POST EXCHANGE MANAGER Gender Identity Not on file Sexual Orientation Not on file Last Filed Vital Signs Vital Sign Reading Time Taken Comments Blood Pressure 126/92 06/19/2020 12:28 PM POST EXCHANGE MANAGER Pulse 104 06/19/2020 12:28 PM POST EXCHANGE MANAGER Temperature 36.8 C (98.3 F) 04/26/2020 7:20 PM POST EXCHANGE MANAGER Respiratory Rate 15 05/14/2020 8:01 AM POST EXCHANGE MANAGER Oxygen Saturation 95% 06/19/2020 12:28 PM POST EXCHANGE MANAGER Inhaled Oxygen Concentration - - Weight 150.1 kg (331 lb) 06/19/2020 12:28 PM POST EXCHANGE MANAGER Height 188 cm (6' 2) 06/19/2020 12:28 PM POST EXCHANGE MANAGER Body Mass Index 42.5 06/19/2020 12:28 PM POST EXCHANGE MANAGER Plan of Treatment Health Maintenance Due Date Last Done Comments DIABETES ANNUAL FOOT EXAM 1994 DIABETES MICROALBUMIN ANNUAL SCREEN 1994 LDL CHOLESTEROL ANNUAL 1994 DTAP/TDAP/TD VACCINES (1 - Tdap) 1995 HEPATITIS B VACCINES (1 of 3 - 19+ 3-dose series) 1995 DIABETES HBA1C Q 6 MONTHS 01/26/2019 07/27/2018, DIABETES ANNUAL RETINAL EXAM 02/15/2020 02/14/2019 COLORECTAL SCREENING 2021 Colorectal Cancer Screening 2021 FIT-DNA Q 3 years 2021 FIT/FOBT Q 1 year 2021 Flex Sig/CT Colonography Q 5 years 2021 INFLUENZA VACCINE (#1) 2024 03/09/2019, 2017 Medical Devices Implanted Type Area Videotape Recording Engineer Device Identifier Shelf Expiration Date Model / Serial / Lot Hemostatic Surgiflo 8ml W/Thrombin 2994 - [id number] Implanted:Qty: 1 on 08/08/2018 by Alka Leong MD at [facility] Hemostatic N/A: Spine Lumbar [employer] 09/17/2019 2994 / / [id number] Hemostatic Surgifoam Sz12-7 1971 - [id number] Implanted:Qty: 1 on 08/08/2018 by Alka Leong MD at [facility] Hemostatic N/A: Spine Lumbar [employer]- [employer] 05/12/2022 1972 / / [id number] Hemostatic Surgiflo 8ml W/Thrombin 2994 - Sna Implanted:Qty: 1 on 08/29/2018 by Alka Leong MD at [facility] Hemostatic N/A: Spine Lumbar [employer] 10/17/2019 2994 / NA / [id number] Hemostatic Surgifoam Sz12-7 1971 - Sna Implanted:Qty: 1 on 08/29/2018 by Alka Leong MD at [facility] Hemostatic N/A: Spine Lumbar [employer] 06/29/2022 1972 / NA / [id number] Hemostatic Surgiflo 8ml W/Thrombin 2994 - Sna Implanted:Qty: 1 on 08/29/2018 by Alka Leong MD at [facility] Hemostatic N/A: Spine Lumbar [employer]- [employer] 10/17/2019 2994 / NA / [id number] Duragen Plus [id number] - Sna Implanted:Qty: 1 on 08/29/2018 by Alka Leong MD at [facility] Tissue N/A: Spine Lumbar [employer] 12/17/2020 [id number] / NA / [id number] Procedures Procedure Name Priority Date/Time Associated Diagnosis Comments HEMOGLOBIN A1C Routine 07/27/2018 2:17 PM CDT from Last 3 Months or Most Recently Relevant to Health Maintenance Results * (ABNORMAL) HEMOGLOBIN A1C (07/27/2018 2:17 PM CDT) HEMOGLOBIN A1C 7.8(H) 4.0 - 6.0 % 07/27/2018 2:36 PM CDT [facility] EST. AVG GLUCOSE, A1C 177 mg/dL 07/27/2018 2:36 PM CDT [facility] Blood Venipuncture / Unknown 07/27/2018 2:17 PM CDT 07/27/2018 2:22 PM CDT Narrative [facility] - 07/27/2018 2:36 PM CDT HGB A1C INTERPRETATION NORMAL: <5.7% PRE-DIABETES: 5.7 - 6.4% DIABETES: 6.5% OR GREATER us Rhett Green MD CHEMISTRY ORDERABLES Final Resu lt [facility] #[id number] [address] [place] [address] from Last 3 Months or Most Recently Relevant to Health Maintenance Insurance MEDICARE PART A AND B [place] Advance Directives For more information, please contact: [phone] * Full Code (Latest Code Status on File) Date Activated Date Inactivated Comments 04/23/2020 1:13 PM 04/27/2020 9:53 PM * Full Code Date Activated Date Inactivated Comments 08/29/2018 6:11 PM 09/02/2018 3:58 PM * Full Code Date Activated Date Inactivated Comments 08/08/2018 7:09 PM 08/12/2018 2:24 PM * Full Code Date Activated Date Inactivated Comments 08/08/2018 12:59 PM 08/08/2018 7:08 PM * Full Code Date Activated Date Inactivated Comments 03/15/2018 4:49 PM 03/21/2018 5:53 PM Care Teams Urban Designer Relationship Specialty Start Date End Date [place] [address] [place] [phone] PCP - General Family Practice 04/14/18
--- OUTSIDE RECORDS SUMMARY | 2025-02-25 09:55 | XMS_ITS | Encounter Summary ---
Author Organization [facility] Address [address] [place]: [place] [address] Care Team Providers Care Echo Technologist Name Role Phone Jim Dykes MD Primary Care Provider [phone] Encounter Details Date Type Department Care Team (Latest Contact Info) Description 12/04/1999 Emergency Bud Oakley MD NO ADDRESS ON FILE Social History Tobacco Use Types Packs/Day Years Used Date Smoking Tobacco: Never Assessed Sex and Gender Information Value Date Recorded Sex Assigned at Not on file Legal Sex Male 5:24 AM QUARRY SUPERVISOR OPEN PIT Gender Identity Not on file Sexual Orientation Not on file documented as of this encounter Plan of Treatment Not on file documented as of this encounter Visit Diagnoses Not on filedocumented in this encounter Care Teams Echo Technologist Relationship Specialty Start Date End Date Jim Dykes MD [address] [facility] [place] & [place] [phone] PCP - General Family Practice 04/14/18 documented as of this encounter
--- OUTSIDE RECORDS SUMMARY | 2025-02-25 09:55 | XMS_ITS | Encounter Summary ---
Author Organization [facility] Address [address] [place] [address] Care Team Providers Care Manager Ed Name Role Phone Jim Dykes MD Primary Care Provider Reason for Referral * Radiology Services (Routine) - Closed Specialty Diagnoses / Procedures Referred By Contac t Referred To Contact Orthopedic Surgery Diagnoses Pain Procedures US GUIDE NEEDLE PLACEMENT Abel Steel MD Phone: tel: fax: [facility] [place] [address] [place] [address] Phone: tel: fax: Referral ID Status Reason Start Date Expiration Date Visits Requested Visits Authorized [id number] Closed Performing Department to Schedule 12/29/2019 01/28/2021 1 1 Encounter Details Date Type Department Care Team (Late st Contact Info) Description 12/29/2019 Ancillary Orders [facility] [place] [address] [place] [address] Abel Steel MD [address] [place] [address] Pain Social History Tobacco Use Types Packs/Day Years Used Date Smoking Tobacco: Former Cigarettes 0.5 27 0 12/19/1991 - 12/18/2018 Smokeless Tobacco: Current Snuff, Chew Alcohol Use Standard Drinks/Week Comments Yes 0 (1 standard drink = 0.6 oz pur e alcohol) seldom Sex and Gender Information Value Date Recorded Sex Assigned at Not on file Legal Sex Male 5:24 AM URBAN AND REGIONAL PLANNER Gender Identity Not on file Sexual Orientation Not on file COVID-19 Exposure Response Date Recorded In the last month, have you been in contact with someone who was confirmed or suspected to have Coronavirus / COVID-19? No / Unsure 01/01/2020 12:44 PM CDT documented as of this encounter Plan of Treatment Not on file documented as of this encounter Results * US GUIDE NEEDLE PLACEMENT (01/01/2020 2:26 PM CDT) Anatomical Region Laterality Modality Ultrasound Narrative 01/03/2020 12:43 PM CDT The anatomy was visualized under [...] pain documented in this encounter Care Teams Manager Ed Relationship Specialty Start Date End Date Jim Dykes MD [address] [facility] & [place] [address] PCP - General Family Practice 04/14/18 documented as of this encounter
--- OUTSIDE RECORDS SUMMARY | 2025-02-25 09:55 | XMS_ITS | Encounter Summary ---
Author Organization [facility] Address [address] [place] [address] Care Team Providers Care Rose Grader Name Role Phone Jim Dykes MD Primary Care Provider [phone] Encounter Details Date Type Department Care Team (Latest Contact Info) Description 05/27/1998 Outpatient Historical [facility]ERY Paul Blum M [address] [place] [address] Condyloma acuminatum (Primary Dx) Social History Tobacco Use Types Packs/Day Years Used Date Smoking Tobacco: Never Assessed Sex and Gender Information Value Date Recorded Sex Assigned at Not on file Legal Sex Male 5:24 AM BOX LIDDER Gender Identity Not on file Sexual Orientation Not on file documented as of this encounter Plan of Treatment Not on file documented as of this encounter Visit Diagnoses Diagnosis Condyloma acuminatum- Primary documented in this encounter Care Teams Rose Grader Relationship Specialty Start Date End Date Jim Dykes MD [address] [facility] [place] [facility] [place] [address] PCP - General Family Practice 04/14/18 documented as of this encounter
--- OUTSIDE RECORDS SUMMARY | 2025-02-25 09:56 | XMS_ITS | Encounter Summary ---
Author Organization [facility] Address [address] [place] [address] Care Team Providers Care Weights And Measures Inspector Name Role Phone Jim Dykes MD Primary Care Provider [phone] Encounter Details Date Type Department Care Team (Latest Contact Info) Description 03/25/2005 Outpatient Historical [facility] Gen Spec Surg [place] [address] [place] [address] Bud Wynn MD NO ADDRESS ON FILE CELLULITIS OF BUTTOCK (Primary Dx); STAPHYLOCOCCUS AUREUS Social History Tobacco Use Types Packs/Day Years Used Date Smoking Tobacco: Never Assessed Sex and Gender Information Value Date Recorded Sex Assigned at Not on file Legal Sex Male 5:24 AM SUPERINTENDENT STEVEDORING Gender Identity Not on file Sexual Orientation Not on file documented as of this encounter Plan of Treatment Not on file documented as of this encounter Visit Diagnoses Diagnosis Cellulitis and abscess of buttock- Primary Methicillin susceptible Staphylococcus aureus in conditions classified elsewhere and of unspecified site documented in this encounter Care Teams Weights And Measures Inspector Relationship Specialty Start Date End Date Jim Dykes MD [address] [facility] [place] [phone] PCP - General Family Practice 04/14/18 documented as of this encounter
--- OUTSIDE RECORDS SUMMARY | 2025-02-25 09:56 | XMS_ITS | Encounter Summary ---
Author Organization [facility] Address [address] [place]: [place] [address] Care Team Providers Care Software Requirements Engineer Name Role Phone Jim Dykes MD Primary Care Provider [phone] Encounter Details Date Type Department Care Team (Late st Contact Info) Description 09/01/2000 Outpatient Historical Octavio Johnson, DO [address] [phone] Social History Tobacco Use Types Packs/Day Years Used Date Smoking Tobacco: Never Assessed Sex and Gender Information Value Date Recorded Sex Assigned at Not on file Legal Sex Male 5:24 AM DIRECTOR OF ACQUISITION MARKETING Gender Identity Not on file Sexual Orientation Not on file documented as of this encounter Plan of Treatment Not on file documented as of this encounter Visit Diagnoses Not on filedocumented in this encounter Care Teams Software Requirements Engineer Relationship Specialty Start Date End Date Jim Dykes MD [address] [facility] [place] [address] PCP - General Family Practice 04/14/18 documented as of this encounter
--- OUTSIDE RECORDS SUMMARY | 2025-02-25 09:56 | XMS_ITS | Encounter Summary ---
Author Organization [facility] Address [address] [place] [address] Care Team Providers Care Ranch Hand Livestock Name Role Phone Jim Dykes MD Primary Care Provider [phone] Encounter Details Date Type Department Care Team (Latest Contact Info) Description 06/17/2000 Outpatient Historical [facility] Neurology [address], [address] [place] [address] Valdez Ochoa NO ADDRESS ON FILE Meralgia paresthetica (Primary Dx) Social History Tobacco Use Types Packs/Day Years Used Date Smoking Tobacco: Never Assessed Sex and Gender Information Value Date Recorded Sex Assigned at Not on file Legal Sex Male 5:24 AM MEDICAL TYPIST Gender Identity Not on file Sexual Orientation Not on file documented as of this encounter Plan of Treatment Not on file documented as of this encounter Visit Diagnoses Diagnosis Meralgia paresthetica- Primary documented in this encounter Care Teams Ranch Hand Livestock Relationship Specialty Start Date End Date Jim Dykes MD [address] [facility] [place] & [place] [address] PCP - General Family Practice 04/14/18 documented as of this encounter
--- OUTSIDE RECORDS SUMMARY | 2025-02-25 09:56 | XMS_ITS | Encounter Summary ---
Author Organization [facility] Address [address] [place] [address] Care Team Providers Care Internet Manager Name Role Phone Jim Dykes MD Primary Care Provider [phone] Encounter Details Date Type Department Care Team (Late st Contact Info) Description 09/07/2000 Outpatient Historical [facility] [address] [place] [address] [place] [address] Social History Tobacco Use Types Packs/Day Years Used Date Smoking Tobacco: Never Assessed Sex and Gender Information Value Date Recorded Sex Assigned at Not on file Legal Sex Male 5:24 AM HAND FRETTED INSTRUMENT MAKER Gender Identity Not on file Sexual Orientation Not on file documented as of this encounter Plan of Treatment Not on file documented as of this encounter Visit Diagnoses Not on filedocumented in this encounter Care Teams Internet Manager Relationship Specialty Start Date End Date Jim Dykes MD [address] [facility] & [place] [address] PCP - General Family Practice 04/14/18 documented as of this encounter
--- OUTSIDE RECORDS SUMMARY | 2025-02-25 09:56 | XMS_ITS | Encounter Summary ---
Author Organization [facility] Address [address] Garcian: [place] [address] Care Team Providers Care Gunner'S Mate M Name Role Phone Jim Dykes MD Primary Care Provider [phone] Encounter Details Date Type Department Care Team (Latest Contact Info) Description 09/15/2000 Emergency Bud Oakley MD NO ADDRESS ON FILE Social History Tobacco Use Types Packs/Day Years Used Date Smoking Tobacco: Never Assessed Sex and Gender Information Value Date Recorded Sex Assigned at Not on file Legal Sex Male 5:24 AM GEOGRAPHIC INFORMATION SYSTEM ANALYST Gender Identity Not on file Sexual Orientation Not on file documented as of this encounter Plan of Treatment Not on file documented as of this encounter Visit Diagnoses Not on filedocumented in this encounter Care Teams Gunner'S Mate M Relationship Specialty Start Date End Date Jim Dykes MD [address] [facility] & [place] [address] PCP - General Family Practice 04/14/18 documented as of this encounter
--- OUTSIDE RECORDS SUMMARY | 2025-02-25 09:56 | XMS_ITS | Encounter Summary ---
Author Organization [facility] Address [address] Wheeler: [place] [address] Care Team Providers Care Bleach Range Operator Name Role Phone Jim Dykes MD Primary Care Provider [phone] Encounter Details Date Type Department Care Team (Late st Contact Info) Description 11/16/2000 Inpatient Historical Robert Eastman Jr., MD [address] [place] [address] Social History Tobacco Use Types Packs/Day Years Used Date Smoking Tobacco: Never Assessed Sex and Gender Information Value Date Recorded Sex Assigned at Not on file Legal Sex Male 5:24 AM PRINTED CIRCUIT BOARDS SOLDER LEVELER Gender Identity Not on file Sexual Orientation Not on file documented as of this encounter Plan of Treatment Not on file documented as of this encounter Visit Diagnoses Not on filedocumented in this encounter Care Teams Bleach Range Operator Relationship Specialty Start Date End Date Jim Dykes MD [address] [facility] [place] & [place] [address] PCP - General Family Practice 04/14/18 documented as of this encounter
--- OUTSIDE RECORDS SUMMARY | 2025-02-25 09:56 | XMS_ITS | Encounter Summary ---
Author Organization [facility] Address [address] [place] [address] Care Team Providers Care Certified Forklift Operator Name Role Phone Jim Dykes MD Primary Care Provider [phone] Encounter Details Date Type Department Care Team (Latest Contact Info) Description 09/17/2000 Outpatient Historical [facility] Ear, Nose and Throat [address] [place] [address] [place] [address] Lauri Camacho MD NO ADDRESS ON FILE Deviated nasal septum (Primary Dx); Hypertrophy tonsils; Unspecified sleep apnea Social History Tobacco Use Types Packs/Day Years Used Date Smoking Tobacco: Never Assessed Sex and Gender Information Value Date Recorded Sex Assigned at Not on file Legal Sex Male 5:24 AM SR. PAYROLL MANAGER Gender Identity Not on file Sexual Orientation Not on file documented as of this encounter Plan of Treatment Not on file documented as of this encounter Visit Diagnoses Diagnosis Deviated nasal septum- Primary Hypertrophy tonsils Hypertrophy of tonsils alone Unspecified sleep apnea documented in this encounter Care Teams Certified Forklift Operator Relationship Specialty Start Date End Date Jim Dykes MD [address] [facility] & [place] [phone] PCP - General Family Practice 04/14/18 documented as of this encounter
--- OUTSIDE RECORDS SUMMARY | 2025-02-25 09:56 | XMS_ITS | Encounter Summary ---
Author Organization [facility] Address [address] Wheeler: [place] [address] Care Team Providers Care Technology Resource Teacher Name Role Phone Jim Dykes MD Primary Care Provider Encounter Details Date Type Department Care Team (Late st Contact Info) Description 10/11/2000 Outpatient Historical Octavio Johnson, DO [address] [phone] Social History Tobacco Use Types Packs/Day Years Used Date Smoking Tobacco: Never Assessed Sex and Gender Information Value Date Recorded Sex Assigned at Not on file Legal Sex Male 5:24 AM TIP OUT WORKER Gender Identity Not on file Sexual Orientation Not on file documented as of this encounter Plan of Treatment Not on file documented as of this encounter Visit Diagnoses Not on filedocumented in this encounter Care Teams Technology Resource Teacher Relationship Specialty Start Date End Date Jim Dykes MD [address] [facility] [place] [facility] [place] [address] PCP - General Family Practice 04/14/18 documented as of this encounter
--- OUTSIDE RECORDS SUMMARY | 2025-02-25 09:56 | XMS_ITS | Encounter Summary ---
Author Organization [facility] Address [address] [place] [address] Care Team Providers Care Refueler Name Role Phone Jim Dykes MD Primary Care Provider [phone] Encounter Details Date Type Department Care Team (Late st Contact Info) Description 09/01/[address] [facility] [address] [place] [address] [place] [address] Social History Tobacco Use Types Packs/Day Years Used Date Smoking Tobacco: Never Assessed Sex and Gender Information Value Date Recorded Sex Assigned at Not on file Legal Sex Male 5:24 AM COMMISSARY ASSISTANT Gender Identity Not on file Sexual Orientation Not on file documented as of this encounter Plan of Treatment Not on file documented as of this encounter Visit Diagnoses Not on filedocumented in this encounter Care Teams Refueler Relationship Specialty Start Date End Date Jim Dykes MD [address] [facility] [place] [place] [address] PCP - General Family Practice 04/14/18 documented as of this encounter
--- OUTSIDE RECORDS SUMMARY | 2025-02-25 09:56 | XMS_ITS | Encounter Summary ---
Author Organization [facility] Address [address] Wheeler: [place] [address] Care Team Providers Care Social Media Job Titles Name Role Phone Jim Dykes MD Primary Care Provider [phone] Encounter Details Date Type Department Care Team (Late st Contact Info) Description 09/07/2000 Outpatient Historical Octavio Johnson, DO [address] [phone] Social History Tobacco Use Types Packs/Day Years Used Date Smoking Tobacco: Never Assessed Sex and Gender Information Value Date Recorded Sex Assigned at Not on file Legal Sex Male 5:24 AM FAMILY HEALTH NURSE PRACTITIONER Gender Identity Not on file Sexual Orientation Not on file documented as of this encounter Plan of Treatment Not on file documented as of this encounter Visit Diagnoses Not on filedocumented in this encounter Care Teams Social Media Job Titles Relationship Specialty Start Date End Date Jim Dykes MD [address] [facility] [place] [address] PCP - General Family Practice 04/14/18 documented as of this encounter
--- OUTSIDE RECORDS SUMMARY | 2025-02-25 09:56 | XMS_ITS | Encounter Summary ---
Author Organization [facility] Address [address] 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
--- OUTSIDE RECORDS SUMMARY | 2025-02-25 09:56 | XMS_ITS | Encounter Summary ---
Author Organization [facility] Address [address] [place] [address] Care Team Providers Care Hedis Nurse Name Role Phone Jim Dykes MD Primary Care Provider [phone] Encounter Details Date Type Department Care Team (Latest Contact Info) Description 07/28/2000 Outpatient [facility] Psychiatry- [place] [address] [place] [address] Robert Eastman Jr., MD [address] [facility] [place] [address] Major depressive disorder, recurrent episode, mild (Primary Dx) Social History Tobacco Use Types Packs/Day Years Used Date Smoking Tobacco: Never Assessed Sex and Gender Information Value Date Recorded Sex Assigned at Not on file 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 [place] [address] PCP - General Family Practice 04/14/18 documented as of this encounter
--- OUTSIDE RECORDS SUMMARY | 2025-02-25 09:56 | XMS_ITS | Clinical Summary ---
Author Organization [facility] [employer] Address [address] [place] [address] Care Team Providers Care Nuisance Wildlife Specialist Name Role Phone Mann Viramontes MD Primary Care Provider [phone] Source Comments [facility] [employer],non-[facility] Affiliates and Associated Physician Practices is amultiple site organization consisting of ambulatory clinics and hospital sitesin [place], [place]. This disclosure is being madepursuant to the Care Everywhere program and may not contain all information available regarding this patient. Last updated 18.[facility] [employer] Allergies Active Allergy Reactions Criticality Noted Date [...] Diagnosed Date Arthritis of left hip 09/30/2021 Encounters Date Type Department Care Team Description 02/01/2025 Travel from Last 3 Months Family History Medical History Relation Name Comments [...] 09/30/2021 6:50 AM CDT Plan of Treatment Upcoming Encounters Date Type Department Care Team (Latest Contact Info) Description 03/05/2025 10:00 AM MANAGER COMMUNITY OUTREACH Appointment [facility] PREAD[facility]ION TESTING [address] [address] 03/13/2025 11:32 AM MANAGER COMMUNITY OUTREACH Hospital Encounter [facility] [place] [address] [address] [place] [address] [place] [address] Surgery General 03/13/2025 11:32 AM MANAGER COMMUNITY OUTREACH - 03/13/2025 1:56 PM MANAGER COMMUNITY OUTREACH Surgery [facility] [place] [address] [address] [place] [address] [place] [address] ROBOTIC ASSISTED ARTHROPLASTY HIP Scheduled Procedures Name Priority Associated Diagnoses Date/Ti tx ROBOTIC ASSISTED ARTHROPLAST Y HIP 03/13/2025 11:32 AM MANAGER COMMUNITY OUTREACH Health Maintenance Due Date Last Done Comments COLOGUARD (AGES 45-75) - COL ON CA SCREENING 1976 COLON MONITORING 1976 COLONOSCOPY - COLON CA SCREENING 1976 CT COLONOGRAPHY - COLON CA SCREENING 1976 Colorectal Cancer Screening 1976 FIT - COLON CA SCREENING 1976 FLEX SIG - COLON CA SCREENING 1976 MEDICARE AWV 12 MONTHS 1976 HIV SCREENING 1991 HEPATITIS C SCREENING 04/11/1994 DTAP/TDAP/TD VACCINES (1 - Tdap) 1995 HEPATITIS B VACCINE (1 of 3 - 19+ 3-dose series) 1995 PNEUMOCOCCAL VACCINE (1 of 2 - PCV) 1995 DEPRESSION SCREENING 04/19/2024 COVID-19 VACCINE (1 [...] this topic Medical Devices Implanted Type Area Package Line Relief Operator Device Identifier Shelf Expiration Date Model / Serial / Lot Shell Actb 62mm Hip 5 Screw Hl Clstr Implanted:Qty: 1 on 09/30/2021 by Adalid Thompson MD at [facility] Left: Hip [employer] 01/29/2026 702-04- 62G / / [id number] Liner Actb Mdm G 48mm Cocr Hip 28mm Fem Implanted:Qty: 1 on 09/30/2021 by Adalid Thompson MD at [facility] Left: Hip [employer] 12/17/2025 626-00- 48G / / [id number] Stem Fem 111mm Hip 132d 6 41mm Std Ofst Implanted:Qty: 1 on 09/30/2021 by Adalid Thompson MD at [facility] Left: Hip [employer] 06/29/2026 6720-06 35 / / [id number] Ins Actb 54mm Hip Rstr X3 Adm Mdm Mbl Br Implanted:Qty: 1 on 09/30/2021 by Adalid Thompson MD at [facility] Left: Hip [employer] 09/07/2025 1236-2- 854 / / [id number] [employer] V40 Femoral Head Implanted:Qty: 1 on 09/30/2021 by Adalid Thompson MD at [facility] Left: Hip [employer] 06/18/2026 6570-0-32 8 / / [id number] Insurance MEDICARE [place] Advance Directives * Full Code (Latest Code Status on File) Date Activated Date Inactivated Comments 09/30/2021 12:59 PM 10/02/2021 12:23 PM Care Teams Nuisance Wildlife Specialist Relationship Specialty Start Date End Date Mann Viramontes MD [address] [place] [address] PCP - General Family Medicine 09/08/21
--- OUTSIDE RECORDS SUMMARY | 2025-02-25 09:56 | XMS_ITS | Encounter Summary ---
Author Organization [facility] Address [address] 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
--- OUTSIDE RECORDS SUMMARY | 2025-02-25 09:56 | XMS_ITS | Encounter Summary ---
Author Organization [facility] Address [address] [place] [address] Care Team Providers Care Manufacturing Teacher Name Role Phone Jim Dykes MD Primary Care Provider Encounter Details Date Type Department Care Team (Late st Contact Info) Description 04/10/2005 Outpatient Historical [facility] Infectious Disease 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
--- OUTSIDE RECORDS SUMMARY | 2025-02-25 09:56 | XMS_ITS | Encounter Summary ---
Author Organization [facility] Address [address] [place] [address] Care Team Providers Care Railcar Foreman Name Role Phone Jim Dykes MD Primary Care Provider [phone] Reason for Referral * Radiology Services (Routine) - Closed Specialty Diagnoses / Procedures Referred By Contac t Referred To Contact Orthopedic Surgery Diagnoses Pain Procedures US GUIDE NEEDLE PLACEMENT Abel Steel MD Phone: tel: fax: [facility] [place] [address] [place] [address] Phone: tel: fax: Referral ID Status Reason Start Date Expiration Date Visits Requested Visits Authorized [id number] Closed Performing Department to Schedule 03/28/2020 04/28/2021 1 1 INE SET UP Encounter Details Date Type Department Care Team (Late st Contact Info) Description 03/28/2020 Ancillary Orders [place] [address] [place] [address] Abel Steel MD [address] [place] [address] Pain Social History Tobacco Use Types Packs/Day Years Used Date Smoking Tobacco: Former Cigarettes 0.5 27 0 12/19/1991 - 12/18/2018 Smokeless Tobacco: Current Snuff, Chew Alcohol Use Standard Drinks/Week Comments Yes 0 (1 standard drink = 0.6 oz pur e alcohol) seldom Sex and Gender Information Value Date Recorded Sex Assigned at Not on file Legal Sex Male 5:24 AM MACHINE SET UP Gender Identity Not on file Sexual Orientation Not on file COVID-19 Exposure Response Date Recorded In the last month, have you been in contact with someone who was confirmed or suspected to have Coronavirus / COVID-19? No / Unsure 03/21/2020 1:23 PM MACHINE SET UP documented as of this encounter Plan of Treatment Scheduled Orders Name Type Priority Associated Diagnoses Orde r Schedule US GUIDE NEEDLE PLACEMENT Imaging Routine Pain 1 Occurrences starting 03/28/2020 until 03/28/2021 documented as of this encounter Visit Diagnoses Diagnosis Pain Generalized pain documented in this encounter Care Teams Railcar Foreman Relationship Specialty Start Date End Date Jim Dykes MD [address] [facility] [place] & [place] [address] PCP - General Family Practice 04/14/18 documented as of this encounter
--- OUTSIDE RECORDS SUMMARY | 2025-02-25 09:56 | XMS_ITS | Encounter Summary ---
Author Organization [facility] Address [address] [place] [address] Care Team Providers Care Cvt Tech Name Role Phone Jim Dykes MD Primary Care Provider [phone] Encounter Details Date Type Department Care Team (Latest Contact Info) Description 03/04/2005 Outpatient Historical [facility] Gen Spec Surg [place] 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 [place] [facility] & [place] [address] PCP - General Family Practice 04/14/18 documented as of this encounter
--- OUTSIDE RECORDS SUMMARY | 2025-02-25 09:56 | XMS_ITS | Encounter Summary ---
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 Gender Identity Not on file Sexual Orientation Not on file documented as of this encounter Plan of Treatment Not on file documented as of this encounter Procedures Procedure Name Priority Date/Time Associated Diagnosis Comments CREATININE Routine 02/13/2005 8:18 AM CDT CBC WITH DIFFERENTIAL Routine 02/13/2005 4:13 AM CDT CBC WITH DIFFERENTIAL Routine 02/12/2005 4:19 AM CDT URINALYSIS MICROSCOPY ONLY Routine 02/11/2005 12:25 AM CDT CBC WITH DIFFERENTIAL Routine 02/11/2005 12:25 AM CDT URINALYSIS W/REFLEX MICROSCOPIC Routine 02/11/2005 12:25 AM CDT COMPREHENSIVE METABOLIC PANEL Routine 02/11/2005 12:25 AM CDT documented in this encounter Results * CREATININE (02/13/2005 8:18 AM CDT) CREATININE 0.8 0.7 - 1.5 mg/dL INTERFACE SYSTEM 02/13/2005 8:18 AM CDT us Bud Wynn MD CHEMISTRY ORDERABLES Fin al Result INTERFACE SYSTEM Refer to clinic/hospital department * (ABNORMAL) CBC WITH DIFFERENTIAL (02/13/2005 4:13 AM CDT) WBC 14.7(H) 4.5 - 11.0 K/ul INTERFACE SYSTEM RBC 4.11(L) 4.60 - 6.20 Mil/ul INTERFACE SYSTEM HEMOGLOBIN 12.6(L) 14.0 - 18.0 g/dL INTERFACE SYSTEM HEMATOCRIT 37.6(L) 41.0 - 53.0 % INTERFACE SYSTEM MCV 91.5 84.0 - 103.0 Fl INTERFACE SYSTEM MCH 30.7 27.0 - 34.0 pg INTERFACE SYSTEM MCHC 33.5 30.0 - 35.0 g/dL INTERFACE SYSTEM RDW 12.6 11.0 - 14.5 % INTERFACE SYSTEM PLATELETS 246 140 - 440 K/ul INTERFACE SYSTEM MPV 9.6 8.9 - 12.8 Fl INTERFACE SYSTEM NEUTROPHILS 77.2(H) 42.2 - 75.2 % INTERFACE SYSTEM LYMPHOCYTES 12.5(L) 24.0 - 44.0 % INTERFACE SYSTEM MONOCYTES 8.5 2.0 - 10.0 % INTERFACE SYSTEM EOSINOPHILS 1.6 0.0 - 7.0 % INTERFACE SYSTEM BASOPHILS 0.2 0.0 - 1.0 % INTERFACE SYSTEM NEUTROPHIL ABSOLUTE 11.4(H) 2.0 - 8.0 K/uL INTERFACE SYSTEM LYMPHOCYTE ABSOLUTE 1.8 1.2 - 4.0 K/ul INTERFACE SYSTEM MONOCYTE ABSOLUTE 1.3(H) 0.1 - 0.6 K/ul INTERFACE SYSTEM EOSINOPHIL ABSOLUTE 0.2 0.0 - 0.7 K/ul INTERFACE SYSTEM BASOPHILS ABSOLUTE 0.0 0.0 - 0.2 K/ul INTERFACE SYSTEM PERIPHERAL BLOOD SMEAR REVIEW Automated Diff INTERFACE SYSTEM 02/13/2005 4:13 AM CDT us Bud Wynn MD HEMATOLOGY ORDERABLES Fi nal Result INTERFACE SYSTEM Refer to clinic/hospital department * (ABNORMAL) CBC WITH DIFFERENTIAL (02/12/2005 4:19 AM CDT) WBC 19.0(H) 4.5 - 11.0 K/ul INTERFACE SYSTEM RBC 4.71 4.60 - 6.20 Mil/ul INTERFACE SYSTEM HEMOGLOBIN 14.5 14.0 - 18.0 g/dL INTERFACE SYSTEM HEMATOCRIT 43.1 41.0 - 53.0 % INTERFACE SYSTEM MCV 91.5 84.0 - 103.0 Fl INTERFACE SYSTEM MCH 30.8 27.0 - 34.0 pg INTERFACE SYSTEM MCHC 33.6 30.0 - 35.0 g/dL INTERFACE SYSTEM RDW 12.5 11.0 - 14.5 % INTERFACE SYSTEM PLATELETS 273 140 - 440 K/ul INTERFACE SYSTEM MPV 10.1 8.9 - 12.8 Fl INTERFACE SYSTEM NEUTROPHILS 81.0(H) 42.2 - 75.2 % INTERFACE SYSTEM LYMPHOCYTES 10.8(L) 24.0 - 44.0 % INTERFACE SYSTEM MONOCYTES 7.3 2.0 - 10.0 % INTERFACE SYSTEM EOSINOPHILS 0.8 0.0 - 7.0 % INTERFACE SYSTEM BASOPHILS 0.1 0.0 - 1.0 % INTERFACE SYSTEM NEUTROPHIL ABSOLUTE 15.4(H) 2.0 - 8.0 K/uL INTERFACE SYSTEM LYMPHOCYTE ABSOLUTE 2.1 1.2 - 4.0 K/ul INTERFACE SYSTEM MONOCYTE ABSOLUTE 1.4(H) 0.1 - 0.6 K/ul INTERFACE SYSTEM EOSINOPHIL ABSOLUTE 0.2 0.0 - 0.7 K/ul INTERFACE SYSTEM BASOPHILS ABSOLUTE 0.0 0.0 - 0.2 K/ul INTERFACE SYSTEM PERIPHERAL BLOOD SMEAR REVIEW Automated Diff INTERFACE SYSTEM 02/12/2005 4:19 AM CDT us Bud Wynn MD HEMATOLOGY ORDERABLES Fi nal Result INTERFACE SYSTEM Refer to clinic/hospital department * (ABNORMAL) URINALYSIS (02/11/2005 12:25 AM CDT) COLOR UA Dark Yellow Straw INTERFAC E SYSTEM CLARITY UA SL CLOUDY Clear INTERFACE SYSTEM LEUKOCYTE ESTERASE UA NEGATIVE NEGATIVE INTERFACE SYSTEM NITRITE UA NEGATIVE NEGATIVE INTERFACE SYSTEM PH UA 7.0 5.0 - 9.0 INTERFACE SYSTEM PROTEIN UA NEGATIVE NEGATIVE INTERFACE SYSTEM Comment: As of 04 positive protein results obtained on routine urinalysis will not be confirmed by sulfosalicylic acid (SSA) precipitation. Current methodology for protein detection is highly sensitive for detection of albumin; therefore, confirmation is not necessary. GLUCOSE UA NEGATIVE NEGATIVE INTERFACE SYSTEM KETONES UA NEGATIVE NEGATIVE INTERFACE SYSTEM UROBILINOGEN UA >=8.0(A) 0.2 INTE RFACE SYSTEM BILIRUBIN UA NEGATIVE NEGATIVE INTERFA CE SYSTEM BLOOD UA NEGATIVE NEGATIVE INTERFACE SYSTEM SPECIFIC GRAVITY UA 1.010 1.005 - 1.030 INTERFACE SYSTEM MICRO EXAM Yes(A) No INTERFACE SYSTEM 02/11/2005 12:2 5 AM CDT Tigre Luo DO URINE ORDERABLES Final Resul t Performing Organization Address [facility] Phone Number INTERFACE SYSTEM Refer to clinic/hospital department * (ABNORMAL) URINALYSIS MICROSCOPY ONLY (02/11/2005 12:25 AM CDT) WBC URINE 0-2 0 - 2 INTERFACE SYSTEM RBC UA 0-2 0 - 2 INTERFACE SYSTEM HYALINE CAST None Seen 0 - 2 INTERFA CE SYSTEM BACTERIA UA Few(A) None Seen INTERFAC E SYSTEM 02/11/2005 12:2 5 AM CDT Tigre Luo DO URINE ORDERABLES Final Resul t Performing Organization Address [facility] Phone Number INTERFACE SYSTEM Refer to clinic/hospital department * (ABNORMAL) COMPREHENSIVE METABOLIC PANEL (02/11/2005 12:25 AM CDT) GLUCOSE 105 70 - 110 mg/dL INTERFACE SYSTEM BUN 11 9 - 20 mg/dL INTERFACE SYSTEM CREATININE 0.9 0.7 - 1.5 mg/dL INTERFACE SYSTEM SODIUM 135(L) 136 - 145 mEq/L INTERFACE SYSTEM POTASSIUM 3.8 3.5 - 5.0 mEq/L INTERFACE SYSTEM CO2 25 22 - 32 mmol/l INTERFACE SYSTEM CHLORIDE 94(L) 95 - 110 mEq/L INTERFACE SYSTEM CALCIUM 9.7 8.4 - 10.5 mg/dL INTERFACE SYSTEM ALKALINE PHOSPHATASE 125 38 - 126 IU/L INTERFACE SYSTEM TOTAL PROTEIN 8.0 6.3 - 8.2 g/dL INTERFACE SYSTEM ALBUMIN 4.3 3.5 - 5.0 g/dL INTERFACE SYSTEM AST 36 17 - 59 IU/L INTERFACE SYSTEM ALT 34 21 - 72 IU/L INTERFACE SYSTEM BILIRUBIN TOTAL 1.6(H) 0.2 - 1.4 mg/dL INTERFACE SYSTEM GLOBULIN (CALC) 3.7 2.4 - 3.9 g/dL INTERFACE SYSTEM ANION GAP 20 9 - 20 mEq/L INTERFACE SYSTEM ALBUMIN/GLOBULIN RATIO 1.2 1.0 - 2.3 INTERFACE SYSTEM OSMOLALITY, CALCULATED 278 275 - 295 mOsm/Kg INTERFACE SYSTEM 02/11/2005 12:2 5 AM CDT Tigre Luo DO CHEMISTRY ORDERABLES Final R esult INTERFACE SYSTEM Refer to clinic/hospital department * (ABNORMAL) CBC WITH DIFFERENTIAL (02/11/2005 12:25 AM CDT) WBC 22.5(H) 4.5 - 11.0 K/ul INTERFACE SYSTEM RBC 5.31 4.60 - 6.20 Mil/ul INTERFACE SYSTEM HEMOGLOBIN 16.7 14.0 - 18.0 g/dL INTERFACE SYSTEM HEMATOCRIT 47.5 41.0 - 53.0 % INTERFACE SYSTEM MCV 89.5 84.0 - 103.0 Fl INTERFACE SYSTEM MCH 31.5 27.0 - 34.0 pg INTERFACE SYSTEM MCHC 35.2(H) 30.0 - 35.0 g/dL INTERFACE SYSTEM RDW 12.2 11.0 - 14.5 % INTERFACE SYSTEM PLATELETS 261 140 - 440 K/ul INTERFACE SYSTEM MPV 9.9 8.9 - 12.8 Fl INTERFACE SYSTEM NEUTROPHILS 86.5(H) 42.2 - 75.2 % INTERFACE SYSTEM LYMPHOCYTES 7.1(L) 24.0 - 44.0 % INTERFACE SYSTEM MONOCYTES 6.3 2.0 - 10.0 % INTERFACE SYSTEM BASOPHILS 0.1 0.0 - 1.0 % INTERFACE SYSTEM NEUTROPHIL ABSOLUTE 19.4(H) 2.0 - 8.0 K/uL INTERFACE SYSTEM LYMPHOCYTE ABSOLUTE 1.6 1.2 - 4.0 K/ul INTERFACE SYSTEM MONOCYTE ABSOLUTE 1.4(H) 0.1 - 0.6 K/ul INTERFACE SYSTEM EOSINOPHIL ABSOLUTE 0.0 0.0 - 0.7 K/ul INTERFACE SYSTEM BASOPHILS ABSOLUTE 0.0 0.0 - 0.2 K/ul INTERFACE SYSTEM PERIPHERAL BLOOD SMEAR REVIEW Automated Diff INTERFACE SYSTEM 02/11/2005 12:2 5 AM CDT Tigre Luo DO HEMATOLOGY ORDERABLES Final Result INTERFACE SYSTEM Refer to clinic/hospital department documented in this encounter Visit Diagnoses Diagnosis Cellulitis and abscess of buttock- Primary documented in this encounter Care Teams Stocklayer Relationship Specialty Start Date End Date Jim Dykes MD [address] [place] [id number] PCP - General Family Practice 04/14/18 documented as of this encounter
--- NOTE | 2025-02-25 10:05 | ED.GENADULT ---
HPI - General Adult General Chief complaint: Chest Pain Stated complaint: chest pain Time Seen by Provider: 02/25/25 09:54 History of Present Illness HPI narrative: 41-year-old male with history hypertension, diabetes presents to the emergency department for evaluation for chest pain and that radiates to his left arm. Patient reports chest pain started last night. Patient is in the process of getting medical clearance for a hip replacement. Patient was found to have an abnormal EKG and patient had a stress test 2 days ago at [facility]. patient states that this was abnormal and he has continued to have additional cardiac follow-up. At this time they are comparing his recent cardiac CT with his previous cardiac CT. There has not been any discussion about getting a cardiac catheterization. Patient does have prior history of asthma and previous smoking history. Patient denies any prior history of ACS, VA, cardiac stents. Related Data Home Medications ?Medication ?Instructions ?Recorded ?Confirmed ?Last Taken ?Type clonazepam 1 mg tablet 1 mg PO BID 04/23/21 02/25/25 04/23/21 History Held on 02/25/25. Instructions: Patient no longer taking duloxetine 60 mg capsule,delayed 60 mg PO BID 04/23/21 02/25/25 02/25/25 History release (Cymbalta) empagliflozin 10 mg tablet 10 mg PO DAILY 04/23/21 02/25/25 02/25/25 History (Jardiance) esomeprazole magnesium 20 mg 20 mg PO DAILY 04/23/21 02/25/25 04/23/21 History granules delayed release for susp Held on 02/25/25. Instructions: Patient no longer taking glimepiride 4 mg tablet 2 mg PO HS 04/23/21 02/25/25 02/25/25 History hydrochlorothiazide 25 mg tablet 25 mg PO DAILY 04/23/21 02/25/25 02/25/25 History lisinopril 20 mg tablet 20 mg PO DAILY 04/23/21 02/25/25 02/25/25 History meloxicam 15 mg tablet 15 mg PO DAILY 04/23/21 02/25/25 02/25/25 History metformin 500 mg tablet 1,000 mg PO BID 04/23/21 02/25/25 02/25/25 History pregabalin 100 mg capsule 100 mg PO BID 04/23/21 02/25/25 02/25/25 History tizanidine 4 mg tablet 4 mg PO TID PRN Pain 04/23/21 02/25/25 02/24/25 History aspirin 81 mg tablet 81 mg PO HS 05/18/21 02/25/25 02/25/25 History amoxicillin 875 mg-potassium 1 tablet PO Q12H 02/25/25 02/25/25 02/25/25 History clavulanate 125 mg tablet atorvastatin 20 mg tablet 40 mg PO QPM 02/25/25 02/25/25 02/24/25 History fexofenadine 180 mg tablet 180 mg PO DAILY 02/25/25 02/25/25 02/25/25 History (Kallie Allergy) omeprazole 40 mg capsule,delayed 40 mg PO DAILY 02/25/25 02/25/25 02/25/25 History release oxycodone-acetaminophen 5 mg-325 1 tablet PO Q6H PRN pain 02/25/25 02/25/25 02/25/25 History mg tablet tirzepatide 5 mg/0.5 mL 7.5 mg subcut WEEKLY 02/25/25 02/25/25 02/25/25 History subcutaneous pen injector (Jayden) trazodone 50 mg tablet 50 mg PO HS PRN sleep 02/25/25 02/25/25 02/24/25 History Allergies Allergy/AdvReac Type Severity Reaction Status Date / Time Iodinated Contrast Media Allergy Mild Flushing, Verified 02/25/25 15:20 headache, nausea alprazolam (From Xanax) AdvReac Severe Agitated Verified 02/25/25 15:05 buspirone (From BuSpar) AdvReac Severe Agitated Verified 02/25/25 15:05 gabapentin AdvReac Severe Agitated Verified 02/25/25 15:05 baclofen AdvReac Intermediate Gastrointestinal Verified 02/25/25 15:05 Upset enoxaparin (From Lovenox) AdvReac Intermediate Hives Verified 02/25/25 15:05 prednisone AdvReac Intermediate Hives Verified 02/25/25 15:05 warfarin AdvReac Intermediate Hives Verified 02/25/25 15:05 Review of Systems Review of Systems: All systems reviewed & are unremarkable except as noted in HPI and below PMFSH Past Medical History Medical History (Updated 02/25/25 @ 15:10 by Lorraine Carter APRN) Asthma Former smoker Hip arthritis History of MRSA infection Spinal stenosis Diabetes Hypertension Surgical History Surgical History History of appendectomy History of back surgery Social History Social History Smoking packs per day: 2 Smoking cigarettes per day: 40.0 Years smoked: 30 Smoking pack-years: 60.00 Smoking status: Former smoker Tobacco type: cigarettes Smokeless tobacco user: chewing tobacco Alcohol intake: current Drinks per week: 7 Substance use type: marijuana Other substance usage details: daily Last use: 02/24 Lack of Transportation: No Lack of Food: Never True Current Housing: I Have Housing Concerned About Future Housing: No Difficulty Paying Gas/Electric Bills: No Difficulty Paying for Meds: No Currently Unemployed: No Education: Trade/Vocational Certificate Difficulty w/ Childcare or Family Care: No Spiritual care concerns: No Exam Narrative: APPEARANCE: Uncomfortable appearing HEAD: normocephalic, atraumatic. EYES: PERRLA/EOMI, conjunctivae clear. NOSE: Normal no drainage EARS:TMS clear with good light reflex. THROAT: Pharynx clear, no exudate. NECK: Supple. No adenopathy, no masses. RESPIRATORY: expiratory wheeze CARDIOVASCULAR: Regular rate and rhythm without murmurs rubs or gallops. ABDOMINAL: Soft, nontender, nondistended, normal bowel sounds MUSCULOSKELETAL: Moves all extremities. Strength/ROM intact, No edema, No calf tenderness. NEURO: Alert. Cranial nerves II through XII intact. Good gait. Good coordination SKIN: Warm, dry. Normal Color PSYCHIATRIC: Normal affect/mood. Course Vital Signs Vital signs: Vital Signs Temperature 96.6 F L 02/25/25 09:57 Pulse Rate 101 H 02/25/25 09:57 Respiratory Rate 20 02/25/25 09:57 Blood Pressure 126/100 H 02/25/25 09:57 Pulse Oximetry 98 02/25/25 09:57 Oxygen Delivery Room Air 02/25/25 09:57 Temperature 98.7 F 02/25/25 16:00 Pulse Rate 97 02/25/25 16:00 Respiratory Rate 24 H 02/25/25 16:00 Blood Pressure 143/73 H 02/25/25 16:00 Pulse Oximetry 100 02/25/25 16:00 Oxygen Delivery Room Air 02/25/25 09:57 Medical Decision Making [facility] Narrative Medical decision making narrative: 49-year-old male presents emergency department for evaluation for chest pain has been persistent since last night. Patient does have a previous smoking history, smoked for 30 years and quit about 16 weeks ago. Patient has no prior history COPD. Patient was wheezing on exam initial exam but did feel improved after a breathing treatment. Patient reports he was having chest pain with associated diaphoresis. Patient did have some nonspecific ST changes that were not evident of acute STEMI. Patient's troponins were not elevated. Patient's D-dimer was elevated. Patient's hemoglobin was elevated at 21.3 and patient also does have mild elevation of a his creatinine. Polycythemia may be secondary to hemoconcentration versus undiagnosed COPD. Was negative for pulmonary embolism. Patient is diabetic, hypertension, history of VA, due to patient's risk factors and description of the chest pain he was having patient will be admitted for further cardiac evaluation. I discussed the results with the patient patient was comfortable with plan for admission and further cardiac evaluation. Discussed case with hospitalist. Patient was well-appearing and stable at time of admission. Differential Diagnosis Differential Diagnosis: Pulmonary embolism, pneumonia, COPD, asthma, gastritis, pancreatitis, ACS Vital Signs Vital Signs: Vital Signs Temperature 96.6 F L 02/25/25 09:57 Pulse Rate 101 H 02/25/25 09:57 Respiratory Rate 20 02/25/25 09:57 Blood Pressure 126/100 H 02/25/25 09:57 Pulse Oximetry 98 02/25/25 09:57 Oxygen Delivery Room Air 02/25/25 09:57 Temperature 98.7 F 02/25/25 16:00 Pulse Rate 97 02/25/25 16:00 Respiratory Rate 24 H 02/25/25 16:00 Blood Pressure 143/73 H 02/25/25 16:00 Pulse Oximetry 100 02/25/25 16:00 Oxygen Delivery Room Air 02/25/25 09:57 Lab Data Lab results reviewed: Yes I reviewed the patient's lab results. 02/25/25 11:43 02/25/25 10:34 Labs: Lab Results 02/25/25 02/25/25 02/25/25 Range/Units 10:34 11:43 13:29 WBC 10.8 H 10.2 H (4.5-10.0) K/mm3 RBC 6.77 H 6.79 H (4.6-6.20) M/mm3 Hgb 21.5 H* D 21.3 H* (14.0-18.0) g/dL Hct 61.0 H 61.8 H (42.0-52.0) % MCV 90.1 91.0 (80-100) fl MCH 31.8 31.4 (26-34) pg MCHC 35.2 34.5 (32-36) g/dl RDW 13.3 13.0 (11.5-14.5) % Plt Count 165 157 (150-375) k/mm3 MPV 9.5 9.4 (7.4-10.4) fl Immature Gran % (Auto) 0.3 0.6 H (0-0.5) % Neut % (Auto) 78.0 H 78.7 H (45.5-73.1) % Lymph % (Auto) 12.3 L 11.7 L (18.3-44.2) % Hunt % (Auto) 8.4 8.0 (2.6-8.5) % Eos % (Auto) 0.5 0.4 (0-4.4) % Baso % (Auto) 0.5 0.6 (0.2-1.2) % Lymph # (Auto) 1.33 1.19 (0.9-3.2) K/mm3 Hunt # (Auto) 0.9 H 0.8 H (0.1-0.6) K/mm3 Eos # (Auto) 0.1 0.0 (0-0.3) K/mm3 Baso # (Auto) 0.1 0.1 (0.0-0.1) K/mm3 Abs Immat Gran (auto) 0.03 0.06 H (0.00-0.031) K/mm3 Absolute Neuts (auto) 8.5 H 8.0 H (1.3-6.7) K/mm3 Absolute Nucleated RBC 0.000 0.000 (0.0-0.012) K/mm3 Nucleated RBC % 0.0 0.0 (0.0-0.2) % PT 12.3 (11.1-14.7) Seconds INR 0.9 APTT 27.4 (22.3-36.8) Seconds D-Dimer 0.58 H (<0.48) ug/mL Sodium 129 L (137-145) mmol/L Potassium 4.4 (3.4-5.0) mmol/L Chloride 93 L (98-107) mmol/L Carbon Dioxide 21 L (22-30) mmol/L Anion Gap 15 H (4-12) mmol/L BUN 26 H (9-20) mg/dL Creatinine 1.11 (0.7-1.3) mg/dL Estim Creat Clear Calc 108 ml/min Estimated GFR > 60 (59 - ) Glucose 137 H (65-110) mg/dL Calcium 10.0 (8.4-10.2) mg/dL Total Bilirubin 1.3 (0.2-1.3) mg/dL AST 52 (17-59) U/L ALT 70 H (6-50) U/L Alkaline Phosphatase 83 (38-126) U/L Troponin I < 0.012 < 0.012 (0.000-0.034) ng/mL NT-Pro-B Natriuret Pep < 20 (19.9-100) pg/mL Total Protein 8.7 H (6.3-8.2) g/dL Albumin 5.2 H (3.5-5.1) g/dL Lipase 58 (23-300) U/L Imaging Data Radiologist's impression: Impressions Chest X-Ray 02/25/25 11:13 IMPRESSION: 1. Recommend CT chest. Right midlung lateral opacity not excluded. Chest CTA 02/25/25 12:30 IMPRESSION: 1. No PE identified, nor other acute cardiopulmonary findings. 2. X-ray finding right lung due to chronic rib fracture. Discharge Plan Discharge Clinical Impression: Polycythemia, Dyspnea, COPD exacerbation Chest pain Qualifiers: Chest pain type: unspecified Qualified Code(s): R07.9 - Chest pain, unspecified Patient Disposition: Still a Patient Condition: Stable Quality HEART score for chest pain patients History: slightly suspicious ECG: normal Age: > 45 and < 65 years Risk factors: > or = to 3 risk factors of atherosclerotic disease Troponin: < or = to 1x normal limit Heart score: 3
[2025-02-25] MEDS: ALBUTEROL SULFATE NEB 2.5 MG/3 ML INH 5 MG INHALATION (10:15)
[2025-02-25] MEDS: MORPHINE SULFATE (*CRX) 4 MG/ML INJ IV PUSH (10:17)
--- NOTE | 2025-02-25 10:20 | ECG_ITS ---
Test Date: 2025-02-25 10:27:35 Measurements Intervals [place] Rate: 89 P: 42 [place]: 168 QRS: 20 QRSD: 101 T: 38 QT: 342 QTc: 416 Interpretive Statements SINUS RHYTHM POSSIBLE LEFT ATRIAL ENLARGEMENT [-0.1mV P-WAVE IN V1/V2] ST ELEVATION, PROBABLY EARLY REPOLARIZATION VERSUS INJURY PATTERN ABNORMAL ECG Electronically Signed On 02-25-2025 13:10:16 GROUP PRODUCT MANAGER by Adalid Schwab M.D.
--- NOTE | 2025-02-25 10:36 | PC.NURSE ---
Pt. friend Abraham Stark [phone] will pick pt. up from hospital if d/c.
[2025-02-25 10:42] LABS: Hematocrit 61.0 % (42.0-52.0); Immature Granulocyte Percent A 0.3 % (0-0.5); Lymphocytes Absolute Auto 1.33 K/mm3 (0.9-3.2); Mean Corpuscular HGB Conc 35.2 g/dl (32-36); Mean Corpuscular Hemoglobin 31.8 pg (26-34); Mean Corpuscular Volume 90.1 fl (80-100); Nucleated Red Blood Cells Absolute Auto 0.000 K/mm3 (0.0-0.012); Nucleated Red Blood Cells Perc 0.0 % (0.0-0.2); Platelet Count Result 165 k/mm3 (150-375); Red Blood Count 6.77 M/mm3 (4.6-6.20); White Blood Count 10.8 K/mm3 (4.5-10.0)
[2025-02-25 10:59] LABS: Alanine Aminotransferase 70 U/L (6-50); Albumin Level 5.2 g/dL (3.5-5.1); Alkaline Phosphatase 83 U/L (38-126); Anion Gap 15 mmol/L (4-12); Aspartate Amino Transferase 52 U/L (17-59); Bilirubin,Total 1.3 mg/dL (0.2-1.3); Blood Urea Nitrogen 26 mg/dL (9-20); Calcium 10.0 mg/dL (8.4-10.2); Carbon Dioxide 21 mmol/L (22-30); Chloride 93 mmol/L (98-107); Estimated CRCL calculation 108 ml/min; Estimated Glomerular Filt Rate > 60; Glucose 137 mg/dL (65-110); Lipase 58 U/L (23-300); Potassium 4.4 mmol/L (3.4-5.0); Sodium 129 mmol/L (137-145); Total Protein 8.7 g/dL (6.3-8.2)
--- NOTE | 2025-02-25 11:02 | PC.NURSE ---
lab called to add on d-dimer.
[2025-02-25 11:04] LABS: NT Pro B Type Natriuretic Pept < 20 pg/mL (19.9-100); Troponin I < 0.012 ng/mL (0.000-0.034)
[2025-02-25] MEDS: ASPIRIN 81 MG CHEWABLE TABLET 324 MG PO (11:14)
[2025-02-25 11:27] LABS: Hemoglobin 21.5 g/dL (14.0-18.0)
--- NOTE | 2025-02-25 11:33 | PC.NURSE ---
Phlebotomy at bedside.
[2025-02-25] MEDS: LACTATED RINGERS 1,000 ML 999 ML IV CONT (11:44)
[2025-02-25 11:52] LABS: Hematocrit 61.8 % (42.0-52.0); Immature Granulocyte Percent A 0.6 % (0-0.5); Lymphocytes Absolute Auto 1.19 K/mm3 (0.9-3.2); Mean Corpuscular HGB Conc 34.5 g/dl (32-36); Mean Corpuscular Hemoglobin 31.4 pg (26-34); Mean Corpuscular Volume 91.0 fl (80-100); Nucleated Red Blood Cells Absolute Auto 0.000 K/mm3 (0.0-0.012); Nucleated Red Blood Cells Perc 0.0 % (0.0-0.2); Platelet Count Result 157 k/mm3 (150-375); Red Blood Count 6.79 M/mm3 (4.6-6.20); White Blood Count 10.2 K/mm3 (4.5-10.0)
[2025-02-25 11:55] LABS: Hemoglobin 21.3 g/dL (14.0-18.0)
[2025-02-25 12:03] LABS: INR 0.9; Partial Thromboplastin Time 27.4 Seconds (22.3-36.8); Prothrombin Time 12.3 Seconds (11.1-14.7)
--- NOTE | 2025-02-25 12:17 | PC.NURSE ---
Pt in CT
--- NOTE | 2025-02-25 13:03 | ECG_ITS ---
Test Date: 2025-02-25 13:10:36 Measurements Intervals [place] Rate: 84 P: 38 [place]: 178 QRS: 27 QRSD: 102 T: 40 QT: 352 QTc: 418 Interpretive Statements SINUS RHYTHM ST-ELEVATION, PROBABLY EARLY REPOLARIZATION VERSUS INJURY PATTERN ABNORMAL ECG Electronically Signed On 02-25-2025 13:11:52 BILLET GRINDER by Adalid Schwab M.D.
--- NOTE | 2025-02-25 13:10 | PC.NURSE ---
PTs called to ask why the pt was being admitted. This RN advised her of the reasoning and let her know that I will call her back when we have a room number.
--- NOTE | 2025-02-25 13:31 | PM.IMHP ---
H&P: HPI History of Present Illness Date/Time: 02/25/25 13:31 Chief Complaint: Chest Pain Narrative: 49 y/o M presents here with PMH of hypertension, diabetes, asthma, and previous smoker presents for chest pain. The patient presents here from home on 02/25 for further evaluation of chest pain. He reports onset of chest pain last night while he was sleeping. He reports the pain will compartment sleep.. He describes the chest pain as midsternal, dull, radiation into his left axilla/left upper extremity that he describes as a balling or cramping, constant, and no modifying factors. He reports associated cold sweats/diaphoresis, dizziness, nausea, and precipitating fatigue. Denies shortness of breath, URI symptoms, diarrhea, abdominal pain, or palpitations. He reports he recently underwent a cardiac evaluation at [facility] for pre clearance for a right hip placement. He states he was told he had an abnormal EKG and underwent a stress test which he was told was also abnormal. Recently underwent a CT of his heart, awaiting results/comparison to his previous cardiac CT. Since arrival, he has received aspirin 324 mg, albuterol, and morphine 4 mg and is currently reporting improvement in his symptoms. Pain was initially an 8/10, currently a 6/10. No longer diaphoretic. Patient has history of polysubstance use, reports he has been clean for years and only currently uses marijuana. Initial VS at presentation: 96.6? F, HR 101, R 20, 126/100 (now 138/85 without intervention), and 98% on room air. ED workup showed: WBC 10.2, hemoglobin 21.3, INR 0.9, elevated D-dimer, sodium 129, creatinine 1.11 and GFR >60, glucose 137, initial troponin negative. CXR showed a possible right mid lung lateral opacity. Chest CTA showed no PE or acute cardiopulmonary findings, XR finding due to a chronic rib fracture. Initial EKG showed sinus tachycardia, rate 100, possible left atrial enlargement, incomplete RBBB. Review of Systems Review of Systems: All systems reviewed & are unremarkable except as noted in HPI and below PMFSH Past Medical History Medical History (Updated 02/25/25 @ 15:10 by Lorraine Carter, LARY) Asthma Former smoker Hip arthritis History of MRSA infection Spinal stenosis Diabetes Hypertension Surgical History Surgical History History of appendectomy History of back surgery Social History Social History Smoking packs per day: 2 Smoking cigarettes per day: 40.0 Years smoked: 30 Smoking pack-years: 60.00 Smoking status: Former smoker Tobacco type: cigarettes Smokeless tobacco user: chewing tobacco Alcohol intake: current Drinks per week: 7 Substance use type: marijuana Other substance usage details: daily Last use: 02/24 Lack of Transportation: No Lack of Food: Never True Current Housing: I Have Housing Concerned About Future Housing: No Difficulty Paying Gas/Electric Bills: No Difficulty Paying for Meds: No Currently Unemployed: No Education: Trade/Vocational Certificate Difficulty w/ Childcare or Family Care: No Spiritual care concerns: No Meds Home Medications and Allergies Home Medications ?Medication ?Instructions ?Recorded ?Confirmed ?Type clonazepam 1 mg tablet 1 mg PO BID 04/23/21 02/25/25 History Held on 02/25/25. Instructions: Patient no longer taking duloxetine 60 mg capsule,delayed 60 mg PO BID 04/23/21 02/25/25 History release (Cymbalta) empagliflozin 10 mg tablet 10 mg PO DAILY 04/23/21 02/25/25 History (Jardiance) esomeprazole magnesium 20 mg 20 mg PO DAILY 04/23/21 02/25/25 History granules delayed release for susp Held on 02/25/25. Instructions: Patient no longer taking glimepiride 4 mg tablet 2 mg PO HS 04/23/21 02/25/25 History hydrochlorothiazide 25 mg tablet 25 mg PO DAILY 04/23/21 02/25/25 History lisinopril 20 mg tablet 20 mg PO DAILY 04/23/21 02/25/25 History meloxicam 15 mg tablet 15 mg PO DAILY 04/23/21 02/25/25 History metformin 500 mg tablet 1,000 mg PO BID 04/23/21 02/25/25 History pregabalin 100 mg capsule 100 mg PO BID 04/23/21 02/25/25 History tizanidine 4 mg tablet 4 mg PO TID PRN Pain 04/23/21 02/25/25 History aspirin 81 mg tablet 81 mg PO HS 05/18/21 02/25/25 History ibuprofen 600 mg tablet 600 mg PO QID PRN pain #25 tabs 05/18/21 02/25/25 Rx Held on 02/25/25. Instructions: Patient no longer taking methocarbamol 750 mg tablet 750 mg PO QID #25 tabs 05/18/21 02/25/25 Rx Held on 02/25/25. Instructions: Patient no longer taking amoxicillin 875 mg-potassium 1 tablet PO Q12H 02/25/25 02/25/25 History clavulanate 125 mg tablet atorvastatin 20 mg tablet 40 mg PO QPM 02/25/25 02/25/25 History fexofenadine 180 mg tablet 180 mg PO DAILY 02/25/25 02/25/25 History (Kallie Allergy) omeprazole 40 mg capsule,delayed 40 mg PO DAILY 02/25/25 02/25/25 History release oxycodone-acetaminophen 5 mg-325 1 tablet PO Q6H PRN pain 02/25/25 02/25/25 History mg tablet tirzepatide 5 mg/0.5 mL 7.5 mg subcut WEEKLY 02/25/25 02/25/25 History subcutaneous pen injector (Jayden) trazodone 50 mg tablet 50 mg PO HS PRN sleep 02/25/25 02/25/25 History Allergies Allergy/AdvReac Type Severity Reaction Status Date / Time Iodinated Contrast Media Allergy Mild Flushing, Verified 02/25/25 15:20 headache, nausea alprazolam (From Xanax) AdvReac Severe Agitated Verified 02/25/25 15:05 buspirone (From BuSpar) AdvReac Severe Agitated Verified 02/25/25 15:05 gabapentin AdvReac Severe Agitated Verified 02/25/25 15:05 baclofen AdvReac Intermediate Gastrointestinal Verified 02/25/25 15:05 Upset enoxaparin (From Lovenox) AdvReac Intermediate Hives Verified 02/25/25 15:05 prednisone AdvReac Intermediate Hives Verified 02/25/25 15:05 warfarin AdvReac Intermediate Hives Verified 02/25/25 15:05 Vital Signs Vital Signs - 24 hr 02/25/25 09:57 02/25/25 09:57 02/25/25 10:10 Temperature 96.6 F L Pulse Rate 101 H 93 Respiratory Rate 20 23 H Blood Pressure 126/100 H Pulse Oximetry 98 Oxygen Delivery Room Air Room Air 02/25/25 10:16 02/25/25 10:18 02/25/25 11:30 Temperature Pulse Rate 96 88 90 Respiratory Rate 22 H 17 12 Blood Pressure 136/92 H 138/85 Pulse Oximetry 100 96 Oxygen Delivery Exam Const: General: comfortable and no acute distress Other: , male, nontoxic appearance, obese body habitus HENMT: Face/Nose/Sinus: Normal nares present Mouth: Yes moist mucous membranes Eyes: General: appearance normal, both eyes and all related structures Sclera: sclerae normal Pupils: Equal, round and reactive pupils present EOM: EOMs intact bilaterally Resp: Effort & Inspection: normal respiratory effort Auscultation: clear to auscultation bilaterally Cardio: Rate: regular rate Rhythm: regular rhythm Other: S1-S2 present without murmur, rub, ectopy GI: Other: Abdomen rounded but soft and nondistended. No tenderness on exam. Normoactive bowel sounds in all quadrants. Skin: General skin exam: normal color and no rashes or lesions noted Wounds: no wounds Neuro: Speech: normal speech Motor exam (neuro): 5/5 motor strength present throughout Sensory Exam: normal sensation Other: A&O x4 Extrem: General: normal to inspection Psych: Mental Status: mental status grossly normal Affect: normal affect Other: Good insight and judgment, very pleasant H&P: Results Labs Labs: Short CBC 02/25/25 02/25/25 Range/Units 10:34 11:43 WBC 10.8 H 10.2 H (4.5-10.0) K/mm3 Hgb 21.5 H* D 21.3 H* (14.0-18.0) g/dL Hct 61.0 H 61.8 H (42.0-52.0) % Plt Count 165 157 (150-375) k/mm3 BMP 02/25/25 10:34 Sodium 129 L Potassium 4.4 Chloride 93 L Carbon Dioxide 21 L BUN 26 H Creatinine 1.11 Glucose 137 H Calcium 10.0 Cardiac Enzymes 02/25/25 Range/Units 10:34 Troponin I < 0.012 (0.000-0.034) ng/mL Liver Function 02/25/25 Range/Units 10:34 Total Bilirubin 1.3 (0.2-1.3) mg/dL AST 52 (17-59) U/L ALT 70 H (6-50) U/L Alkaline Phosphatase 83 (38-126) U/L Albumin 5.2 H (3.5-5.1) g/dL Assessment and Plan Assessment and plan (1) Chest pain: Qualifiers: Chest pain type: unspecified Qualified Code(s): R07.9 - Chest pain, unspecified Code(s): R07.9 - Chest pain, unspecified Status: Acute Assessment and Plan: Who patient here with midsternal chest pain with radiation into his left axilla and left upper extremity that will improve his sleep last night on 02/24. Recently underwent a cardiac evaluation for surgical clearance. Told his EKG showed he has had a previous heart attack which prompted a stress test which was reportedly abnormal. Patient then underwent a CT of his heart, awaiting results/comparison to his previous cardiac CT. Currently reporting in modest improvement in his chest pain at with administration of albuterol, aspirin, and morphine. Reviewed EKG completed in the ED, no significant ST elevations or depressions. - cardiology consulted - trend troponins, thus far negative x2 - start daily ASA, given full-dose in ED - nitro SL p.r.n. - check lipid panel, continue atorvastatin 40 mg daily - requesting records from [facility], underwent recent cardiac CT and stress test - admission to IMU for close monitoring (2) COPD exacerbation: Code(s): J44.1 - Chronic obstructive pulmonary disease with (acute) exacerbation Status: Acute Assessment and Plan: Arrived with expiratory wheeze and received an albuterol nebulizer, wheezing has since resolved. Patient is a former smoker and has history of asthma. Likely has some level of underlying COPD. Albuterol nebulizer p.r.n.. Denies any URI symptoms, cough, or sputum production. Low suspicion for COPD exacerbation. - albuterol neb p.r.n. (3) Polycythemia: Code(s): D75.1 - Secondary polycythemia Status: Acute Assessment and Plan: Patient is a former smoker. No previous history of polycythemia. Elevated hemoglobin upon admission, 21.3. Will give IV fluids. Arrived with expiratory wheeze on exam increasing suspicion for underlying COPD given smoking history. Polycythemia could be related to undiagnosed COPD. - IV fluids - trend CBC (4) Diabetes: Qualifiers: Diabetes mellitus complication status: without complication Diabetes mellitus assistant terminal manager insulin use: without assistant terminal manager use Diabetes mellitus type: type 2 Qualified Code(s): E11.9 - Type 2 diabetes mellitus without complications Code(s): E11.9 - Type 2 diabetes mellitus without complications Status: Chronic Assessment and Plan: - hypoglycemia protocol - POC blood glucose ACHS - home medication: Hold glimepiride, metformin and Jardiance, patient made NPO midnight in case of need for further cardiac evaluation tomorrow. Hold Mounjaro (NF). - correct regimen ordered - high dose TIDWM, based off BMI - A1C ordered, none on file (5) Hypertension: Qualifiers: Hypertension type: primary hypertension Qualified Code(s): I10 - Essential (primary) hypertension Code(s): I10 - Essential (primary) hypertension Status: Chronic Assessment and Plan: - chronic, currently 150/88, stable. - continue home medications: Lisinopril 20 mg daily, HCTZ 25 mg daily - monitor Plan Post CT with contrast performed around 12:30 p.m., the patient is reporting flushing and diaphoresis around 3:00 p.m. to the bedside RN. Reported to her that he has previously had a similar reaction after receiving CT with contrast. Benadryl 25 mg IV and Famotidine 20 mg p.o. ordered now. Additional 25 mg of Benadryl p.r.n. if no resolution of patient's symptoms. No current SOB or perioral itching/swelling endorsed. Diet: heart healthy GI Prophylaxis: n/a DVT Prophylaxis: SCDs, allergy to Lovenox IV fluids: 1L bolus Lines/Tubes: peripheral IV Code Status: full code Quality VTE Prophylaxis VTE prophylaxis: mechanical ordered Hospitalist [facility] Advance Care Plan I have confirmed that the patient's Advanced Care Plan is present, code status is documented, or surrogate decision maker is listed in patient medical record.: Yes Medication Reconciliation I have utilized all available resources to obtain, update and review the patients current medications (includes all prescriptions, OTC, herbals, cannabis, and nutritional supplements).: Yes
[2025-02-25 14:00] LABS: Troponin I < 0.012 ng/mL (0.000-0.034)
[2025-02-25] MEDS: ALBUTEROL SULFATE NEB 2.5 MG/3 ML INH INHALATION ×2 (14:11→20:48)
--- NOTE | 2025-02-25 14:36 | PC.NURSE ---
pts called to let her know what room her is being admitted to. spouse did not answer. advised to call me back if she has any other questions
[2025-02-25] MEDS: FAMOTIDINE 20 MG TABLET PO (15:11)
[2025-02-25] MEDS: LACTATED RINGERS 1,000 ML 100 ML IV CONT (15:52)
[2025-02-25 16:51] LABS: Troponin I < 0.012 ng/mL (0.000-0.034)
[2025-02-25] MEDS: PANTOPRAZOLE 40 MG TABLET PO (16:55)
[2025-02-25] MEDS: DULoxetine HCL 60 MG CAPSULE.DR PO (16:55)
[2025-02-25] MEDS: ATORVASTATIN 40 MG TABLET PO (16:55)
[2025-02-25] MEDS: PREGABALIN (*CRX) 50 MG CAPSULE 100 MG PO (16:56)
[2025-02-25] MEDS: oxyCODONE/ACETAMINOPHEN (*CRX) 5-325 MG TABLET 1 TABLET PO (19:46)
[2025-02-25] MEDS: TIZANIDINE HCL 4 MG TABLET PO (21:15)
[2025-02-26] VITALS (10 sets, daily range): BP systolic 129–144; BP diastolic 76–88; PULSE 86–109; RESP 13–20; TEMP 36.3–37.3; O2SAT 94–99
[2025-02-26] MEDS: ALBUTEROL SULFATE NEB 2.5 MG/3 ML INH INHALATION ×2 (02:17→08:10)
[2025-02-26] MEDS: LACTATED RINGERS 1,000 ML 100 ML IV CONT (02:33)
[2025-02-26 04:44] LABS: Hematocrit 60.0 % (42.0-52.0); Hemoglobin 20.7 g/dL (14.0-18.0); Immature Granulocyte Percent A 0.6 % (0-0.5); Lymphocytes Absolute Auto 1.18 K/mm3 (0.9-3.2); Mean Corpuscular HGB Conc 34.5 g/dl (32-36); Mean Corpuscular Hemoglobin 31.8 pg (26-34); Mean Corpuscular Volume 92.2 fl (80-100); Nucleated Red Blood Cells Absolute Auto 0.000 K/mm3 (0.0-0.012); Nucleated Red Blood Cells Perc 0.0 % (0.0-0.2); Platelet Count Result 142 k/mm3 (150-375); Red Blood Count 6.51 M/mm3 (4.6-6.20); White Blood Count 7.0 K/mm3 (4.5-10.0)
[2025-02-26 04:54] LABS: Hemoglobin A1C 7.3 % (<5.7)
[2025-02-26] MEDS: oxyCODONE/ACETAMINOPHEN (*CRX) 5-325 MG TABLET 1 TABLET PO ×2 (05:08→12:04)
[2025-02-26 05:15] LABS: Anion Gap 10 mmol/L (4-12); Blood Urea Nitrogen 23 mg/dL (9-20); Calcium 8.9 mg/dL (8.4-10.2); Carbon Dioxide 27 mmol/L (22-30); Chloride 95 mmol/L (98-107); Cholesterol 161 mg/dL (0-200); Estimated CRCL calculation 107 ml/min; Estimated Glomerular Filt Rate > 60; Glucose 129 mg/dL (65-110); HDL Direct 39 mg/dL; Potassium 4.0 mmol/L (3.4-5.0); Sodium 132 mmol/L (137-145); Triglycerides 187 mg/dL (<150)
[2025-02-26] MEDS: DULoxetine HCL 60 MG CAPSULE.DR PO (08:32)
[2025-02-26] MEDS: LORATADINE 10 MG TABLET PO (08:33)
[2025-02-26] MEDS: ASPIRIN 81 MG ENTERIC TABLET PO (08:33)
[2025-02-26] MEDS: PREGABALIN (*CRX) 50 MG CAPSULE 100 MG PO (08:33)
[2025-02-26] MEDS: MELOXICAM 7.5 MG TABLET 15 MG PO (08:33)
[2025-02-26] MEDS: PANTOPRAZOLE 40 MG TABLET PO (08:34)
[2025-02-26] MEDS: TIZANIDINE HCL 4 MG TABLET PO (08:44)
--- NOTE | 2025-02-26 09:13 | PM.IMPN ---
Progress Note: A&P Assessment and Plan (1) Chest pain: Qualifiers: Chest pain type: unspecified Qualified Code(s): R07.9 - Chest pain, unspecified Code(s): R07.9 - Chest pain, unspecified Status: Acute Assessment and Plan: Who patient here with midsternal chest pain with radiation into his left axilla and left upper extremity that will improve his sleep last night on 02/24. Recently underwent a cardiac evaluation for surgical clearance. Told his EKG showed he has had a previous heart attack which prompted a stress test which was reportedly abnormal. Patient then underwent a CT of his heart, awaiting results/comparison to his previous cardiac CT. Currently reporting in modest improvement in his chest pain at with administration of albuterol, aspirin, and morphine. Reviewed EKG completed in the ED, no significant ST elevations or depressions. - cardiology consulted - trend troponins, thus far negative x2 - start daily ASA, given full-dose in ED - nitro SL p.r.n. - check lipid panel, continue atorvastatin 40 mg daily - requesting records from [facility], underwent recent cardiac CT and stress test - admission to IMU for close monitoring (2) COPD exacerbation: Code(s): J44.1 - Chronic obstructive pulmonary disease with (acute) exacerbation Status: Acute Assessment and Plan: Arrived with expiratory wheeze and received an albuterol nebulizer, wheezing has since resolved. Patient is a former smoker and has history of asthma. Likely has some level of underlying COPD. Albuterol nebulizer p.r.n.. Denies any URI symptoms, cough, or sputum production. Low suspicion for COPD exacerbation. - albuterol neb p.r.n. (3) Polycythemia: Code(s): D75.1 - Secondary polycythemia Status: Acute Assessment and Plan: Patient is a former smoker. No previous history of polycythemia. Elevated hemoglobin upon admission, 21.3. Will give IV fluids. Arrived with expiratory wheeze on exam increasing suspicion for underlying COPD given smoking history. Polycythemia could be related to undiagnosed COPD. 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 Hold Mounjaro (NF). - correct regimen ordered - high dose TIDWM, based off BMI - A1C ordered, none on file (5) Hypertension: Qualifiers: Hypertension type: primary hypertension Qualified Code(s): I10 - Essential (primary) hypertension Code(s): I10 - Essential (primary) hypertension Status: Chronic Assessment and Plan: - chronic, currently 150/88, stable. - continue home medications: Lisinopril 20 mg daily, HCTZ 25 mg daily - monitor Plan Post CT with contrast performed around 12:30 p.m., the patient is reporting flushing and diaphoresis around 3:00 p.m. to the bedside RN. Reported to her that he has previously had a similar reaction after receiving CT with contrast. Benadryl 25 mg IV and Famotidine 20 mg p.o. ordered now. Additional 25 mg of Benadryl p.r.n. if no resolution of patient's symptoms. No current SOB or perioral itching/swelling endorsed. Diet: heart healthy GI Prophylaxis: n/a DVT Prophylaxis: SCDs, allergy to Lovenox IV fluids: 1L bolus Lines/Tubes: peripheral IV Code Status: full code Subjective Date/time seen: 02/26/25 09:13 Interval history: 49 y/o M presents here with PMH of hypertension, diabetes, asthma, and previous smoker presents for chest pain. The patient presents here from home on 02/25 for further evaluation of chest pain. Initial VS at presentation: 96.6? F, HR 101, R 20, 126/100 (now 138/85 without intervention), and 98% on room air. ED workup showed: WBC 10.2, hemoglobin 21.3, INR 0.9, elevated D-dimer, sodium 129, creatinine 1.11 and GFR >60, glucose 137, initial troponin negative. CXR showed a possible right mid lung lateral opacity. Chest CTA showed no PE or acute cardiopulmonary findings, XR finding due to a chronic rib fracture. Initial EKG showed sinus tachycardia, rate 100, possible left atrial enlargement, incomplete RBBB. Pt is seen and examined. He developed mild facial flushing and mild throat itching after contrast. Benadryl was given. Awaiting cardiology consult. Hg slightly improved 21.5-21.3-20.7 Review of Systems Review of Systems: All systems reviewed & are unremarkable except as noted in HPI and below Exam Const: General: comfortable and no acute distress Other: , male, nontoxic appearance, obese body habitus HENMT: Face/Nose/Sinus: Normal nares present Mouth: Yes moist mucous membranes Eyes: General: appearance normal, both eyes and all related structures Sclera: sclerae normal Pupils: Equal, round and reactive pupils present EOM: EOMs intact bilaterally Resp: Effort & Inspection: normal respiratory effort Auscultation: clear to auscultation bilaterally Cardio: Rate: regular rate Rhythm: regular rhythm Other: S1-S2 present without murmur, rub, ectopy GI: Other: Abdomen rounded but soft and nondistended. No tenderness on exam. Normoactive bowel sounds in all quadrants. Skin: General skin exam: normal color and no rashes or lesions noted Wounds: no wounds Neuro: Cranial nerves: Yes Equal, round and reactive pupils present Speech: normal speech Motor exam (neuro): 5/5 motor strength present throughout Sensory Exam: normal sensation Other: A&O x4 Extrem: General: normal to inspection Psych: Mental Status: mental status grossly normal Affect: normal affect Other: Good insight and judgment, very pleasant Objective Data Vital Signs Vital Signs: Vital Signs - 24 hr 02/25/25 09:57 02/25/25 09:57 02/25/25 10:10 Temperature 96.6 F L Pulse Rate 101 H 93 Respiratory Rate 20 23 H Blood Pressure 126/100 H Pulse Oximetry 98 Oxygen Delivery Room Air Room Air Fraction of Inspired Oxygen 02/25/25 10:16 02/25/25 10:18 02/25/25 11:00 Temperature Pulse Rate 96 88 87 Respiratory Rate 22 H 17 16 Blood Pressure 136/92 H 117/99 H Pulse Oximetry 100 97 Oxygen Delivery Fraction of Inspired Oxygen 02/25/25 11:30 02/25/25 11:30 02/25/25 12:00 Temperature Pulse Rate 90 94 86 Respiratory Rate 12 16 16 Blood Pressure 138/85 133/85 130/82 Pulse Oximetry 96 94 96 Oxygen Delivery Fraction of Inspired Oxygen 02/25/25 13:00 02/25/25 14:11 02/25/25 14:38 Temperature Pulse Rate 96 96 99 Respiratory Rate 16 20 16 Blood Pressure 146/81 H 150/88 H Pulse Oximetry 97 100 Oxygen Delivery Fraction of Inspired Oxygen 02/25/25 16:00 02/25/25 16:00 02/25/25 18:00 Temperature 98.7 F Pulse Rate 111 H 97 93 Respiratory Rate 24 H Blood Pressure 143/73 H Pulse Oximetry 100 Oxygen Delivery Fraction of Inspired Oxygen 02/25/25 19:25 02/25/25 20:00 02/25/25 20:54 Temperature 99.7 F H Pulse Rate 102 H 100 92 Respiratory Rate 20 20 Blood Pressure 136/90 Pulse Oximetry 95 Oxygen Delivery Fraction of Inspired Oxygen 02/25/25 20:55 02/25/25 21:00 02/25/25 22:00 Temperature Pulse Rate 93 91 Respiratory Rate 20 Blood Pressure Pulse Oximetry 95 Oxygen Delivery Room Air Fraction of Inspired Oxygen 02/26/25 00:00 02/26/25 00:00 02/26/25 02:00 Temperature 97.4 F L Pulse Rate 93 92 90 Respiratory Rate 17 Blood Pressure 144/85 H Pulse Oximetry 99 Oxygen Delivery Fraction of Inspired Oxygen 02/26/25 02:17 02/26/25 04:00 02/26/25 04:00 Temperature 99.1 F Pulse Rate 109 H 91 94 Respiratory Rate 20 13 Blood Pressure 130/88 Pulse Oximetry 97 Oxygen Delivery Fraction of Inspired Oxygen 02/26/25 06:00 02/26/25 08:00 02/26/25 08:10 Temperature 98 F Pulse Rate 94 91 89 Respiratory Rate 18 20 Blood Pressure 143/83 H Pulse Oximetry 95 Oxygen Delivery Fraction of Inspired Oxygen 02/26/25 08:10 02/26/25 08:18 Temperature Pulse Rate 98 Respiratory Rate 20 Blood Pressure Pulse Oximetry 97 Oxygen Delivery Room Air Fraction of Inspired Oxygen 21 Intake/Output Intake/Output: Intake & Output 02/23/25 02/24/25 02/25/25 02/26/25 23:59 23:59 23:59 23:59 Intake Total 1240 1300 Output Total 4497 4230 Balance -285 -590 Meds/Results Medications: Active Medications Generic Name Dose Route Start Last Admin Trade Name Freq PRN Reason Stop Dose Admin Albuterol 2.5 mg 02/25/25 14:00 02/26/25 08:10 Albuterol Sulfate Neb 2.5 Mg/3 Ml Inh INHALATION 2.5 mg Q6HRT MARTINA Administration Aspirin 81 mg 02/26/25 09:00 02/26/25 08:33 Aspirin 81 Mg Enteric Tablet PO 81 mg QAM MARTINA Administration Atorvastatin Calcium 40 mg 02/25/25 18:00 02/25/25 16:55 Atorvastatin 40 Mg Tablet PO 40 mg QPM MARTINA Administration Dextrose 12.5 gm 02/25/25 15:12 Dextrose 50% 25 Gm/50 Ml Syringe IV PUSH PRN PRN Hypoglycemia Protocol Diphenhydramine HCl 25 mg 02/25/25 15:01 02/25/25 16:52 Diphenhydramine Hcl Inj 50 Mg/Ml Vial IV PUSH 25 mg ONCE PRN Administration Allergic Reaction Duloxetine HCl 60 mg 02/25/25 16:00 02/26/25 08:32 Duloxetine Hcl 60 Mg Capsule.Dr PO 60 mg BID MARTINA Administration Glucagon 1 mg 02/25/25 15:12 Glucagon For Inj 1 Mg Vial IM PRN PRN Hypoglycemia Protocol Glucose 15 gm 02/25/25 15:12 Glucose Oral Gel 15 Gm Of Glucse In 37.5 Gm Tube PO PRN PRN Hypoglycemia Protocol Hydrochlorothiazide 25 mg 02/26/25 09:00 Hydrochlorothiazide 25 Mg Tablet PO DAILY MARTINA Lactated Ringer's 1,000 mls @ 100 mls/hr 02/25/25 15:10 02/26/25 02:33 Lr - Lactated Ringers Iv IV CONT 100 mls/hr .Q10H MARTINA Administration Dextrose 1,000 mls @ 100 mls/hr 02/25/25 15:12 Dextrose 5% 1,000 Ml IVPB PRN PRN Hypoglycemia Protocol Insulin Aspart 4 - 8 units 02/25/25 17:00 02/26/25 08:41 Insulin Aspart (*Bkc) 100 Units/Ml SUB-Q Not Given TIDWM MARTINA Protocol Lisinopril 20 mg 02/26/25 09:00 02/26/25 08:34 Lisinopril 20 Mg Tablet PO 20 mg DAILY MARTINA Administration Loratadine 10 mg 02/26/25 09:00 02/26/25 08:33 Loratadine 10 Mg Tablet PO 10 mg DAILY MARTINA Administration Meloxicam 15 mg 02/26/25 09:00 02/26/25 08:33 Meloxicam 7.5 Mg Tablet PO 15 mg DAILY MARTINA Administration Nitroglycerin 0.4 mg 02/25/25 15:05 Nitroglycerin Sl 0.4 Mg Tablet SUBLINGUAL Q5MIN PRN Chest Pain Oxycodone/Acetaminophen 1 tablet 02/25/25 15:50 02/26/25 05:08 Oxycodone/Acetaminophen (*Crx) 5-325 Mg Tablet PO 1 tablet Q6H PRN Administration PAIN RATED 7-10 Pantoprazole Sodium 40 mg 02/25/25 17:00 02/26/25 08:34 Pantoprazole 40 Mg Tablet PO 40 mg BID MARTINA Administration Pregabalin 100 mg 02/25/25 17:00 02/26/25 08:33 Pregabalin (*Crx) 50 Mg Capsule PO 100 mg BID MARTINA Administration Tizanidine HCl 4 mg 02/25/25 15:50 02/26/25 08:44 Tizanidine Hcl 4 Mg Tablet PO 4 mg TID PRN Administration MUSCLE PAIN Trazodone HCl 50 mg 02/25/25 15:50 02/25/25 21:15 Trazodone Hcl 50 Mg Tablet PO 50 mg HS PRN Administration Sleep Radiology Results: ITS Impressions Chest X-Ray 02/25/25 11:13 IMPRESSION: 1. Recommend CT chest. Right midlung lateral opacity not excluded. Chest CTA 02/25/25 12:30 IMPRESSION: 1. No PE identified, nor other acute cardiopulmonary findings. 2. X-ray finding right lung due to chronic rib fracture. Labs Labs: Laboratory Results - last 24 hr 02/25/25 02/25/25 02/25/25 10:34 11:43 13:29 WBC 10.8 H 10.2 H RBC 6.77 H 6.79 H Hgb 21.5 H* D 21.3 H* Hct 61.0 H 61.8 H MCV 90.1 91.0 MCH 31.8 31.4 MCHC 35.2 34.5 RDW 13.3 13.0 Plt Count 165 157 MPV 9.5 9.4 Immature Gran % (Auto) 0.3 0.6 H Neut % (Auto) 78.0 H 78.7 H Lymph % (Auto) 12.3 L 11.7 L [place] % (Auto) 8.4 8.0 Eos % (Auto) 0.5 0.4 Baso % (Auto) 0.5 0.6 Lymph # (Auto) 1.33 1.19 [place] # (Auto) 0.9 H 0.8 H Eos # (Auto) 0.1 0.0 Baso # (Auto) 0.1 0.1 Abs Immat Gran (auto) 0.03 0.06 H Absolute Neuts (auto) 8.5 H 8.0 H Absolute Nucleated RBC 0.000 0.000 Nucleated RBC % 0.0 0.0 PT 12.3 INR 0.9 APTT 27.4 D-Dimer 0.58 H Sodium 129 L Potassium 4.4 Chloride 93 L Carbon Dioxide 21 L Anion Gap 15 H BUN 26 H Creatinine 1.11 Estim Creat Clear Calc 108 Estimated GFR > 60 Glucose 137 H POC Capillary Glucose Hemoglobin A1c Calcium 10.0 Total Bilirubin 1.3 AST 52 ALT 70 H Alkaline Phosphatase 83 Troponin I < 0.012 < 0.012 NT-Pro-B Natriuret Pep < 20 Total Protein 8.7 H Albumin 5.2 H Triglycerides Cholesterol LDL Cholesterol Direct HDL Direct Lipase 58 02/25/25 02/25/25 02/25/25 16:00 16:37 19:28 WBC RBC Hgb Hct MCV MCH MCHC RDW Plt Count MPV Immature Gran % (Auto) Neut % (Auto) Lymph % (Auto) [place] % (Auto) Eos % (Auto) Baso % (Auto) Lymph # (Auto) [place] # (Auto) Eos # (Auto) Baso # (Auto) Abs Immat Gran (auto) Absolute Neuts (auto) Absolute Nucleated RBC Nucleated RBC % PT INR APTT D-Dimer Sodium Potassium Chloride Carbon Dioxide Anion Gap BUN Creatinine Estim Creat Clear Calc Estimated GFR Glucose POC Capillary Glucose 133 H 198 H Hemoglobin A1c Calcium Total Bilirubin AST ALT Alkaline Phosphatase Troponin I < 0.012 NT-Pro-B Natriuret Pep Total Protein Albumin Triglycerides Cholesterol LDL Cholesterol Direct HDL Direct Lipase 02/26/25 02/26/25 03:56 06:41 WBC 7.0 RBC 6.51 H Hgb 20.7 H Hct 60.0 H MCV 92.2 MCH 31.8 MCHC 34.5 RDW 13.3 Plt Count 142 L MPV 10.0 Immature Gran % (Auto) 0.6 H Neut % (Auto) 67.3 Lymph % (Auto) 16.9 L [place] % (Auto) 13.6 H Eos % (Auto) 0.9 Baso % (Auto) 0.7 Lymph # (Auto) 1.18 [place] # (Auto) 1.0 H Eos # (Auto) 0.1 Baso # (Auto) 0.1 Abs Immat Gran (auto) 0.04 H Absolute Neuts (auto) 4.7 Absolute Nucleated RBC 0.000 Nucleated RBC % 0.0 PT INR APTT D-Dimer Sodium 132 L Potassium 4.0 Chloride 95 L Carbon Dioxide 27 Anion Gap 10 BUN 23 H Creatinine 1.12 Estim Creat Clear Calc 107 Estimated GFR > 60 Glucose 129 H POC Capillary Glucose 161 H Hemoglobin A1c 7.3 H Calcium 8.9 Total Bilirubin AST ALT Alkaline Phosphatase Troponin I NT-Pro-B Natriuret Pep Total Protein Albumin Triglycerides 187 H Cholesterol 161 LDL Cholesterol Direct 87 HDL Direct 39 Lipase Quality VTE Prophylaxis VTE prophylaxis: mechanical ordered
--- NOTE | 2025-02-26 09:40 | PC.NURSE ---
refaxed med records request to [facility]
--- NOTE | 2025-02-26 10:54 | PC.NURSE ---
pt down in u/s
--- NOTE | 2025-02-26 11:54 | PM.CNCAR ---
Assessment and Plan Assessment and plan (1) Chest pain: Qualifiers: Chest pain type: unspecified Qualified Code(s): R07.9 - Chest pain, unspecified Code(s): R07.9 - Chest pain, unspecified Status: Acute (2) Hypertension: Qualifiers: Hypertension type: primary hypertension Qualified Code(s): I10 - Essential (primary) hypertension Code(s): I10 - Essential (primary) hypertension Status: Chronic Plan 49-year-old man with diabetes, hypertension, and hyperlipidemia presented with chest discomfort Chest discomfort -he has been ruled out for acute [place] -he can follow-up with his outpatient film inspector for the results of his coronary CTA -I have discussed with him signs and symptoms to be aware of that should prompt a return to emergency room -he is agreeable with the plan Hypertension -continue lisinopril and hydrochlorothiazide Hyperlipidemia -continue atorvastatin Cardiology will sign off. Please call with additional questions. History of Present Illness History of Present Illness Consult date/time: 02/26/25 11:54 Requesting physician: Amanda Cunningham APRN Consult reason: chest pain Reason For Visit: Chest Pain/Polycythemia Narrative: 49-year-old man with diabetes, hypertension, and hyperlipidemia presented with chest discomfort. He woke up in the evening with substernal and left-sided chest discomfort that he describes as a knot. He decided to drive over to his friend's place down the street and by the time he got there, his pain have increased significantly prompting emergency room visit. During his stay here by the time he was admitted and transferred to IMU, his chest discomfort had subsided. Morphine alleviated the pain slightly. No nitroglycerin was given. The pain subsided on its own. He has no recurrence of the chest discomfort at this time. He occasionally has associated shortness of breath. He has seen a film inspector at [facility] for hip surgery clearance and had obtain a nuclear stress test and is awaiting the results of cardiac CTA now. Review of Systems Cardiovascular: Cardiovascular: Reports as per HPI Respiratory: Respiratory: Reports as per HPI [facility] Past Medical History Medical History (Updated 02/25/25 @ 15:10 by Lorraine Carter APRN) Asthma Former smoker Hip arthritis History of MRSA infection Spinal stenosis Diabetes Hypertension Surgical History Surgical History History of appendectomy History of back surgery Social History Social History Smoking packs per day: 2 Smoking cigarettes per day: 40.0 Years smoked: 30 Smoking pack-years: 60.00 Smoking status: Former smoker Tobacco type: cigarettes Smokeless tobacco user: chewing tobacco Alcohol intake: current Drinks per week: 7 Substance use type: marijuana Other substance usage details: daily Last use: 02/24 Lack of Transportation: No Lack of Food: Never True Current Housing: I Have Housing Concerned About Future Housing: No Difficulty Paying Gas/Electric Bills: No Difficulty Paying for Meds: No Currently Unemployed: No Education: Trade/Vocational Certificate Difficulty w/ Childcare or Family Care: No Spiritual care concerns: No Meds Home Medications and Allergies Home Medications ?Medication ?Instructions ?Recorded ?Confirmed ?Type clonazepam 1 mg tablet 1 mg PO BID 04/23/21 02/25/25 History Held on 02/25/25. Instructions: Patient no longer taking duloxetine 60 mg capsule,delayed 60 mg PO BID 04/23/21 02/25/25 History release (Cymbalta) empagliflozin 10 mg tablet 10 mg PO DAILY 04/23/21 02/25/25 History (Jardiance) esomeprazole magnesium 20 mg 20 mg PO DAILY 04/23/21 02/25/25 History granules delayed release for susp Held on 02/25/25. Instructions: Patient no longer taking glimepiride 4 mg tablet 2 mg PO HS 04/23/21 02/25/25 History hydrochlorothiazide 25 mg tablet 25 mg PO DAILY 04/23/21 02/25/25 History lisinopril 20 mg tablet 20 mg PO DAILY 04/23/21 02/25/25 History meloxicam 15 mg tablet 15 mg PO DAILY 04/23/21 02/25/25 History metformin 500 mg tablet 1,000 mg PO BID 04/23/21 02/25/25 History pregabalin 100 mg capsule 100 mg PO BID 04/23/21 02/25/25 History tizanidine 4 mg tablet 4 mg PO TID PRN Pain 04/23/21 02/25/25 History aspirin 81 mg tablet 81 mg PO HS 05/18/21 02/25/25 History ibuprofen 600 mg tablet 600 mg PO QID PRN pain #25 tabs 05/18/21 02/25/25 Rx Held on 02/25/25. Instructions: Patient no longer taking methocarbamol 750 mg tablet 750 mg PO QID #25 tabs 05/18/21 02/25/25 Rx Held on 02/25/25. Instructions: Patient no longer taking amoxicillin 875 mg-potassium 1 tablet PO Q12H 02/25/25 02/25/25 History clavulanate 125 mg tablet atorvastatin 20 mg tablet 40 mg PO QPM 02/25/25 02/25/25 History fexofenadine 180 mg tablet 180 mg PO DAILY 02/25/25 02/25/25 History (Kallie Allergy) omeprazole 40 mg capsule,delayed 40 mg PO DAILY 02/25/25 02/25/25 History release oxycodone-acetaminophen 5 mg-325 1 tablet PO Q6H PRN pain 02/25/25 02/25/25 History mg tablet tirzepatide 5 mg/0.5 mL 7.5 mg subcut WEEKLY 02/25/25 02/25/25 History subcutaneous pen injector (Flaviounkimberly) trazodone 50 mg tablet 50 mg PO HS PRN sleep 02/25/25 02/25/25 History Allergies Allergy/AdvReac Type Severity Reaction Status Date / Time Iodinated Contrast Media Allergy Mild Flushing, Verified 02/25/25 15:20 headache, nausea alprazolam (From Xanax) AdvReac Severe Agitated Verified 02/25/25 15:05 buspirone (From BuSpar) AdvReac Severe Agitated Verified 02/25/25 15:05 gabapentin AdvReac Severe Agitated Verified 02/25/25 15:05 baclofen AdvReac Intermediate Gastrointestinal Verified 02/25/25 15:05 Upset enoxaparin (From Lovenox) AdvReac Intermediate Hives Verified 02/25/25 15:05 prednisone AdvReac Intermediate Hives Verified 02/25/25 15:05 warfarin AdvReac Intermediate Hives Verified 02/25/25 15:05 Vital Signs Vital Signs - 24 hr 02/25/25 12:00 02/25/25 13:00 02/25/25 14:11 Temperature Pulse Rate 86 96 96 Respiratory Rate 16 16 20 Blood Pressure 130/82 146/81 H Pulse Oximetry 96 97 Oxygen Delivery Fraction of Inspired Oxygen 02/25/25 14:38 02/25/25 16:00 02/25/25 16:00 Temperature 37.1 C Pulse Rate 99 111 H 97 Respiratory Rate 16 24 H Blood Pressure 150/88 H 143/73 H Pulse Oximetry 100 100 Oxygen Delivery Fraction of Inspired Oxygen 02/25/25 18:00 02/25/25 19:25 02/25/25 20:00 Temperature 37.6 C H Pulse Rate 93 102 H 100 Respiratory Rate 20 Blood Pressure 136/90 Pulse Oximetry 95 Oxygen Delivery Fraction of Inspired Oxygen 02/25/25 20:54 02/25/25 20:55 02/25/25 21:00 Temperature Pulse Rate 92 93 Respiratory Rate 20 20 Blood Pressure Pulse Oximetry 95 Oxygen Delivery Room Air Fraction of Inspired Oxygen 02/25/25 22:00 02/26/25 00:00 02/26/25 00:00 Temperature 36.3 C L Pulse Rate 91 93 92 Respiratory Rate 17 Blood Pressure 144/85 H Pulse Oximetry 99 Oxygen Delivery Fraction of Inspired Oxygen 02/26/25 02:00 02/26/25 02:17 02/26/25 04:00 Temperature Pulse Rate 90 109 H 91 Respiratory Rate 20 Blood Pressure Pulse Oximetry Oxygen Delivery Fraction of Inspired Oxygen 02/26/25 04:00 02/26/25 06:00 02/26/25 08:00 Temperature 37.3 C 36.6 C Pulse Rate 94 94 91 Respiratory Rate 13 18 Blood Pressure 130/88 143/83 H Pulse Oximetry 97 95 Oxygen Delivery Fraction of Inspired Oxygen 02/26/25 08:00 02/26/25 08:00 02/26/25 08:10 Temperature Pulse Rate 86 89 Respiratory Rate 20 Blood Pressure Pulse Oximetry Oxygen Delivery Room Air Fraction of Inspired Oxygen 02/26/25 08:10 02/26/25 08:18 02/26/25 10:00 Temperature Pulse Rate 98 97 Respiratory Rate 20 Blood Pressure Pulse Oximetry 97 Oxygen Delivery Room Air Fraction of Inspired Oxygen 21 Exam Const: General: comfortable HENMT: Mouth: Yes moist mucous membranes Eyes: EOM: EOMs intact bilaterally Neck: Neck: no JVD Resp: Effort & Inspection: normal respiratory effort Cardio: Rate: regular rate Rhythm: regular rhythm GI: GI Palp: Yes Soft to palpation Neuro: Speech: normal speech Extrem: General: no pedal edema Results Labs and Meds 02/26/25 03:56 02/26/25 03:56 Lab results: Cardiac Enzymes 02/25/25 02/25/25 Range/Units 13:29 16:00 Troponin I < 0.012 < 0.012 (0.000-0.034) ng/mL Coagulation 02/25/25 Range/Units 11:43 PT 12.3 (11.1-14.7) Seconds APTT 27.4 (22.3-36.8) Seconds Lipids 02/26/25 Range/Units 03:56 Triglycerides 187 H (<150) mg/dL Cholesterol 161 (0-200) mg/dL CBC 02/25/25 02/26/25 Range/Units 11:43 03:56 WBC 10.2 H 7.0 (4.5-10.0) K/mm3 RBC 6.79 H 6.51 H (4.6-6.20) M/mm3 Hgb 21.3 H* 20.7 H (14.0-18.0) g/dL Hct 61.8 H 60.0 H (42.0-52.0) % Plt Count 157 142 L (150-375) k/mm3 Lymph # (Auto) 1.19 1.18 (0.9-3.2) K/mm3 [place] # (Auto) 0.8 H 1.0 H (0.1-0.6) K/mm3 Eos # (Auto) 0.0 0.1 (0-0.3) K/mm3 Baso # (Auto) 0.1 0.1 (0.0-0.1) K/mm3 Comprehensive Metabolic Panel 02/26/25 Range/Units 03:56 Sodium 132 L (137-145) mmol/L Potassium 4.0 (3.4-5.0) mmol/L Chloride 95 L (98-107) mmol/L Carbon Dioxide 27 (22-30) mmol/L BUN 23 H (9-20) mg/dL Creatinine 1.12 (0.7-1.3) mg/dL Glucose 129 H (65-110) mg/dL Calcium 8.9 (8.4-10.2) mg/dL Intake and Output 02/25/25 02/26/25 02/26/25 23:59 07:59 15:59 Intake Total 240 1300 Output Total 1125 1890 Balance -885 -566 Intake: IV 1000 Lactated Ringers 1,000 ml @ 100 1000 mls/hr IV CONT .Q10H [facility] Rx#: [id number] Oral 240 300 Output: Urine 1125 1890 Patient Weight 02/26/25 23:59 Weight 139.3 kg
--- NOTE | 2025-02-26 12:26 | P.DS_ITS ---
DS: Admitting Diagnosis Discharge Date 02/26 Admitting Diagnosis chest pain DS: Discharge Diagnosis Discharge Diagnosis (1) Chest pain: Qualifiers: Chest pain type: unspecified Qualified Code(s): R07.9 - Chest pain, unspecified Code(s): R07.9 - Chest pain, unspecified Status: Acute (2) COPD exacerbation: Code(s): J44.1 - Chronic obstructive pulmonary disease with (acute) exacerbation Status: Acute (3) Polycythemia: Code(s): D75.1 - Secondary polycythemia Status: Acute (4) Diabetes: Qualifiers: Diabetes mellitus type: type 2 Diabetes mellitus terminal make up operator insulin use: without terminal make up operator use Diabetes mellitus complication status: without complication Qualified Code(s): E11.9 - Type 2 diabetes mellitus without complications Code(s): E11.9 - Type 2 diabetes mellitus without complications Status: Chronic Assessment and Plan: - hypoglycemia protocol - POC blood glucose ACHS - home medication: Hold glimepiride, metformin and Jardiance, patient made NPO midnight in case of need for further cardiac evaluation tomorrow. Hold Mounjaro (NF). - correct regimen ordered - high dose TIDWM, based off BMI - A1C ordered, none on file (5) Hypertension: Qualifiers: Hypertension type: primary hypertension Qualified Code(s): I10 - Essential (primary) hypertension Code(s): I10 - Essential (primary) hypertension Status: Chronic Assessment and Plan: - chronic, currently 150/88, stable. - continue home medications: Lisinopril 20 mg daily, HCTZ 25 mg daily - monitor Plan Post CT with contrast performed around 12:30 p.m., the patient is reporting flushing and diaphoresis around 3:00 p.m. to the bedside RN. Reported to her that he has previously had a similar reaction after receiving CT with contrast. Benadryl 25 mg IV and Famotidine 20 mg p.o. ordered now. Additional 25 mg of Benadryl p.r.n. if no resolution of patient's symptoms. No current SOB or perioral itching/swelling endorsed. Diet: heart healthy GI Prophylaxis: n/a DVT Prophylaxis: SCDs, allergy to Lovenox IV fluids: 1L bolus Lines/Tubes: peripheral IV Code Status: full code DS: Summary Hospital Course Hospital Course: 49 y/o M presents here with PMH of hypertension, diabetes, asthma, and previous smoker presents for chest pain. Who patient here with midsternal chest pain with radiation into his left axilla and left upper extremity that will improve his sleep last night on 02/24. Recently underwent a cardiac evaluation for surgical clearance. Told his EKG showed he has had a previous heart attack which prompted a stress test which was reportedly abnormal. Patient then underwent a CT of his heart, awaiting results/comparison to his previous cardiac CT. Currently reporting in modest improvement in his chest pain at with administration of albuterol, aspirin, and morphine. Reviewed EKG completed in the ED, no significant ST elevations or depressions. - cardiology consulted 49-year-old man with diabetes, hypertension, and hyperlipidemia presented with chest discomfort Chest discomfort -he has been ruled out for acute CT -he can follow-up with his outpatient upholsterer apprentice for the results of his coronary CTA cardiology cleared for discharge -he is agreeable with the plan # Hypertension -continue lisinopril and hydrochlorothiazide # Hyperlipidemia -continue atorvastatin Cardiology will sign off. Please call with additional questions. # COPD Arrived with expiratory wheeze and received an albuterol nebulizer, wheezing has since resolved. Patient is a former smoker and has history of asthma. Likely has some level of underlying COPD. Albuterol nebulizer p.r.n.. Denies any URI symptoms, cough, or sputum production. Low suspicion for COPD exacerbation. - albuterol neb p.r.n. # Polycythemia Patient is a former smoker. No previous history of polycythemia. Elevated hemoglobin upon admission, 21.3. Will give IV fluids. Arrived with expiratory wheeze on exam increasing suspicion for underlying COPD given smoking history. Polycythemia could be related to undiagnosed COPD. - IV fluids - trend CBC Hg slightly improved 21.5-21.3-20.7 continue to trend doppler to r/o DVT completed- negative Status at Discharge Functional status at discharge: independent ambulation Overall status at discharge: patient is progressing back to baseline Time Spent with Patient Time attestation: Total time spent providing and/or coordinating discharge services: Time spent: Less than 30 minutes Exam Const: General: comfortable and no acute distress Other: , male, nontoxic appearance, obese body habitus HENMT: Face/Nose/Sinus: Normal nares present Mouth: Yes moist mucous membranes Eyes: General: appearance normal, both eyes and all related structures Sclera: sclerae normal Pupils: Equal, round and reactive pupils present EOM: EOMs intact bilaterally Resp: Effort & Inspection: normal respiratory effort Auscultation: clear to auscultation bilaterally Cardio: Rate: regular rate Rhythm: regular rhythm Other: S1-S2 present without murmur, rub, ectopy GI: Other: Abdomen rounded but soft and nondistended. No tenderness on exam. Normoactive bowel sounds in all quadrants. Skin: General skin exam: normal color and no rashes or lesions noted Wounds: no wounds Neuro: Cranial nerves: Yes Equal, round and reactive pupils present Speech: normal speech Motor exam (neuro): 5/5 motor strength present throughout Sensory Exam: normal sensation Other: A&O x4 Extrem: General: normal to inspection Psych: Mental Status: mental status grossly normal Affect: normal affect Other: Good insight and judgment, very pleasant DS: Data Data Completed and Pending Labs on day of discharge: Labs from last 24 hours 02/26/25 02/26/25 02/25/25 06:41 03:56 19:28 WBC 7.0 RBC 6.51 H Hgb 20.7 H Hct 60.0 H MCV 92.2 MCH 31.8 MCHC 34.5 RDW 13.3 Plt Count 142 L MPV 10.0 Immature Gran % (Auto) 0.6 H Neut % (Auto) 67.3 Lymph % (Auto) 16.9 L [place] % (Auto) 13.6 H Eos % (Auto) 0.9 Baso % (Auto) 0.7 Lymph # (Auto) 1.18 [place] # (Auto) 1.0 H Eos # (Auto) 0.1 Baso # (Auto) 0.1 Abs Immat Gran (auto) 0.04 H Absolute Neuts (auto) 4.7 Absolute Nucleated RBC 0.000 Nucleated RBC % 0.0 PT INR APTT D-Dimer Sodium 132 L Potassium 4.0 Chloride 95 L Carbon Dioxide 27 Anion Gap 10 BUN 23 H Creatinine 1.12 Estim Creat Clear Calc 107 Estimated GFR > 60 Glucose 129 H POC Capillary Glucose 161 H 198 H Hemoglobin A1c 7.3 H Calcium 8.9 Troponin I Triglycerides 187 H Cholesterol 161 LDL Cholesterol Direct 87 HDL Direct 39 02/25/25 02/25/25 02/25/25 16:37 16:00 13:29 WBC RBC Hgb Hct MCV MCH MCHC RDW Plt Count MPV Immature Gran % (Auto) Neut % (Auto) Lymph % (Auto) [place] % (Auto) Eos % (Auto) Baso % (Auto) Lymph # (Auto) [place] # (Auto) Eos # (Auto) Baso # (Auto) Abs Immat Gran (auto) Absolute Neuts (auto) Absolute Nucleated RBC Nucleated RBC % PT INR APTT D-Dimer Sodium Potassium Chloride Carbon Dioxide Anion Gap BUN Creatinine Estim Creat Clear Calc Estimated GFR Glucose POC Capillary Glucose 133 H Hemoglobin A1c Calcium Troponin I < 0.012 < 0.012 Triglycerides Cholesterol LDL Cholesterol Direct HDL Direct 02/25/25 11:43 WBC RBC Hgb Hct MCV MCH MCHC RDW Plt Count MPV Immature Gran % (Auto) Neut % (Auto) Lymph % (Auto) [place] % (Auto) Eos % (Auto) Baso % (Auto) Lymph # (Auto) [place] # (Auto) Eos # (Auto) Baso # (Auto) Abs Immat Gran (auto) Absolute Neuts (auto) Absolute Nucleated RBC Nucleated RBC % PT 12.3 INR 0.9 APTT 27.4 D-Dimer 0.58 H Sodium Potassium Chloride Carbon Dioxide Anion Gap BUN Creatinine Estim Creat Clear Calc Estimated GFR Glucose POC Capillary Glucose Hemoglobin A1c Calcium Troponin I Triglycerides Cholesterol LDL Cholesterol Direct HDL Direct Discharge Plan Discharge Attending physician on discharge: Andrei Cat Consulting providers: Adalid Schwab Discharging Clinician: Amanda Cunningham Patient Disposition: Home Activity: august shower Diet: heart healthy Discharge Instructions: You had been admitted ofr chest pain. Cardiology was consulted- no acute interventions were needed. Please follow-up with outpatient upholsterer apprentice for the results of your coronary CTA Please return to er if chest pain returns and/or you develop any new symptoms As we discussed, please have your hg(CBC) recheck. It was elevated but it is trending down. If Hg continues to remain high, you may need to f/u with hematology for further work up. Patient Instructions: Antibiotic Form Patient Language: French Stand Alone Forms: General Discharge Information Follow-up/Referrals: Anna,Avtar Quiroz MD [Primary Care Provider, Unknown] - 2 Weeks Discharge Medications: Continued aspirin 81 mg Tablet 81 mg PO HS duloxetine [Cymbalta] 60 mg Capsule,Delayed Release(Dr/Ec) 60 mg PO BID pregabalin 100 mg Capsule 100 mg PO BID esomeprazole magnesium [address] For Susp In Packet 20 mg PO DAILY Jardiance 10 mg Tablet 10 mg PO DAILY metformin 500 mg Tablet 1,000 mg PO BID tizanidine 4 mg Tablet 4 mg PO TID PRN (Reason: Pain) meloxicam 15 mg Tablet 15 mg PO DAILY lisinopril [Prinivil] 20 mg Tablet 20 mg PO DAILY glimepiride 4 mg Tablet 2 mg PO HS hydrochlorothiazide 25 mg Tablet 25 mg PO DAILY Mounjaro 5 mg/0.5 mL pen injector 7.5 mg SUBCUT WEEKLY Patient Comments: Mondays omeprazole 40 mg capsule,delayed release(DR/EC) 40 mg PO DAILY fexofenadine [Kallie Allergy] 180 mg tablet 180 mg PO DAILY atorvastatin 20 mg tablet 40 mg PO QPM trazodone 50 mg tablet 50 mg PO HS PRN (Reason: sleep) oxycodone-acetaminophen 5-325 mg tablet 1 tablet PO Q6H PRN (Reason: pain) Held amoxicillin-pot clavulanate 875-125 mg tablet 1 tablet PO Q12H Hold Instructions: Resume on 03/05/25. please f/u with PCP regarding restarting this medication Discontinued clonazepam 1 mg Tablet 1 mg PO BID ibuprofen 600 mg tablet 600 mg PO QID PRN (Reason: pain) Qty: 25 0RF methocarbamol 750 mg tablet 750 mg PO QID Qty: 25 0RF Date of admission: 02/25/25 13:30 Primary Care Provider: ClydeAvtar Admitting Provider: Andrei Cat Attending physician on admission: Andrei Cat Condition: Stable Quality VTE Prophylaxis VTE prophylaxis: mechanical ordered Hospitalist MIPS Heart Failure (Exclusion) Patient has history of Heart Transplant or Left Ventricular Assistive Device?: No IF YES, STOP HERE Heart Failure (Qualifier) Patient has current or prior documentation of LVEF less than or equal to 40%, or mod/servere depressed LVSF?: No IF NO, STOP HERE
[2025-02-26] MEDS: INSULIN ASPART (*BKC) 100 UNITS/ML SUB-Q (13:16)
--- NOTE | 2025-02-26 13:51 | PC.NURSE ---
pt left with , cane and belongings with pt
== END 2025-02-26 13:51 | disposition home or self-care (01) ==
LOC: ANHED 12:09 → ANHIMU 14:30
PROVIDERS: Student in an Organized Health Care Education/Training Program; Admitting Provider Family Medicine; Emergency Provider Emergency Medicine; PCP Family Medicine; Visit Provider Family Medicine
DX: R07.9 Chest pain, unspecified (principal); J44.1 Chronic obstructive pulmonary disease with (acute) exacerbation; J45.901 Unspecified asthma with (acute) exacerbation; D75.1 Secondary polycythemia; R94.31 Abnormal electrocardiogram [ECG] [EKG]; E11.9 Type 2 diabetes mellitus without complications; I10 Essential (primary) hypertension; E78.5 Hyperlipidemia, unspecified; I25.2 Old myocardial infarction; M16.9 Osteoarthritis of hip, unspecified; M48.00 Spinal stenosis, site unspecified; F12.90 Cannabis use, unspecified, uncomplicated; Z79.84 Long term (current) use of oral hypoglycemic drugs; Z79.1 Long term (current) use of non-steroidal anti-inflammatories (NSAID); Z79.82 Long term (current) use of aspirin; Z79.891 Long term (current) use of opiate analgesic; Z79.85 Long-term (current) use of injectable non-insulin antidiabetic drugs; Z87.891 Personal history of nicotine dependence; Z90.49 Acquired absence of other specified parts of digestive tract
CPT/HCPCS: 36415; 71045; 71275; 80048; 80053; 80061; 82948; 83036; 83690; 83880; 84484; 85025; 85380; 85610; 85730; 93005; 93970; 94640; 96361; 96374; 96375; 96376; 99285; A9270; G0378; J1200; J1815; J2270; J7120; Q9967